=== PATIENT | male | born 1935 | race Caucasian/White ===

== ENCOUNTER 2020-07-28 16:58 | Emergency (ER) | payer MEDICARE, SELFPAY ==
--- NOTE | 2020-07-28 17:19 | PC.NURSE ---
Patient's family member states You seem busy today, we are going to go home and come back tomorrow morning. Patient walked out of ED without difficulty.
== END 2020-07-28 17:19 | disposition left against medical advice (07) ==
PROVIDERS: PCP Internal Medicine
DX: Z53.21 Procedure and treatment not carried out due to patient leaving prior to being seen by health care provider (principal)
CPT/HCPCS: 99199

== ENCOUNTER 2020-07-29 09:26 | Emergency (ER) | payer MEDICARE, SELFPAY ==
--- NOTE | ~2020-07-29 | US_ITS ---
EXAMINATION: US venous doppler LE RT DATE: 07/29/2020 11:08 INDICATION: Right lower limb swelling. TECHNIQUE: Grayscale ultrasound images without and with compression and Doppler ultrasound images of the right lower extremity veins were obtained. COMPARISON: None. FINDINGS: The visualized portions of right common femoral vein, profunda (deep) femoral vein, femoral vein, pop liteal vein, peroneal veins, posterior tibial veins, and greater saphenous vein outflow are patent. IMPRESSION: 1. No deep venous thrombosis. Reviewed, dictated and finalized at location A.
[2020-07-29 09:41] VITALS: BP 155/56; PULSE 91; RESP 17; TEMP 36.7; O2SAT 99
--- NOTE | 2020-07-29 10:42 | ED.EXTPRO ---
HPI - Extremity Problem General Chief complaint: Extremity Problem,Nontraumatic Stated complaint: poss DVT right leg Time Seen by Provider: 07/29/20 09:39 Source: patient, family and RN notes reviewed Limitations: no limitations History of Present Illness HPI Narrative: Patient is 85 years old white male referred to the emergency room by his family physician to rule out the possibility of ITP and deep vein thrombosis. Patient's home visiting nurse called the family physician telling him that patient right lower leg looks like having petechiae, patient is asymptomatic. 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 Patient denies any trauma, fever, chills, nausea, vomiting, shortness of breath, chest pain. Related Data Home Medications Medication Instructions Recorded Confirmed bimatoprost 0.01 % eye drops 1 drop EACH EYE DAILY 10/30/19 06/11/20 calcium carbonate 200 mg calcium 200 mg PO BID 10/30/19 06/11/20 (500 mg) chewable tablet famotidine 20 mg tablet 20 mg PO DAILY 10/30/19 06/11/20 omeprazole 20 mg capsule,delayed 20 mg PO DAILY 10/30/19 06/11/20 release vitamins A,C,O-wqmw-bfiiau 14,320 1 cap PO BID 10/30/19 06/11/20 unit-226 mg-200 unit capsule cholecalciferol (vitamin D3) 125 125 mcg PO DAILY 05/07/20 06/11/20 mcg (5,000 unit) capsule glucosamine 500 cap PO DAILY cap 06/11/20 06/11/20 ky-bgdandotc-tdmoxccd comp 400 mg-D3 667 unit-C-Mn cap lidocaine HCl 4 % topical cream 1 applic TOPICAL BID 06/11/20 06/11/20 magnesium 250 mg tablet 500 mg PO DAILY tablet 06/11/20 06/11/20 naproxen sodium 220 mg tablet 220 mg PO BID PRN 06/11/20 06/11/20 Allergies Allergy/AdvReac Type Severity Reaction Status Date / Time Sulfa (Sulfonamide Allergy Unknown rash Verified 07/29/20 09:47 Antibiotics) Review of Systems Review of Systems: Narrative: CONSTITUTIONAL: Denies fever, chills, or sweats. EYES: Denies visual changes, redness, or discharge. ENT: Denies rhinorrhea, congestion, sore throat, or otalgia. CARDIOVASCULAR: Denies chest pain, palpitations, or edema. RESPIRATORY: Denies cough or dyspnea. GASTROINTESTINAL: Denies abdominal pain, nausea, vomiting, or diarrhea. GENITOURINARY: Denies dysuria or hematuria. SKIN: Denies rash or itching. MUSCULOSKELETAL: Denies back pain, joint pain, or myalgia. NEUROLOGIC: Denies headache, numbness, or weakness. PSYCHIATRIC: Denies anxiety or depression. [facility] Family History Family History Mother Hypertension Cerebrovascular accident, Onset Age: 70 Family history of diabetes mellitus in first degree relative Father Patient's father is Social History Social History Smoking status: Never smoker Second hand tobacco smoke exposure: No Alcohol intake: never Substance use: never Gender identity (if verbalized by the patient): Male Exam Narrative: Exam Narrative: General appearance: Well-developed, well-nourished Skin: Normal color, left lower extremity showed brownish discoloration of the lower leg with scattered brownish spots varies between 2 mm to 5 mm. Right lower leg showed scattered petechiae, superficial ulceration up to 1 cm, no discharge, no tenderness, no warmth. Head: Normocephalic, nontraumatic Eyes: Clear conjunctiva ENT: Oropharynx normal, ears normal, nose normal Neck: Supple, nontender Chest and respiratory: Airway patent, no respiratory distress, no accessory muscle use Heart: Regular rate/rhythm Abdomen: Soft, nontender, no organomegaly, quiet bowel sounds Vascular: Normal peripheral pulses, normal capillary refill. Musculoskeletal: Normal range of motion, nontender back Neurologic: Alert and oriented ?3, PIZZAMAKER is normal as tested, no gross motor deficit
--- NOTE | 2020-07-29 10:54 | PC.NURSE ---
Pt to U/S via stretcher at this time.
[2020-07-29 11:00] LABS: Hematocrit 36.3 % (42.0-52.0); Hemoglobin 11.9 g/dL (14.0-18.0); Mean Corpuscular HGB Conc 32.8 g/dl (32-36); Mean Corpuscular Hemoglobin 28.6 pg (26-34); Mean Corpuscular Volume 87.3 fl (80-100); Mean Platelet Volume 10.8 fl (7.4-10.4); Platelet Count Result 110 k/mm3 (150-375); Red Blood Count 4.16 M/mm3 (4.6-6.20); Red Cell Distribution Width 14.6 % (11.5-14.5); White Blood Count 9.1 K/mm3 (4.5-10.0)
[2020-07-29 11:12] LABS: INR 1.1; Prothrombin Time 14.4 Seconds (11.1-14.7)
[2020-07-29 11:13] LABS: Alanine Aminotransferase 11 U/L (4-50); Albumin Level 4.1 g/dL (3.5-5.1); Alkaline Phosphatase 74 U/L (38-126); Anion Gap 6 mmol/L (8-16); Aspartate Amino Transferase 27 U/L (17-59); Bilirubin,Total 0.5 mg/dL (0.2-1.3); Blood Urea Nitrogen 27 mg/dL (9-20); Calcium 9.1 mg/dL (8.4-10.2); Carbon Dioxide 28 mmol/L (22-30); Chloride 104 mmol/L (98-107); Estimated CRCL calculation 34 ml/min; Estimated Glomerular Filt Rate 48; Glucose 106 mg/dL (75-110); Partial Thromboplastin Time 29.4 SECONDS (22.3-36.8); Potassium 5.4 mmol/L (3.4-5.0); Sodium 138 mmol/L (137-145)
[2020-07-29 11:41] VITALS: PULSE 66; RESP 17; O2SAT 99
[2020-07-29 12:08] VITALS: BP 146/65; PULSE 80; RESP 13; O2SAT 99
[2020-07-29 12:42] LABS: Lymphocytes Absolute Manual 0.36 K/mm3 (1.1-4.5); Neutrophils Percent Manual 96 % (46-73); Nucleated Red Blood Cells 1 %; Platelet Estimate Adequate (Adequate); Total Cells Counted 100
== END 2020-07-29 12:10 | disposition home or self-care (01) ==
PROVIDERS: Emergency Provider Emergency Medicine; PCP Internal Medicine
DX: I87.2 Venous insufficiency (chronic) (peripheral) (principal); D69.6 Thrombocytopenia, unspecified; E87.5 Hyperkalemia
CPT/HCPCS: 36415; 80053; 85025; 85610; 85730; 93971; 99284

== ENCOUNTER 2021-02-20 13:16 | Outpatient (NON) | payer MEDICARE, SELFPAY ==
[2021-02-20 14:18] LABS: Basophils Percent Auto 0.1 % (0.2-1.2); Eosinophils Absolute Auto 0.1 K/mm3 (0-0.3); Eosinophils Percent Auto 1.5 % (0-4.4); Hematocrit 34.9 % (42.0-52.0); Hemoglobin 11.2 g/dL (14.0-18.0); Immature Granulocyte Absolute 0.02 K/mm3 (0.00-0.031); Immature Granulocyte Percent A 0.3 % (0-0.5); Lymphocytes Absolute Auto 1.62 K/mm3 (0.9-3.2); Lymphocytes Percent Auto 21.4 % (18.3-44.2); Mean Corpuscular HGB Conc 32.1 g/dl (32-36); Mean Corpuscular Volume 90.4 fl (80-100); Mean Platelet Volume 11.3 fl (7.4-10.4); Monocytes Absolute Auto 0.6 K/mm3 (0.1-0.6); Monocytes Percent Auto 7.9 % (2.6-8.5); Neutrophils Absolute Auto 5.2 K/mm3 (1.3-6.7); Neutrophils Percent Auto 68.8 % (45.5-73.1); Platelet Count Result 118 k/mm3 (150-375); Red Blood Count 3.86 M/mm3 (4.6-6.20); Red Cell Distribution Width 14.6 % (11.5-14.5); White Blood Count 7.6 K/mm3 (4.5-10.0)
[2021-02-20 14:52] LABS: Alanine Aminotransferase 12 U/L (4-50); Albumin Level 3.9 g/dL (3.5-5.1); Alkaline Phosphatase 73 U/L (38-126); Anion Gap 1 mmol/L (8-16); Aspartate Amino Transferase 25 U/L (17-59); Bilirubin,Total 0.5 mg/dL (0.2-1.3); Blood Urea Nitrogen 19 mg/dL (9-20); Calcium 8.9 mg/dL (8.4-10.2); Carbon Dioxide 31 mmol/L (22-30); Chloride 103 mmol/L (98-107); Estimated Glomerular Filt Rate > 60; Glucose 93 mg/dL (65-110); Potassium 4.9 mmol/L (3.4-5.0); Sodium 135 mmol/L (137-145)
== END 2021-02-20 13:17 | disposition home or self-care (01) ==
PROVIDERS: PCP Internal Medicine; Visit Provider Internal Medicine
DX: D64.9 Anemia, unspecified (principal); E03.9 Hypothyroidism, unspecified; L03.115 Cellulitis of right lower limb; L97.911 Non-pressure chronic ulcer of unspecified part of right lower leg limited to breakdown of skin; I10 Essential (primary) hypertension
CPT/HCPCS: 80053; 85025; 87070; 87077; 87186; 87205

== ENCOUNTER 2021-04-16 12:42 | Outpatient (NON) | payer MEDICARE, SELFPAY | END 2021-04-16 12:43 | disposition home or self-care (01) | LOC: HOME HLTH 12:49 | PROVIDERS: PCP Internal Medicine; Visit Provider Internal Medicine | DX: L03.115 Cellulitis of right lower limb (principal); L97.911 Non-pressure chronic ulcer of unspecified part of right lower leg limited to breakdown of skin; D64.9 Anemia, unspecified; E03.9 Hypothyroidism, unspecified | CPT/HCPCS: 87070; 87077; 87186; 87205 ==

== ENCOUNTER 2021-05-26 01:44 | Inpatient (IN) | payer MEDICARE, SELFPAY ==
[2021-05-26] VITALS (37 sets, daily range): BP systolic 142–191; BP diastolic 59–82; PULSE 69–94; RESP 9–26; TEMP 36.2–36.6; O2SAT 96–100; BMI 27.1; BMI 10.0
--- NOTE | 2021-05-26 02:21 | ED.GENADULT ---
HPI - General Adult General Chief complaint: Weakness Stated complaint: BILATERAL LEGS CANT TIM Shaffer POSS Time Seen by Provider: 05/26/21 01:52 History of Present Illness HPI narrative: 86-year-old male presented emergency department for evaluation of generalized weakness. Patient states he does live at home alone. Patient states that his family members who usually take care of them are sick and have been staying away . Patient states this evening he went to try and use bathroom and felt his legs were too weak for him to move. Patient feels that this has been an issue that has been steadily worsening he does not feel this issue is new to [facility]. Patient stated himself that he feels he needs to go into the penitentiary, patient states it is time . Patient denies any chest pain or shortness of breath. Patient denies any nausea vomiting or diarrhea. Patient denies any focal numbness or weakness. Related Data Home Medications Medication Instructions Recorded Confirmed bimatoprost 0.01 % eye drops 1 drop EACH EYE DAILY 10/30/19 02/23/21 calcium carbonate 200 mg calcium 200 mg PO BID 10/30/19 02/23/21 (500 mg) chewable tablet vitamins A,C,X-xrhy-fkexuc 14,320 1 cap PO BID 10/30/19 02/23/21 unit-226 mg-200 unit capsule cholecalciferol (vitamin D3) 125 125 mcg PO DAILY 05/07/20 02/23/21 mcg (5,000 unit) capsule glucosamine 500 cap PO DAILY cap 06/11/20 02/23/21 tl-mzhltuyuf-mhdobrle comp 400 mg-D3 667 unit-C-Mn cap lidocaine HCl 4 % topical cream 1 applic TOPICAL BID 06/11/20 02/23/21 magnesium 250 mg tablet 500 mg PO DAILY tablet 06/11/20 02/23/21 naproxen sodium 220 mg tablet 220 mg PO BID PRN 06/11/20 02/23/21 ascorbic acid (vitamin C) 500 mg mg PO 02/23/21 02/23/21 capsule zinc acetate 25 mg (zinc) capsule 25 mg PO DAILY 02/23/21 02/23/21 Allergies Allergy/AdvReac Type Severity Reaction Status Date / Time Sulfa (Sulfonamide Allergy Unknown rash Verified 05/26/21 01:52 Antibiotics) Review of Systems Review of Systems: CONSTITUTIONAL: Reports increased generalized weakness, reports falls EYES: Denies visual changes, redness, or discharge. ENT: Denies rhinorrhea, congestion, sore throat, or otalgia. CARDIOVASCULAR: Denies chest pain, palpitations, or edema. RESPIRATORY: Denies cough or dyspnea. GASTROINTESTINAL: Denies abdominal pain, nausea, vomiting, or diarrhea. GENITOURINARY: Denies dysuria or hematuria. SKIN: Denies rash or itching. MUSCULOSKELETAL: Denies back pain, joint pain, or myalgia. NEUROLOGIC: Denies headache, numbness, or weakness. Does report generalized weakness but no focal weakness PMFSH Family History Family History Mother Hypertension Cerebrovascular accident, Onset Age: 70 Family history of diabetes mellitus in first degree relative Father Patient's father is Social History Social History Smoking status: Never smoker Second hand tobacco smoke exposure: No Alcohol intake: never Substance use: never Gender identity (if verbalized by the patient): Male Exam Narrative: APPEARANCE: Well appearing, no pain, no distress, well-nourished. HEAD: normocephalic, atraumatic. EYES: PERRLA/EOMI, conjunctivae clear. NOSE: Normal no drainage NECK: Supple. No adenopathy, no masses. RESPIRATORY: Airway patent, respirations nonlabored. Clear to auscultation bilaterally, no rales, rhonchi, wheezing. CARDIOVASCULAR: Regular rate and rhythm without murmurs rubs or gallops. ABDOMINAL: Soft, nontender, nondistended, normal bowel sounds MUSCULOSKELETAL: Moves all extremities. Strength/ROM intact, No edema, No calf tenderness. Some bruises to lower extremities NEURO: Alert. Cranial nerves II through XII intact. Good coordination SKIN: Warm, dry. Normal Color Course Course Emergency Course: Patient states he is requesting penitentiary
[2021-05-26 02:34] LABS: Basophils Percent Auto 0.1 % (0.2-1.2); Eosinophils Absolute Auto 0.2 K/mm3 (0-0.3); Eosinophils Percent Auto 2.1 % (0-4.4); Hematocrit 37.3 % (42.0-52.0); Hemoglobin 11.9 g/dL (14.0-18.0); Immature Granulocyte Absolute 0.01 K/mm3 (0.00-0.031); Immature Granulocyte Percent A 0.1 % (0-0.5); Lymphocytes Absolute Auto 1.97 K/mm3 (0.9-3.2); Lymphocytes Percent Auto 28.1 % (18.3-44.2); Mean Corpuscular HGB Conc 31.9 g/dl (32-36); Mean Corpuscular Hemoglobin 28.5 pg (26-34); Mean Corpuscular Volume 89.2 fl (80-100); Mean Platelet Volume 10.8 fl (7.4-10.4); Monocytes Absolute Auto 0.7 K/mm3 (0.1-0.6); Monocytes Percent Auto 10.5 % (2.6-8.5); Neutrophils Absolute Auto 4.1 K/mm3 (1.3-6.7); Neutrophils Percent Auto 59.1 % (45.5-73.1); Platelet Count Result 104 k/mm3 (150-375); Red Blood Count 4.18 M/mm3 (4.6-6.20); Red Cell Distribution Width 14.7 % (11.5-14.5)
[2021-05-26 02:54] LABS: Alanine Aminotransferase 15 U/L (4-50); Albumin Level 4.3 g/dL (3.5-5.1); Alkaline Phosphatase 84 U/L (38-126); Anion Gap 7 mmol/L (8-16); Aspartate Amino Transferase 28 U/L (17-59); Bilirubin,Total 0.6 mg/dL (0.2-1.3); Blood Urea Nitrogen 21 mg/dL (9-20); Calcium 9.4 mg/dL (8.4-10.2); Carbon Dioxide 26 mmol/L (22-30); Chloride 102 mmol/L (98-107); Estimated CRCL calculation 42 ml/min; Estimated Glomerular Filt Rate 57; Glucose 114 mg/dL (65-110); Potassium 4.3 mmol/L (3.4-5.0); Sodium 135 mmol/L (137-145)
[2021-05-26 03:25] LABS: SARS-CoV-2 RNA PCR Negative
--- NOTE | 2021-05-26 03:26 | ECG_ITS ---
Measurements Intervals [place] Rate: 85 P: 63 UT: 176 QRS: 0 QRSD: 92 T: 59 QT: 361 QTc: 429 Interpretive Statements SINUS RHYTHM ATRIAL PREMATURE COMPLEX CANNOT RULE OUT SEPTAL INFARCT, AGE INDETERMINATE BASELINE ARTIFACT- I, II, III, AVR, AVL, AVF, V1, V3-V5 ABNORMAL ECG Electronically Signed On 05-26-2021 6:12:16 FENCE MACHINE OPERATOR by Greg Mesa D.O.
[2021-05-26 04:15] LABS: Add Urine Microscopic? NO; Appearance Urine Clear (Clear); Bilirubin Urine Negative (Negative); Blood Urine Negative (Negative); Color Urine Colorless (Yellow); Glucose Urine UA Negative (Negative); Ketones Urine Negative (Negative); Leukocyte Esterase Ur Negative LEU/UL (Negative); Nitrate Urine Negative (Negative); Protein Urine Negative (Negative); RBC Urine 0-2 /hpf (0-2); Specific Grav Ur 1.005 (1.001-1.035); Urobilinogen Urine Negative mg/dL (<2.0); WBC Urine 0-3 /hpf
--- NOTE | 2021-05-26 07:02 | ADMGEN ---
This patient, Sebastián Andersen, was admitted to Medical Room 340-01. Patient/family oriented to hospital policies and general routines including ID bracelet, bed and alarms, visiting hours, pain management, procedures, bathroom and other care routines, personal items, smoking policy, room service/diet, and visiting hours. Information on how to activate the Rapid Response Team has been discussed. Patient/Family are encouraged to report perceived risks to care and to ask questions if they do not understand what they are told or what they should do.
[2021-05-26] MEDS: NAPROXEN SODIUM 220 MG TABLET PO (12:16)
[2021-05-26] MEDS: MENTHOL 10% / METHYL SALICYLATE 15% 57 GM TUBE 1 APPLIC TOPICAL (12:19)
--- NOTE | 2021-05-26 13:25 | PM.IMHP ---
H&P: HPI History of Present Illness Date/Time: 05/26/21 13:25 ED-HPI narrative: 86-year-old male presented emergency department for evaluation of generalized weakness. Patient states he does live at home alone. Patient states that his family members who usually take care of them are sick and have been staying away . Patient states this evening he went to try and use bathroom and felt his legs were too weak for him to move. Patient feels that this has been an issue that has been steadily worsening he does not feel this issue is new to tonight. Patient stated himself that he feels he needs to go into the intermediate, patient states it is time . today patient continued to express he is tired, unable to ambulate and needs assistance with his ADL and would like to be placed in intermediate, discussed with the patient will start the patient on physical therapy occupation therapy and evaluate the patient, patient may benefit going to a residential facility with gentle rehab before discharging home or intermediate. patient admitted observation status Chief Complaint: generalized weakness Review of Systems Review of Systems: All systems reviewed & are unremarkable except as noted in HPI and below PMFSH Family History Family History Mother Hypertension Cerebrovascular accident, Onset Age: 70 Family history of diabetes mellitus in first degree relative Father Patient's father is Social History Social History Smoking status: Former smoker Second hand tobacco smoke exposure: No Alcohol intake: never Substance use: never Substance use type: does not use Gender identity (if verbalized by the patient): Male Spiritual care concerns: No Meds Home Medications and Allergies Home Medications Medication Instructions Recorded Confirmed Type bimatoprost 0.01 % eye drops 1 drop EACH EYE DAILY 10/30/19 05/26/21 History calcium carbonate 200 mg calcium 200 mg PO BID PRN 10/30/19 05/26/21 History (500 mg) chewable tablet vitamins A,C,U-ckgt-uswyin 14,320 1 cap PO BID 10/30/19 05/26/21 History unit-226 mg-200 unit capsule vitamin B12 0.5 mg-folic acid 1 mg 1 tablet PO DAILY #30 tablet 11/19/19 05/26/21 Rx tablet cholecalciferol (vitamin D3) 125 125 mcg PO DAILY 05/07/20 05/26/21 History mcg (5,000 unit) capsule glucosamine 500 1 cap PO DAILY cap 06/11/20 05/26/21 History zt-isiwcnexj-dthalwgs comp 400 mg-D3 667 unit-C-Mn cap lidocaine HCl 4 % topical cream 1 applic TOPICAL BID PRN 06/11/20 05/26/21 History magnesium 250 mg tablet 500 mg PO DAILY tablet 06/11/20 05/26/21 History naproxen sodium 220 mg tablet 220 mg PO BID PRN 06/11/20 05/26/21 History triamcinolone acetonide 0.1 % 1 applic TOPICAL BID #80 g 08/08/20 05/26/21 Rx topical cream levothyroxine 137 mcg tablet 137 mcg PO DAILY #90 tablet 02/19/21 05/26/21 Rx ascorbic acid (vitamin C) 500 mg 500 mg PO DAILY 02/23/21 05/26/21 History capsule omeprazole 20 mg capsule,delayed 20 mg PO DAILY #90 cap 02/23/21 05/26/21 Rx release zinc acetate 25 mg (zinc) capsule 25 mg PO DAILY 02/23/21 05/26/21 History metoprolol tartrate 12.5 mg PO DAILY 05/26/21 05/26/21 History Allergies Allergy/AdvReac Type Severity Reaction Status Date / Time Sulfa (Sulfonamide Allergy Unknown rash Verified 05/26/21 07:32 Antibiotics) Vital Signs Vital Signs - 24 hr 05/26/21 01:43 05/26/21 01:48 05/26/21 01:49 Temperature 97.4 F L Pulse Rate 86 83 86 Respiratory Rate 17 16 18 Blood Pressure 181/81 H 191/67 H 181/81 H Pulse Oximetry 100 100 100 05/26/21 01:50 05/26/21 01:51 05/26/21 02:00 Temperature Pulse Rate 83 94 85 Respiratory Rate 17 16 Blood Pressure Pulse Oximetry 100 99 05/26/21 02:01 05/26/21 02:15 05/26/21 02:16 Temperature Pulse Rate 86 83 85 Respiratory Rate 12 16
--- NOTE | 2021-05-26 14:06 | PC.NURSE ---
On 05/26/21, the student, Ifrah Landrum, provided care and completed [facility] documentation on this patient. I have reviewed the student's documentation and agree with the findings.
[2021-05-26] MEDS: OPTI-GEN TAB 1 TABLET PO (16:49)
[2021-05-27] VITALS (7 sets, daily range): BP systolic 113–165; BP diastolic 58–85; PULSE 76–88; RESP 16–18; TEMP 36–37.1; O2SAT 97–99
[2021-05-27] MEDS: MENTHOL 10% / METHYL SALICYLATE 15% 57 GM TUBE 1 APPLIC TOPICAL (04:57)
[2021-05-27] MEDS: LEVOTHYROXINE SODIUM 25 MCG TABLET PO (05:44)
[2021-05-27] MEDS: LEVOTHYROXINE SODIUM 112 MCG TABLET PO (05:44)
[2021-05-27] MEDS: METOPROLOL TARTRATE 12.5 MG TABLET PO (08:02)
[2021-05-27] MEDS: PANTOPRAZOLE 40 MG TABLET PO (08:02)
[2021-05-27] MEDS: FOLIC ACID 1 MG TABLET PO (08:02)
[2021-05-27] MEDS: OPTI-GEN TAB 1 TABLET PO ×2 (08:03→17:30)
[2021-05-27] MEDS: CHOLECALCIFEROL 1,000 UNITS TABLET 5000 UNITS PO (08:03)
[2021-05-27] MEDS: LATANOPROST 0.005% OP SOLN 2.5 ML BTL 1 DROP EACH EYE (08:03)
[2021-05-27] MEDS: ASCORBIC ACID 500 MG TABLET PO (08:03)
[2021-05-27] MEDS: MAGNESIUM 27 MG TABLET (500 MG MAG GLUCONATE) PO (08:03)
[2021-05-27] MEDS: ZINC SULFATE 220 MG CAPSULE PO (08:03)
[2021-05-27] MEDS: CYANOCOBALAMIN 500 MCG TABLET PO (08:03)
[2021-05-27] MEDS: NAPROXEN SODIUM 220 MG TABLET PO ×2 (09:19→20:15)
--- NOTE | 2021-05-27 15:18 | PM.IMPN ---
Progress Note: A&P Assessment and Plan (1) Generalized weakness: Code(s): R53.1 - Weakness Status: Acute Assessment and Plan: ED-HPI narrative: 86-year-old male presented emergency department for evaluation of generalized weakness. Patient states he does live at home alone. Patient states that his family members who usually take care of them are sick and have been staying away . Patient states this evening he went to try and use bathroom and felt his legs were too weak for him to move. Patient feels that this has been an issue that has been steadily worsening he does not feel this issue is new to [facility]. Patient stated himself that he feels he needs to go into the halfway, patient states it is time . 05/26/2021 Interval history: patient continued to express he is tired, unable to ambulate and needs assistance with his ADL and would like to be placed in halfway, discussed with the patient will start the patient on physical therapy occupation therapy and evaluate the patient patient may benefit going to a group home facility with gentle rehab before discharging home or halfway, 05/27/2021 Interval history: today again patient stated he does not base today PT OT or go to rehab will like to be admitted to nursing, patient was seen by careers adviser, and patient decided to go under hospice care will continue to monitor and further recommendation to follow. (2) Chronic pain of both knees: Code(s): M25.561 - Pain in right knee; M25.562 - Pain in left knee; G89.29 - Other chronic pain Status: Acute Assessment and Plan: will have a PT OT evaluate the patient (3) Essential (primary) hypertension: Code(s): I10 - Essential (primary) hypertension Status: Acute Assessment and Plan: continue home regimen and monitor (4) Paroxysmal atrial fibrillation: Onset Date: 06/15/17 Code(s): I48.0 - Paroxysmal atrial fibrillation Status: Acute Assessment and Plan: rate is controlled with beta-torres, patient is not anticoagulated due to risk of fall and injury (5) Hypothyroid: Code(s): E03.9 - Hypothyroidism, unspecified Status: Acute Assessment and Plan: will continue home regimen and monitor Subjective Date/time seen: 05/27/21 15:18 ED-HPI narrative: 86-year-old male presented emergency department for evaluation of generalized weakness. Patient states he does live at home alone. Patient states that his family members who usually take care of them are sick and have been staying away . Patient states this evening he went to try and use bathroom and felt his legs were too weak for him to move. Patient feels that this has been an issue that has been steadily worsening he does not feel this issue is new to [facility]. Patient stated himself that he feels he needs to go into the halfway, patient states it is time . 05/26/2021 Interval history: patient continued to express he is tired, unable to ambulate and needs assistance with his ADL and would like to be placed in halfway, discussed with the patient will start the patient on physical therapy occupation therapy and evaluate the patient patient may benefit going to a group home facility with gentle rehab before discharging home or halfway, 05/27/2021 Interval history: today again patient stated he does not base today PT OT or go to rehab will like to be admitted to nursing, patient was seen by careers adviser, and patient decided to go under hospice care will continue to monitor and further recommendation to follow. Review of Systems Review of Systems: All systems reviewed & are unremarkable except as noted in HPI and below Exam Narrative: elderly frail Patient is comfortable, NAD HEENT: eyes are clear and none icteric LUNGS: normal respiratory effort ABD: nondistended Lower extremities: no edema SKIN: nonjaundiced Neuro: grossly intact. Objective
[2021-05-28] MEDS: LEVOTHYROXINE SODIUM 112 MCG TABLET PO (05:53)
[2021-05-28] MEDS: LEVOTHYROXINE SODIUM 25 MCG TABLET PO (05:53)
[2021-05-28 06:05] VITALS: BP 151/70; PULSE 81; RESP 16; TEMP 36.1; O2SAT 99
[2021-05-28] MEDS: NAPROXEN SODIUM 220 MG TABLET PO (08:07)
[2021-05-28] MEDS: MAGNESIUM 27 MG TABLET (500 MG MAG GLUCONATE) PO (08:07)
[2021-05-28] MEDS: ZINC SULFATE 220 MG CAPSULE PO (08:07)
[2021-05-28] MEDS: FOLIC ACID 1 MG TABLET PO (08:07)
[2021-05-28] MEDS: OPTI-GEN TAB 1 TABLET PO (08:08)
[2021-05-28] MEDS: PANTOPRAZOLE 40 MG TABLET PO (08:08)
[2021-05-28] MEDS: CYANOCOBALAMIN 500 MCG TABLET PO (08:08)
[2021-05-28] MEDS: ASCORBIC ACID 500 MG TABLET PO (08:09)
[2021-05-28] MEDS: LATANOPROST 0.005% OP SOLN 2.5 ML BTL 1 DROP EACH EYE (08:09)
[2021-05-28] MEDS: CHOLECALCIFEROL 1,000 UNITS TABLET 5000 UNITS PO (08:09)
[2021-05-28 08:10] VITALS: PULSE 81
[2021-05-28] MEDS: METOPROLOL TARTRATE 12.5 MG TABLET PO (08:10)
[2021-05-28] MEDS: MENTHOL 10% / METHYL SALICYLATE 15% 57 GM TUBE 1 APPLIC TOPICAL (08:11)
--- NOTE | 2021-05-28 11:46 | PM.DS ---
DS: Admitting Diagnosis Discharge Date 05/28/2021 Admitting Diagnosis Generalized weakness DS: Discharge Diagnosis Discharge Diagnosis (1) Generalized weakness: Code(s): R53.1 - Weakness Status: Acute Assessment and Plan: ED-HPI narrative: 86-year-old male presented emergency department for evaluation of generalized weakness. Patient states he does live at home alone. Patient states that his family members who usually take care of them are sick and have been staying away . Patient states this evening he went to try and use bathroom and felt his legs were too weak for him to move. Patient feels that this has been an issue that has been steadily worsening he does not feel this issue is new to [facility]. Patient stated himself that he feels he needs to go into the custodial, patient states it is time . 05/26/2021 Interval history: patient continued to express he is tired, unable to ambulate and needs assistance with his ADL and would like to be placed in custodial, discussed with the patient will start the patient on physical therapy occupation therapy and evaluate the patient patient may benefit going to a fpc facility with gentle rehab before discharging home or custodial, 05/27/2021 Interval history: today again patient stated he does not base today PT OT or go to rehab will like to be admitted to nursing, patient was seen by lawn care technician, and patient decided to go under hospice care will continue to monitor and further recommendation to follow. (2) Chronic pain of both knees: Code(s): M25.561 - Pain in right knee; M25.562 - Pain in left knee; G89.29 - Other chronic pain Status: Acute Assessment and Plan: will have a PT OT evaluate the patient (3) Essential (primary) hypertension: Code(s): I10 - Essential (primary) hypertension Status: Acute Assessment and Plan: continue home regimen and monitor (4) Paroxysmal atrial fibrillation: Onset Date: 06/15/17 Code(s): I48.0 - Paroxysmal atrial fibrillation Status: Acute Assessment and Plan: rate is controlled with beta-torres, patient is not anticoagulated due to risk of fall and injury (5) Hypothyroid: Code(s): E03.9 - Hypothyroidism, unspecified Status: Acute Assessment and Plan: will continue home regimen and monitor DS: Summary Hospital Course Reason for hospitalization: ED-HPI narrative: 86-year-old male presented emergency department for evaluation of generalized weakness. Patient states he does live at home alone. Patient states that his family members who usually take care of them are sick and have been staying away . Patient states this evening he went to try and use bathroom and felt his legs were too weak for him to move. Patient feels that this has been an issue that has been steadily worsening he does not feel this issue is new to tonight. Patient stated himself that he feels he needs to go into the custodial, patient states it is time . today patient continued to express he is tired, unable to ambulate and needs assistance with his ADL and would like to be placed in custodial, discussed with the patient will start the patient on physical therapy occupation therapy and evaluate the patient, patient may benefit going to a fpc facility with gentle rehab before discharging home or custodial. Hospital Course: ED-HPI narrative: 86-year-old male presented emergency department for evaluation of generalized weakness. Patient states he does live at home alone. Patient states that his family members who usually take care of them are sick and have been staying away . Patient states this evening he went to try and use bathroom and felt his legs were too weak for him to move. Patient feels that this has been an issue that has been steadily worsening he does not feel this issue is new to [facility]. Patient stated himself that he feels he
[2021-05-28 13:43] VITALS: BP 155/68; PULSE 85; RESP 18; TEMP 36.1; O2SAT 98
[2021-05-28 14:15] LABS: EDCOVIDSCREEN Negative (Negative)
[2021-05-28 14:28] VITALS: O2SAT 97
--- NOTE | 2021-05-28 15:15 | PC.NURSE ---
Addendum entered by Valentino Sherwood RN 05/28/21 17:28: 1730: Transportation arrived at this time. Addendum entered by Valentino Sherwood RN 05/28/21 17:05: 1536: [facility] was called at this time, stated will be able to pick patient up at 19:30. Trip number is [id number]: Called patient brother at this time, no answer. Message left and updated, about what time patient will arrive at [facility]. Original Note: 1515: Report given to Chica MAI, at [facility] at this time.
== END 2021-05-28 17:27 | disposition hospice, inpatient (51) | DRG 948 ==
LOC: ANHED 03:31 → ANH3MED 05:47
PROVIDERS: Admitting Provider Internal Medicine; Emergency Provider Emergency Medicine; PCP Internal Medicine; Visit Provider Family Medicine
DX: R53.1 Weakness (principal); Z20.822 Contact with and (suspected) exposure to COVID-19; Z87.891 Personal history of nicotine dependence; M25.561 Pain in right knee; I10 Essential (primary) hypertension; I48.0 Paroxysmal atrial fibrillation; E03.9 Hypothyroidism, unspecified; M25.562 Pain in left knee; G89.29 Other chronic pain; Z74.1 Need for assistance with personal care; Z79.899 Other long term (current) drug therapy
CPT/HCPCS: 36415; 80053; 81003; 83605; 85025; 87426; 93005; 97110; 97162; 97165; 97535; 99285; A9270; C9803; U0003; U0005

== ENCOUNTER 2022-01-19 20:59 | Inpatient (IN) | payer MEDICARE, SELFPAY ==
--- NOTE | ~2022-01-19 | US_ITS ---
US abdomen limited INDICATION: Abnormal liver function tests. PROCEDURE: Realtime right upper abdominal ultrasound. COMPARISON: No prior studies for comparison. FINDINGS: The pancreas is normal without focal mass or pancreatic ductal dilation. Liver echotexture is normal without focal mass or intrahepatic biliary dilatation. Liver is enlarged measuring 16.6 cm . There is normal directional flow in the portal vein. Gallbladder is surgically absent. Common bile duct measures 2 mm. IMPRESSION: 1: Hepatomegaly. 2: Status post cholecystectomy. Reviewed, dictated and finalized at location B.
--- NOTE | ~2022-01-19 | CT_ITS ---
EXAMINATION: CT abdomen pelvis w con DATE: 01/19/2022 22:18 INDICATION: Transaminitis, fever TECHNIQUE: Computed tomography (CT) of the abdomen and pelvis was performed with 100 mL Omnipaque-350 intravenous contrast. Automated exposure control and iterative reconstruction technique were employe d. The dose-length product was 464.61 mGy-cm. COMPARISON: None. FINDINGS: Mild motion artifact. Lower thorax: Senescent change and dependent atelectasis. Mild coronary artery calcification. Liver: Mild intrahepatic duct dilation. Granulomatous calcification. Biliary/Gallbladder: Gallbladder is absent. The common bile duct is dilated to 11 mm, without inflamm atory change. Pancreas: No mass or duct dilation. Spleen: Granulomatous calcification. Adrenals:No mass. Kidneys: Cortical atrophy. No suspicious mass. No hydronephrosis. No nephrolithiasis. GI tract: Antral gastric wall edema. No small or large bowel dilation. Appendix not visualized, likel y surgically absent Mesentery/Peritoneum: No ascites, mass, or free air. Retroperitoneum: No mass. Atherosclerotic abdominal aortic and/or arterial calcifications. Pelvis: Partial obscuration by metal artifact. Mild bladder wall thickening. Marked prostatomegaly. Soft Tissues: Bilateral hydroceles. Soft tissues and body wall otherwise unremarkable. Bones: No acute osseous finding. Severe left hip arthritis. Uncomplicated right hip arthroplasty. IMPRESSION: Intra and extrahepatic bile duct dilation, without inflammatory changes or obstructing stone or mass, commonly attributed to the postcholecystectomy state, noting that early cholangitis could appear sim ilar. Antral gastritis. Reviewed, dictated and finalized at location K. IMPRESSION: Intra and extrahepatic bile duct dilation, without inflammatory changes or obst ructing stone or mass, commonly attributed to the postcholecystectomy state, no ting that early cholangitis could appear similar. Antral gastritis.
--- NOTE | ~2022-01-19 | XR_ITS ---
XR abdomen obstructive series 01/22/2022 21:56 Indication: Abdomen surgery. Procedure: Supine and upright views of the abdomen Comparison: No prior studies for comparison. Findings: There is retrocardiac opacification of the left lower lung which may represent atelectasis or developing pneumonia. There is moderate gas throughout the small bowel and colon. Moderate distal colonic fecal loading. No definite obstruction. There are severe osteoarthritis of the left hip. Ther e is a right total hip arthroplasty. No free air. There are cholecystectomy clips. Impression: 1: Nonspecific bowel gas pattern without definite obstruction. 2: Severe osteoarthritis of the left hip. 3: Retrocardiac airspace disease may represent atelectasis or pneumonia. Reviewed, dictated and finalized at location A. Impression: 1: Nonspecific bowel gas pattern without definite obstruction. 2: Severe osteoarthritis of the left hip. 3: Retrocardiac airspace disease may represent atelectasis or pneumonia.
--- NOTE | ~2022-01-19 | XR_ITS ---
EXAMINATION: XR ERCP DATE: 01/22/2022 14:43 INDICATION: Abdominal pain. TECHNIQUE: 5 spot fluoroscopic images of the right upper quadrant were obtained during endoscopic ret rograde cholangiopancreatography (ERCP). Fluoroscopy exposure time was 70 seconds. COMPARISON: MRCP 01/20/2022 FINDINGS: The endoscope is in the second portion of the duodenum. There is contrast opacification of the common duct, which is enlarged. IMPRESSION: 1. Enlarged common duct. Please refer to the ERCP procedure note for additional details. Reviewed, dictated and finalized at location B.
--- NOTE | ~2022-01-19 | XR_ITS ---
EXAMINATION: XR chest 1V portable Exam Date/Time: 01/19/2022 21:12 CDT HISTORY: fever, nausea; former smoker Comparison: None available. RESULT: Lines, tubes, and devices: None. Lungs and pleura: 1.4 cm spiculated nodular density projecting over the mid/upper right lung. Senesc ent change. Lungs are otherwise clear. Cardiomediastinal silhouette: Stable. Other: No acute osseous or upper abdominal finding. IMPRESSION: No acute cardiopulmonary process. Possible 1.4 cm pulmonary nodule, recommend nonemergent outpatient CT of the chest for further evaluation. Reviewed, dictated and finalized at location K. IMPRESSION: No acute cardiopulmonary process. Possible 1.4 cm pulmonary nodule, recommend n onemergent outpatient CT of the chest for further evaluation.
--- NOTE | ~2022-01-19 | MR_ITS ---
EXAMINATION: MR MRCP wo/w con/w 3D wo ind DATE: 01/20/2022 17:06 INDICATION: Abnormal liver function tests. Dilated bile ducts. TECHNIQUE: Magnetic resonance imaging (MRI) of the abdomen was performed without and with 15 mL Multi Gareth intravenous contrast. Sequences included coronal T2-weighted FS FSE, coronal T2-weighted FSE, a xial T1-weighted LAVA, coronal FS FIESTA, axial dual-echo T1-weighted SPGR, coronal lava-FLEX, sagitt al T2-weighted FSE, axial T2-weighted FSE, and axial DWI. Thick-slab T2-weighted FSE images were obta ined for magnetic resonance cholangiopancreatography (MRCP). Maximum intensity projection 3-D reconst ructions of the volumetric data were created by the technologist. Postcontrast sequences included cor onal LAVA-flex and time course of axial T1-weighted LAVA. COMPARISON: Ultrasound 01/20/2022, CT abdomen and pelvis 01/19/2022 FINDINGS: ABDOMEN MRI: There are tiny pleural effusions. There is moderate intrahepatic biliary duct dilatation . The common duct measures 14 mm. The gallbladder is absent. The pancreas, spleen, and adrenal glands are normal. There is cortical thinning of the kidneys. There are no dilated loops of bowel. ABDOMEN MRCP: There are multiple stones in the common duct. IMPRESSION: 1. Choledocholithiasis with moderate intrahepatic and extrahepatic biliary duct dilatation. Reviewed, dictated and finalized at location A.
[2022-01-19 21:05] VITALS: BP 147/59; PULSE 97; RESP 19; TEMP 40.2; O2SAT 99
[2022-01-19 21:21] VITALS: BP 147/59; PULSE 94; RESP 20; O2SAT 98
[2022-01-19] MEDS: IBUPROFEN 400 MG TABLET 800 MG PO (21:40)
--- NOTE | 2022-01-19 21:42 | ED.GENADULT ---
HPI - General Adult General Chief complaint: Fever Stated complaint: N/V, FEVER, BODY ACHES Time Seen by Provider: 01/19/22 21:06 History of Present Illness HPI narrative: 86-year-old male presented the emergency department evaluation of fever and right upper quadrant abdominal pain. Patient states symptoms started a few days ago. Patient does report associated nausea. Patient has a prior history of [place] cystectomy. Related Data Home Medications Medication Instructions Recorded Confirmed bimatoprost 0.01 % eye drops 1 drop ophthalmic (eye) DAILY 10/30/19 01/20/22 (Lumigan) calcium carbonate 200 mg calcium 200 mg PO BID PRN Indigestion 10/30/19 01/20/22 (500 mg) chewable tablet (Tums) vitamins A,C,X-clbm-nvbjyb 14,320 1 cap PO BID 10/30/19 01/20/22 unit-226 mg-200 unit capsule (ICaps AREDS) cholecalciferol (vitamin D3) 125 125 mcg PO DAILY 05/07/20 01/20/22 mcg (5,000 unit) capsule glucosamine 500 1 cap PO DAILY 06/11/20 01/20/22 mi-fijbsfnms-lszdqrkz comp 400 mg-D3 667 unit-C-Mn cap lidocaine HCl 4 % topical cream 1 applic topical BID PRN Pain 06/11/20 01/20/22 (Aspercreme (lidocaine HCl)) magnesium 250 mg tablet 500 mg PO DAILY 06/11/20 01/20/22 naproxen sodium 220 mg tablet 220 mg PO BID PRN Pain 06/11/20 01/20/22 (Flanax (naproxen)) ascorbic acid (vitamin C) 500 mg 500 mg PO DAILY 02/23/21 01/20/22 capsule zinc acetate 25 mg (zinc) capsule 25 mg PO DAILY 02/23/21 01/20/22 (Wilzin) metoprolol tartrate 25 mg tablet 12.5 mg PO DAILY 05/26/21 01/20/22 Allergies Allergy/AdvReac Type Severity Reaction Status Date / Time Sulfa (Sulfonamide Allergy Unknown rash Verified 01/20/22 05:01 Antibiotics) Review of Systems Review of Systems: CONSTITUTIONAL: Fever generalized weakness EYES: Denies visual changes, redness, or discharge. ENT: Denies rhinorrhea, congestion, sore throat, or otalgia. CARDIOVASCULAR: Denies chest pain, palpitations, or edema. RESPIRATORY: Denies cough or dyspnea. GASTROINTESTINAL: Right upper quadrant abdominal pain. GENITOURINARY: Denies dysuria or hematuria. SKIN: Denies rash or itching. MUSCULOSKELETAL: Denies back pain, joint pain, or myalgia. NEUROLOGIC: Denies headache, numbness, or weakness. PSYCHIATRIC: Denies anxiety or depression. [facility] Family History Family History Mother Hypertension Cerebrovascular accident, Onset Age: 70 Family history of diabetes mellitus in first degree relative Father Patient's father is Social History Social History Smoking status: Former smoker Second hand tobacco smoke exposure: No Alcohol intake: never Substance use: never Substance use type: does not use Gender identity (if verbalized by the patient): Male Spiritual care concerns: No Exam Narrative: APPEARANCE: Well appearing, no pain, no distress, well-nourished. HEAD: normocephalic, atraumatic. EYES: PERRLA/EOMI, conjunctivae clear. NOSE: Normal no drainage EARS:TMS clear with good light reflex. THROAT: Pharynx clear, no exudate. NECK: Supple. No adenopathy, no masses. RESPIRATORY: Airway patent, respirations nonlabored. Clear to auscultation bilaterally, no rales, rhonchi, wheezing. CARDIOVASCULAR: Regular rate and rhythm without murmurs rubs or gallops. ABDOMINAL: Soft, right upper quadrant tenderness to palpation MUSCULOSKELETAL: Moves all extremities. Strength/ROM intact, No edema, No calf tenderness. NEURO: Alert. Cranial nerves II through XII intact. Grossly intact SKIN: Warm, dry. Normal Color Course Course Emergency Course: Patient lactic acid is 2.1. Patient had elevation of his transaminases. Patient was treated with a dose of Zosyn for concern for cholangitis. Case was discussed with the hospitalist and patient was accepted for admission. Vital Signs Vital signs: Vital Signs Temperature 104.4 F
[2022-01-19 21:43] LABS: Hematocrit 35.1 % (42.0-52.0); Hemoglobin 11.7 g/dL (14.0-18.0); Mean Corpuscular HGB Conc 33.3 g/dl (32-36); Mean Corpuscular Hemoglobin 30.5 pg (26-34); Mean Corpuscular Volume 91.6 fl (80-100); Platelet Count Result 77 k/mm3 (150-375); Red Blood Count 3.83 M/mm3 (4.6-6.20); Red Cell Distribution Width 14.5 % (11.5-14.5); White Blood Count 10.5 K/mm3 (4.5-10.0)
[2022-01-19 21:52] LABS: Lactic Acid Reflex 2.1 mmol/L (0.7-2.0)
[2022-01-19 21:53] LABS: Alanine Aminotransferase 376 U/L (6-50); Albumin Level 3.9 g/dL (3.5-5.1); Alkaline Phosphatase 133 U/L (38-126); Anion Gap 9 mmol/L (8-16); Aspartate Amino Transferase 503 U/L (17-59); Bilirubin,Total 0.6 mg/dL (0.2-1.3); Blood Urea Nitrogen 24 mg/dL (9-20); Calcium 8.5 mg/dL (8.4-10.2); Carbon Dioxide 26 mmol/L (22-30); Chloride 101 mmol/L (98-107); Estimated CRCL calculation 35 ml/min; Estimated Glomerular Filt Rate 52; Glucose 140 mg/dL (65-110); Potassium 4.3 mmol/L (3.4-5.0); Sodium 136 mmol/L (137-145)
[2022-01-19 22:10] LABS: Anisocytosis 1+ (NORMAL); Band Neutrophils Percent 10 % (0-6); Eosinophils Percent Manual 1 % (0-4); Lymphocytes Absolute Manual 0.42 K/mm3 (1.1-4.5); Microcytosis 1+ (NORMAL); Monocytes Percent Manual 1 % (3-9); Neutrophils Absolute Manual 9.87 K/mm3 (1.3-6.7); Neutrophils Percent Manual 84 % (46-73); Ovalocytes 1+ (NORMAL); Poikilocytosis 1+ (NORMAL); Spherocytes 1+ (NORMAL); Tear Drop Cells 1+ (NORMAL); Total Cells Counted 100
[2022-01-19 22:11] LABS: Atypical Lymphocytes Present; Hypersegmented Neutrophils Present; Schistocytes None Seen (NORMAL); Toxic Granulation Present (NORMAL)
[2022-01-19 22:16] LABS: Influenza A QL RT-PCR Negative (Negative); Influenza B QL RT-PCR Negative (Negative); SARS-CoV-2 RNA PCR Negative
[2022-01-19 22:21] VITALS: BP 130/52; PULSE 93; RESP 18; TEMP 39.3; O2SAT 97
[2022-01-19 22:22] VITALS: TEMP 39.3
[2022-01-19 22:23] VITALS: TEMP 39.3
--- NOTE | 2022-01-19 22:54 | PM.IMHP ---
H&P: HPI History of Present Illness Date/Time: 01/19/22 22:54 Chief Complaint: fever Narrative: This is an 86-year-old male he is a skilled nursing resident he was brought for evaluation to the emergency room by his brother after he had an episode of fever of 104? F, nausea, vomiting generalized weakness, patient had not been able to eat in the holding and was overall not feeling well for the last 2 days or so. Patient is unable to give much history however complains of diffuse abdominal pain, patient is alert be circumstantial overall cannot really give a good history. Most of the history has been obtained from brother who is in the emergency room at bedside according in to broader he used to live by himself in an apartment however patient became unable to take care of himself and moved to skilled nursing he has been there and relatively doing well. preliminary workup was significant for CMP with AST ALT alk phos 503/ 376/ 133 a lactic acid was 2.1 patient tested negative for influenza a and B and COVID-[address] of abdomen and pelvis was reported as: IMPRESSION: Intra and extrahepatic bile duct dilation, without inflammatory changes or obstructing stone or mass, commonly attributed to the postcholecystectomy state, noting that early cholangitis could appear similar. Antral gastritis. chest x-ray was reported as: IMPRESSION: No acute cardiopulmonary process. Possible 1.4 cm pulmonary nodule, recommend nonemergent outpatient CT of the chest for further evaluation. patient received a dose of Zosyn in the emergency room it being admitted for further evaluation management and treatment. Review of Systems Review of Systems: ROS unobtainable: Yes unobtainable due to mental status ( Dementia) [facility] Family History Family History Mother Hypertension Cerebrovascular accident, Onset Age: 70 Family history of diabetes mellitus in first degree relative Father Patient's father is Social History Social History Smoking status: Former smoker Second hand tobacco smoke exposure: No Alcohol intake: never Substance use: never Substance use type: does not use Gender identity (if verbalized by the patient): Male Spiritual care concerns: No Meds Home Medications and Allergies Home Medications Medication Instructions Recorded Confirmed Type bimatoprost 0.01 % eye drops 1 drop ophthalmic (eye) DAILY 10/30/19 05/26/21 History (Lumigan) calcium carbonate 200 mg calcium 200 mg PO BID PRN Indigestion 10/30/19 05/26/21 History (500 mg) chewable tablet (Tums) vitamins A,C,Q-zdgt-ulyepm 14,320 1 cap PO BID 10/30/19 05/26/21 History unit-226 mg-200 unit capsule (ICaps AREDS) vitamin B12 0.5 mg-folic acid 1 mg 1 tablet PO DAILY #30 tabs 11/19/19 05/26/21 Rx tablet cholecalciferol (vitamin D3) 125 125 mcg PO DAILY 05/07/20 05/26/21 History mcg (5,000 unit) capsule glucosamine 500 1 cap PO DAILY 06/11/20 05/26/21 History ke-ppfncncua-oonbjdbk comp 400 mg-D3 667 unit-C-Mn cap lidocaine HCl 4 % topical cream 1 applic topical BID PRN Pain 06/11/20 05/26/21 History (Aspercreme (lidocaine HCl)) magnesium 250 mg tablet 500 mg PO DAILY 06/11/20 05/26/21 History naproxen sodium 220 mg tablet 220 mg PO BID PRN Pain 06/11/20 05/26/21 History (Flanax (naproxen)) triamcinolone acetonide 0.1 % 1 applic topical BID #80 grams 08/08/20 05/26/21 Rx topical cream levothyroxine 137 mcg tablet 137 mcg PO DAILY #90 tabs 02/19/21 05/26/21 Rx ascorbic acid (vitamin C) 500 mg 500 mg PO DAILY 02/23/21 05/26/21 History capsule omeprazole 20 mg capsule,delayed 20 mg PO DAILY #90 caps 02/23/21 05/26/21 Rx release zinc acetate 25 mg (zinc) capsule 25 mg PO DAILY 02/23/21 05/26/21 History (Wilzin) metoprolol tartrate 25 mg tablet 12.5 mg PO DAILY 05/26/21 05/26/21 History A
[2022-01-19 23:52] LABS: Appearance Urine Clear (Clear); Bilirubin Urine Negative (Negative); Blood Urine Trace-intact (Negative); Color Urine Yellow (Yellow); Glucose Urine UA Negative (Negative); Ketones Urine Negative (Negative); Leukocyte Esterase Ur Negative LEU/UL (Negative); Nitrate Urine Negative (Negative); Protein Urine Trace mg/dL (Negative); Urobilinogen Urine 0.2 mg/dL (<2.0); pH Urine 6.5 (5.0-9.0)
[2022-01-19 23:56] LABS: Bacteria Urine Trace /hpf; Mucus Urine Rare /lpf; WBC Urine 0-3 /hpf
[2022-01-19 23:57] LABS: Add Urine Microscopic? YES
[2022-01-20 00:38] LABS: Reflex Lactic Acid Yes or No Add Lactic
[2022-01-20 00:56] VITALS: BP 103/41; PULSE 70; RESP 17; O2SAT 97
[2022-01-20 01:10] VITALS: BP 105/50; PULSE 71; RESP 18; TEMP 36.4; O2SAT 98
[2022-01-20 03:32] VITALS: BMI 25.5
[2022-01-20] MEDS: SODIUM CHLORIDE 0.9% IV 1,000 ML 125 ML IV CONT (04:55)
[2022-01-20] MEDS: AMPICILLIN SULB 3 GM/NS 100 ML 3 GM/100 ML VIAL IVPB ×4 (04:56→21:18)
[2022-01-20 06:00] VITALS: BP 115/49; PULSE 63; RESP 18; TEMP 36.3; O2SAT 100
[2022-01-20 06:04] LABS: Basophils Percent Auto 0.1 % (0.2-1.2); Eosinophils Percent Auto 0.3 % (0-4.4); Hematocrit 33.6 % (42.0-52.0); Hemoglobin 10.8 g/dL (14.0-18.0); Immature Granulocyte Absolute 0.02 K/mm3 (0.00-0.031); Immature Granulocyte Percent A 0.3 % (0-0.5); Immature Platelet Fraction Pct 5.5 % (0.9-11.2); Lymphocytes Absolute Auto 0.79 K/mm3 (0.9-3.2); Mean Corpuscular HGB Conc 32.1 g/dl (32-36); Mean Corpuscular Hemoglobin 30.3 pg (26-34); Mean Corpuscular Volume 94.4 fl (80-100); Mean Platelet Volume 11.6 fl (7.4-10.4); Monocytes Absolute Auto 0.4 K/mm3 (0.1-0.6); Monocytes Percent Auto 4.9 % (2.6-8.5); Neutrophils Absolute Auto 6.7 K/mm3 (1.3-6.7); Neutrophils Percent Auto 84.4 % (45.5-73.1); Platelet Count Result 67 k/mm3 (150-375); Red Blood Count 3.56 M/mm3 (4.6-6.20); Red Cell Distribution Width 14.6 % (11.5-14.5); White Blood Count 7.9 K/mm3 (4.5-10.0)
[2022-01-20 06:32] LABS: Alanine Aminotransferase 317 U/L (6-50); Albumin Level 3.3 g/dL (3.5-5.1); Alkaline Phosphatase 112 U/L (38-126); Anion Gap 6 mmol/L (8-16); Aspartate Amino Transferase 322 U/L (17-59); Bilirubin,Total 1.1 mg/dL (0.2-1.3); Blood Urea Nitrogen 25 mg/dL (9-20); Calcium 8.1 mg/dL (8.4-10.2); Carbon Dioxide 27 mmol/L (22-30); Chloride 101 mmol/L (98-107); Estimated CRCL calculation 31 ml/min; Estimated Glomerular Filt Rate 44; Glucose 105 mg/dL (65-110); Potassium 4.1 mmol/L (3.4-5.0); Sodium 134 mmol/L (137-145)
[2022-01-20 07:37] LABS: Hepatitis B Surface Antigen Negative (Negative)
[2022-01-20 07:43] LABS: HAV RESULT Negative (Negative); Hepatitis B Core IgM Result Negative (Negative)
[2022-01-20 07:54] LABS: Hepatitis C Virus Antibody Negative (Negative)
--- NOTE | 2022-01-20 11:31 | PM.IMPN ---
Progress Note: A&P Assessment and Plan (1) Abdominal pain: Code(s): R10.9 - Unspecified abdominal pain Status: Acute Assessment and Plan: RUQ pain with assocaited fever, nausea, vomting. elevated transaminases, normal bilirubin and ALP. CT abdomen pelvis with intra and extrahepatic bile duct dilatation without inflammatory change or obstructing stone or mass. LFT improving. Right upper quadrant ultrasound with hepatomegaly with normal size CBD GI consulted awaiting the recommendation Will get MRCP to further evaluate elevated liver enzymes and biliary dilatation noted in CT scan. He is hesitant on doing any kind of procedure at this time. (2) Fever: Code(s): R50.9 - Fever, unspecified Status: Acute Assessment and Plan: blood cultures in progress received Zosyn in the emergency room Started on Unasyn supportive care patient with some findings on CT of abdomen and pelvis abnormal liver enzymes continue to monitor Negative for COVID and flu (3) Acute cholangitis: Code(s): K83.09 - Other cholangitis Status: Acute Assessment and Plan: receive Zosyn in the emergency room On Unasyn supportive care LFTs improving (4) Generalized weakness: Code(s): R53.1 - Weakness Status: Acute Assessment and Plan: likely secondary to acute illness patient uses a walker supportive care PT OT when clinically able (5) Paroxysmal atrial fibrillation: Onset Date: 06/15/17 Code(s): I48.0 - Paroxysmal atrial fibrillation Status: Acute Assessment and Plan: rate controlled (6) Abnormal LFTs: Code(s): R79.89 - Other specified abnormal findings of blood chemistry Status: Acute Assessment and Plan: Elevated liver enzyme on admission Continue to improved today Hepatitis panel negative Right upper quadrant ultrasound with hepatomegaly Plan CKD stage 3: Continue to monitor Mild hyponatremia Lactic acidosis 2.1 on admission improved with hydration Microscopic hematuria Subjective Date/time seen: 01/20/22 11:31 Interval history: HPI: ?This is an 86-year-old male he is a care home resident he was brought for evaluation to the emergency room by his brother after he had an episode of fever of 104? F, nausea, vomiting generalized weakness, patient had not been able to eat in the holding and was overall not feeling well for the last 2 days or so.? Patient is unable to give much history however complains of diffuse abdominal pain, patient is alert be circumstantial overall cannot really give a good history.? Most of the history has been obtained from brother who is in the emergency room at bedside according in to broader he used to live by himself in an apartment however patient became unable to take care of himself and moved to care home he has been there? and relatively doing well. preliminary workup was significant for CMP with AST ALT alk phos 503/ 376/ 133? a lactic acid was 2.1? patient tested negative for influenza a and B and COVID-[address] of abdomen and pelvis was reported as: IMPRESSION: Intra and extrahepatic bile duct dilation, without inflammatory changes or obstructing stone or mass, commonly attributed to the postcholecystectomy state, noting that early cholangitis could appear similar. Antral gastritis. ?chest x-ray was reported as: IMPRESSION: No acute cardiopulmonary process. Possible 1.4 cm pulmonary nodule, recommend nonemergent outpatient CT of the chest for further evaluation. ?patient received a dose of Zosyn in the emergency room it being admitted for further evaluation management and treatment. 01/20/2022: feeling a bit better today. more coherent. brother at bedside, discused findings with him. gi consultation pending. Review of Systems Review of Systems: All systems reviewed & are unremarkable except as noted in HPI and below Exam Narrative: GENERAL: The patient is well develop
[2022-01-20 12:02] LABS: Lipase 82 U/L (23-300)
--- NOTE | 2022-01-20 13:35 | WPDGICN ---
Assessment and Plan Assessment and plan (1) Abnormal LFTs: Code(s): R79.89 - Other specified abnormal findings of blood chemistry Status: Acute Assessment and Plan: Elevated serum transaminases noted on presenting lab work. This is suggestive of underlying hepatitis. Viral hepatitis serologies obtained were initially negative. Perhaps elevated LFTs may be related fever and infection. Cholangitis is been suggested but cannot be confirmed at this time. Agree with broad-spectrum antibiotics and following LFTs. MRCP would be preferable if it can be performed however with his previous right hip surgery I am uncertain if this can be accomplished. Because of his elderly state I would not pursue ERCP at this time. Continue to monitor transaminases conservatively. (2) Abdominal pain: Code(s): R10.9 - Unspecified abdominal pain Status: Acute Assessment and Plan: Abdominal pain described on admission is not present today. Etiology remains unclear. Perhaps related to hepatitis. (3) Fever: Code(s): R50.9 - Fever, unspecified Status: Acute Assessment and Plan: Fever suspicious for infectious process perhaps related to hepatitis at this point. Will continue to monitor LFTs. Complete course of antibiotics suggested. Clinically patient is improving will advance diet. GI Consult Note Consult date/time: 01/20/22 13:35 Reason for consult: elevated LFTs. HPI: Sebastián Andersen is a 86 year old male Pt in usual state of health till several days ago when he developed a fever. Patient present emergency room was found to have elevated serum transaminases. Patient has a history of cholecystectomy many years ago. He has a history of a right hip replacement. Many years ago. Patient denies any specific abdominal pain however he did have diffuse abdominal discomfort at the time of presentation. After admission the hospital started on broad-spectrum antibiotics and he feels much improved today. Patient denies any jaundice. His abdominal pain has resolved. He has no known exposure to hepatitis. No recent blood transfusions no recent travel. Review of Systems Review of Systems: Review of systems noncontributory. [facility] Family History Family History Mother Hypertension Cerebrovascular accident, Onset Age: 70 Family history of diabetes mellitus in first degree relative Father Patient's father is Social History Social History Smoking status: Former smoker Second hand tobacco smoke exposure: No Alcohol intake: never Substance use: never Substance use type: does not use Gender identity (if verbalized by the patient): Male Spiritual care concerns: No Meds Home Medications and Allergies Home Medications Medication Instructions Recorded Confirmed Type bimatoprost 0.01 % eye drops 1 drop ophthalmic (eye) DAILY 10/30/19 01/20/22 History (Lumigan) calcium carbonate 200 mg calcium 200 mg PO BID PRN Indigestion 10/30/19 01/20/22 History (500 mg) chewable tablet (Tums) vitamins A,C,J-nkfj-tmpvoq 14,320 1 cap PO BID 10/30/19 01/20/22 History unit-226 mg-200 unit capsule (ICaps AREDS) vitamin B12 0.5 mg-folic acid 1 mg 1 tablet PO DAILY #30 tabs 11/19/19 01/20/22 Rx tablet cholecalciferol (vitamin D3) 125 125 mcg PO DAILY 05/07/20 01/20/22 History mcg (5,000 unit) capsule glucosamine 500 1 cap PO DAILY 06/11/20 01/20/22 History el-wilcgspki-vpsubqmg comp 400 mg-D3 667 unit-C-Mn cap lidocaine HCl 4 % topical cream 1 applic topical BID PRN Pain 06/11/20 01/20/22 History (Aspercreme (lidocaine HCl)) magnesium 250 mg tablet 500 mg PO DAILY 06/11/20 01/20/22 History naproxen sodium 220 mg tablet 220 mg PO BID PRN Pain 06/11/20 01/20/22 History (Flanax (naproxen)) triamcinolone acetonide 0.1 % 1 appl
[2022-01-20 14:00] VITALS: BP 135/61; PULSE 68; RESP 16; TEMP 37.2; O2SAT 99
--- NOTE | 2022-01-20 14:10 | PCPTNOTE ---
Attempted to see patient, but nursing putting in an IV line. Will check on later.
[2022-01-20] MEDS: OPTI-GEN TAB 1 TABLET PO (17:17)
[2022-01-20 19:50] VITALS: PULSE 76; RESP 12; O2SAT 98
[2022-01-20] MEDS: SODIUM CHLORIDE 0.9% IV 1,000 ML 75 ML IV CONT (21:14)
[2022-01-20] MEDS: TRIAMCINOLONE ACET 0.1% CREAM 15 GM TUBE 1 APPLIC TOPICAL (21:16)
[2022-01-20] MEDS: LATANOPROST 0.005% OP SOLN 2.5 ML BTL 1 DROP EACH EYE (21:16)
[2022-01-20 21:34] VITALS: BP 135/54; PULSE 76; RESP 12; TEMP 37.2; O2SAT 98
[2022-01-20] MEDS: NAPROXEN SODIUM 220 MG TABLET PO (23:58)
[2022-01-21] MEDS: AMPICILLIN SULB 3 GM/NS 100 ML 3 GM/100 ML VIAL IVPB ×4 (03:58→21:37)
[2022-01-21 05:56] LABS: Eosinophils Absolute Auto 0.1 K/mm3 (0-0.3); Eosinophils Percent Auto 1.9 % (0-4.4); Hematocrit 32.6 % (42.0-52.0); Hemoglobin 10.6 g/dL (14.0-18.0); Immature Granulocyte Absolute 0.01 K/mm3 (0.00-0.031); Immature Granulocyte Percent A 0.2 % (0-0.5); Immature Platelet Fraction Pct 5.4 % (0.9-11.2); Lymphocytes Absolute Auto 0.78 K/mm3 (0.9-3.2); Lymphocytes Percent Auto 18.3 % (18.3-44.2); Mean Corpuscular HGB Conc 32.5 g/dl (32-36); Mean Corpuscular Hemoglobin 29.9 pg (26-34); Mean Corpuscular Volume 91.8 fl (80-100); Mean Platelet Volume 11.2 fl (7.4-10.4); Monocytes Absolute Auto 0.4 K/mm3 (0.1-0.6); Monocytes Percent Auto 9.2 % (2.6-8.5); Neutrophils Percent Auto 70.4 % (45.5-73.1); Platelet Count Result 54 k/mm3 (150-375); Red Blood Count 3.55 M/mm3 (4.6-6.20); Red Cell Distribution Width 14.6 % (11.5-14.5); White Blood Count 4.3 K/mm3 (4.5-10.0)
[2022-01-21 06:00] VITALS: BP 146/55; PULSE 66; RESP 16; TEMP 36.5; O2SAT 98
[2022-01-21] MEDS: LEVOTHYROXINE SODIUM 112 MCG, LEVOTHYROXINE SODIUM 25 MCG 137 MCG PO (06:23)
[2022-01-21 06:24] LABS: Alanine Aminotransferase 214 U/L (6-50); Albumin Level 3.2 g/dL (3.5-5.1); Alkaline Phosphatase 102 U/L (38-126); Anion Gap 8 mmol/L (8-16); Aspartate Amino Transferase 143 U/L (17-59); Bilirubin,Total 0.7 mg/dL (0.2-1.3); Blood Urea Nitrogen 15 mg/dL (9-20); Carbon Dioxide 23 mmol/L (22-30); Chloride 102 mmol/L (98-107); Estimated CRCL calculation 38 ml/min; Estimated Glomerular Filt Rate 57; Glucose 91 mg/dL (65-110); Potassium 4.1 mmol/L (3.4-5.0); Sodium 133 mmol/L (137-145)
[2022-01-21] MEDS: NAPROXEN SODIUM 220 MG TABLET PO ×2 (06:27→18:00)
--- NOTE | 2022-01-21 07:35 | WPDGIPROGNO ---
Progress Note: A&P Assessment and Plan (1) Choledocholithiasis: Code(s): K80.50 - Calculus of bile duct without cholangitis or cholecystitis without obstruction Status: Acute Assessment and Plan: MRCP suggests common bile duct gallstone despite previous cholecystectomy. Likely this is etiology for elevated LFTs, fever and pain. Cholangitis is suspected. Now improving with broad-spectrum antibiotics. Plan for ERCP and attempt to clear the common bile duct. Hopefully this can be arranged today. (2) Abnormal LFTs: Code(s): R79.89 - Other specified abnormal findings of blood chemistry Status: Acute Assessment and Plan: Elevated LFTs. Likely related to cholangitis and common bile duct gallstone. Plan for ERCP today. Continue to monitor LFTs to resolution. (3) Acute cholangitis: Code(s): K83.09 - Other cholangitis Status: Acute Assessment and Plan: Continue broad-spectrum antibiotic coverage. For complete course. Subjective Date/time seen: 01/21/22 07:35 Patient remains comfortable today. Denies significant abdominal pain at present. Fever has resolved. MRCP suggests common bile duct gallstone. Review of Systems Review of Systems: Review of systems noncontributory. Exam Narrative: Physical exam reveals patient be alert. Comfortable at rest. Vital signs stable. HEENT exam reveals no icterus. Lungs are clear. Heart without murmur. Abdomen bowel sounds present soft nontender with no organomegaly. Objective Data Vital Signs Vital Signs: Vital Signs - 24 hr 01/20/22 08:20 01/20/22 14:00 01/20/22 21:34 Temperature 98.9 F 99 F Pulse Rate 68 76 Respiratory Rate 16 12 Blood Pressure 135/61 135/54 L Pulse Oximetry 99 98 Oxygen Delivery Room Air 01/20/22 19:50 01/21/22 06:00 Temperature 97.7 F Pulse Rate 76 66 Respiratory Rate 12 16 Blood Pressure 146/55 H Pulse Oximetry 98 98 Oxygen Delivery Room Air Intake/Output Intake/Output: Intake & Output 01/18/22 01/19/22 01/20/22 01/21/22 23:59 23:59 23:59 23:59 Intake Total 100 1830 0 Balance 100 1830 0 Meds/Results Medications: Active Medications Generic Name Dose Route Start Last Admin Trade Name Freq PRN Reason Stop Dose Admin Ascorbic Acid 500 mg 01/21/22 09:00 Ascorbic Acid 500 Mg Tablet PO DAILY [facility] Calcium Carbonate 200 mg 01/20/22 11:39 Calcium Carbonate (Tums) 500 Mg (200 Mg Elemental) PO BID PRN Indigestion Cyanocobalamin 500 mcg 01/21/22 09:00 Cyanocobalamin 500 Mcg Tablet PO QAM [facility] Folic Acid 1 mg 01/21/22 09:00 Folic Acid 1 Mg Tablet PO QAM [facility] Sodium Chloride 1,000 mls @ 75 mls/hr 01/19/22 23:15 01/20/22 21:14 Normal Saline Iv IV CONT 75 mls/hr .[id number] [place] Administration Ampicillin Sodium/Sulbactam Sodium 3 gm in 100 mls @ 200 mls/hr 01/20/22 04:00 01/21/22 03:58 Unasyn 3 Gm/Ns 100 Ml IVPB 200 mls/hr Q6H [place] Administration Latanoprost 1 drop 01/20/22 21:00 01/20/22 21:16 Latanoprost 0.005% Op Soln 2.5 Ml Btl EACH EYE 1 drop HS [facility] Administration Levothyroxine Sodium 112 mcg/ 137 mcg 01/21/22 06:30 01/21/22 06:23 Levothyroxine Sodium 25 mcg PO 137 mcg DAILY@0630 [facility] Administration Magnesium Oxide 400 mg 01/21/22 09:00 Magnesium Oxide 400 Mg Tablet PO 02/20/22 08:59 DAILY [facility] Metoprolol Tartrate 12.5 mg 01/21/22 09:00 Metoprolol Tartrate 12.5 Mg Tablet PO DAILY [facility] Miconazole Nitrate 1 applic 01/20/22 10:00 01/20/22 21:17 Miconazole 2% Antifungal Ointment 56 Gm TOPICAL 1 applic Q12HR [facility] Administration Multivitamins/Minerals 1 tablet 01/20/22 17:00 01/20/22 17:17 Opti-Gen Tab PO 1 tablet BID [facility] Administration Naproxen 220 mg 01/20/22 11:39 01/21/22 06:27 Naproxen Sodium 220 Mg Tablet PO 220 mg BID PRN Administration Pain Ondansetron HCl 4 mg 01/19/22 23:15 Ondansetron Inj 4
[2022-01-21] MEDS: TRIAMCINOLONE ACET 0.1% CREAM 15 GM TUBE 1 APPLIC TOPICAL ×2 (08:44→17:49)
--- NOTE | 2022-01-21 10:55 | PC.NURSE ---
To GI LAB via [facility].
[2022-01-21 11:12] VITALS: BP 172/58; PULSE 65; RESP 20; TEMP 36.5; O2SAT 100
[2022-01-21] MEDS: LACTATED RINGERS 1,000 ML 150 ML IV CONT (11:15)
--- NOTE | 2022-01-21 11:54 | PM.IMPN ---
Progress Note: A&P Assessment and Plan (1) Abdominal pain: Code(s): R10.9 - Unspecified abdominal pain Status: Acute Assessment and Plan: RUQ pain with assocaited fever, nausea, vomting. elevated transaminases, normal bilirubin and ALP. CT abdomen pelvis with intra and extrahepatic bile duct dilatation without inflammatory change or obstructing stone or mass. LFT improving. Right upper quadrant ultrasound with hepatomegaly with normal size CBD GI consulted MRCP done does reveal choledocholithiasis. Consented for ERCP at this time (2) Fever: Code(s): R50.9 - Fever, unspecified Status: Acute Assessment and Plan: blood cultures in progress received Zosyn in the emergency room Started on Unasyn supportive care patient with some findings on CT of abdomen and pelvis abnormal liver enzymes continue to monitor Negative for COVID and flu (3) Acute cholangitis: Code(s): K83.09 - Other cholangitis Status: Acute Assessment and Plan: receive Zosyn in the emergency room On Unasyn supportive care LFTs improving (4) Generalized weakness: Code(s): R53.1 - Weakness Status: Acute Assessment and Plan: likely secondary to acute illness patient uses a walker supportive care PT OT when clinically able (5) Paroxysmal atrial fibrillation: Onset Date: 06/15/17 Code(s): I48.0 - Paroxysmal atrial fibrillation Status: Acute Assessment and Plan: rate controlled (6) Abnormal LFTs: Code(s): R79.89 - Other specified abnormal findings of blood chemistry Status: Acute Assessment and Plan: Elevated liver enzyme on admission Continue to improved today Hepatitis panel negative Right upper quadrant ultrasound with hepatomegaly (7) Bacteremia: Code(s): R78.81 - Bacteremia Status: Acute Assessment and Plan: on unasyn, GNB in 2/2 Plan CKD stage 3: Continue to monitor Mild hyponatremia Lactic acidosis 2.1 on admission improved with hydration Microscopic hematuria Subjective Date/time seen: 01/21/22 11:54 Interval history: HPI: ?This is an 86-year-old male he is a [facility] resident he was brought for evaluation to the emergency room by his brother after he had an episode of fever of 104? F, nausea, vomiting generalized weakness, patient had not been able to eat in the holding and was overall not feeling well for the last 2 days or so.? Patient is unable to give much history however complains of diffuse abdominal pain, patient is alert be circumstantial overall cannot really give a good history.? Most of the history has been obtained from brother who is in the emergency room at bedside according in to broader he used to live by himself in an apartment however patient became unable to take care of himself and moved to [facility] he has been there? and relatively doing well. preliminary workup was significant for CMP with AST ALT alk phos 503/ 376/ 133? a lactic acid was 2.1? patient tested negative for influenza a and B and COVID-[address] of abdomen and pelvis was reported as: IMPRESSION: Intra and extrahepatic bile duct dilation, without inflammatory changes or obstructing stone or mass, commonly attributed to the postcholecystectomy state, noting that early cholangitis could appear similar. Antral gastritis. ?chest x-ray was reported as: IMPRESSION: No acute cardiopulmonary process. Possible 1.4 cm pulmonary nodule, recommend nonemergent outpatient CT of the chest for further evaluation. ?patient received a dose of Zosyn in the emergency room it being admitted for further evaluation management and treatment. 01/20/2022: feeling a bit better today. more coherent. brother at bedside, discused findings with him. gi consultation pending. 01/21/2022 feels well no overnight events remains afebrile. Going for ERCP this afternoon. Review of Systems Review of Systems: All systems review
--- NOTE | 2022-01-21 11:56 | WPDANESEPPF ---
Anes - Initial Pre Proc Eval Procedure: Operation Date: 01/21/22 13:30 Proposed Procedures p Endoscopic Retro Cholangiopancreatogram - Jakob Giles MD Date/Time: 01/21/22 11:56 Surgeon: Jose Guerra MD Pre Op Diagnosis: Abdominal Pain,Fever,Cholangitis Patient Data Age: 86 Gender: M Height: 1.73 m Weight: 76.3 kg Last Vital Signs Temp 97.7 F 01/21/22 11:12 Pulse 65 01/21/22 11:12 Resp 20 01/21/22 11:12 BP 172/58 H 01/21/22 11:12 Pulse Ox 100 01/21/22 11:12 O2 Del Method Room Air 01/21/22 11:12 Allergies Allergy/AdvReac Type Severity Reaction Status Date / Time Sulfa (Sulfonamide Allergy Unknown rash Verified 01/20/22 05:01 Antibiotics) Home Medications Medication Instructions Recorded Confirmed Type bimatoprost 0.01 % eye drops 1 drop ophthalmic (eye) DAILY 10/30/19 01/20/22 History (Lumigan) calcium carbonate 200 mg calcium 200 mg PO BID PRN Indigestion 10/30/19 01/20/22 History (500 mg) chewable tablet (Tums) vitamins A,C,X-nvns-vsqtjw 14,320 1 cap PO BID 10/30/19 01/20/22 History unit-226 mg-200 unit capsule (ICaps AREDS) vitamin B12 0.5 mg-folic acid 1 mg 1 tablet PO DAILY #30 tabs 11/19/19 01/20/22 Rx tablet cholecalciferol (vitamin D3) 125 125 mcg PO DAILY 05/07/20 01/20/22 History mcg (5,000 unit) capsule glucosamine 500 1 cap PO DAILY 06/11/20 01/20/22 History ln-htwzycyqr-vxjwopth comp 400 mg-D3 667 unit-C-Mn cap lidocaine HCl 4 % topical cream 1 applic topical BID PRN Pain 06/11/20 01/20/22 History (Aspercreme (lidocaine HCl)) magnesium 250 mg tablet 500 mg PO DAILY 06/11/20 01/20/22 History naproxen sodium 220 mg tablet 220 mg PO BID PRN Pain 06/11/20 01/20/22 History (Flanax (naproxen)) triamcinolone acetonide 0.1 % 1 applic topical BID #80 grams 08/08/20 01/20/22 Rx topical cream levothyroxine 137 mcg tablet 137 mcg PO DAILY #90 tabs 02/19/21 01/20/22 Rx ascorbic acid (vitamin C) 500 mg 500 mg PO DAILY 02/23/21 01/20/22 History capsule omeprazole 20 mg capsule,delayed 20 mg PO DAILY #90 caps 02/23/21 01/20/22 Rx release zinc acetate 25 mg (zinc) capsule 25 mg PO DAILY 02/23/21 01/20/22 History (Wilzin) metoprolol tartrate 25 mg tablet 12.5 mg PO DAILY 05/26/21 01/20/22 History Laboratory Tests 01/20/22 01/21/22 01/21/22 05:25 05:17 05:17 WBC 4.3 K/mm3 L K/mm3 (4.5-10.0) RBC 3.55 M/mm3 L M/mm3 (4.6-6.20) Hgb 10.6 g/dL L g/dL (14.0-18.0) Hct 32.6 % L % (42.0-52.0) MCV 91.8 fl fl (80-100) MCH 29.9 pg pg (26-34) MCHC 32.5 g/dl g/dl (32-36) RDW 14.6 % H % (11.5-14.5) Plt Count 54 k/mm3 L k/mm3 (150-375) MPV 11.2 fl H fl (7.4-10.4) Immature Gran % (Auto) 0.2 % % (0-0.5) Neut % (Auto) 70.4 % % (45.5-73.1) Lymph % (Auto) 18.3 % % (18.3-44.2) [place] % (Auto) 9.2 % H % (2.6-8.5) Eos % (Auto) 1.9 % % (0-4.4) Baso % (Auto) 0.0 % L % (0.2-1.2) Lymph # (Auto) 0.78 K/mm3 L K/mm3 (0.9-3.2) [place] # (Auto) 0.4 K/mm3 K/mm3 (0.1-0.6) Eos # (Auto) 0.1 K/mm3 K/mm3 (0-0.3) Baso # (Auto) 0.0 K/mm3 K/mm3 (0.0-0.1) Abs Immat Gran (auto) 0.01 K/mm3 K/mm3 (0.00-0.031) Absolute Neuts (auto) 3.0 K/mm3 K/mm3 (1.3-6.7) Absolute Nucleated RBC 0.0 K/mm3 K/mm3 (0.0-0.012) Nucleated RBC % 0.0 % % (0.0-0.2) % Immature Plt Fraction 5.4 % % (0.9-11.2) Sodium 133 mmol/L L mmol/L (137-145) Potassium 4.1 mmol/L mmol/L (3.4-5.0) Chloride 102 mmol/L mmol/L (98-107) Carbon Dioxide 23 mmol/L mmol/L (22-30) Anion Gap 8 mmol/L mmol/L (8-16) BUN 15 mg/dL D mg/dL (9-20) Creatinine 1.20 mg/dL mg/dL (0.7-1.3) Estim Creat Clear Calc 38 ml/min ml/min Estimat
--- NOTE | 2022-01-21 13:25 | SUR.PREOP ---
Dr Villanueva, Dr Giles and Dr Ly spoke and decided to postpone the ERCP because of the patients platelet levels.
[2022-01-21 13:26] VITALS: BP 168/61; PULSE 69; RESP 20; TEMP 36.4; O2SAT 99
[2022-01-21] MEDS: SODIUM CHLORIDE 0.9% IV 1,000 ML 75 ML IV CONT (15:00)
[2022-01-21] MEDS: CYANOCOBALAMIN 500 MCG TABLET PO (15:10)
[2022-01-21] MEDS: FOLIC ACID 1 MG TABLET PO (15:10)
[2022-01-21] MEDS: ASCORBIC ACID 500 MG TABLET PO (15:10)
[2022-01-21] MEDS: CHOLECALCIFEROL 1,000 UNITS TABLET 5000 UNITS PO (15:10)
[2022-01-21 15:11] VITALS: PULSE 72
[2022-01-21] MEDS: ZINC SULFATE 220 MG CAPSULE PO (15:11)
[2022-01-21] MEDS: METOPROLOL TARTRATE 12.5 MG TABLET PO (15:11)
[2022-01-21] MEDS: MAGNESIUM OXIDE 400 MG TABLET PO (15:11)
[2022-01-21] MEDS: PANTOPRAZOLE 40 MG TABLET PO (15:12)
[2022-01-21] MEDS: OPTI-GEN TAB 1 TABLET PO (15:12)
[2022-01-21] MEDS: LATANOPROST 0.005% OP SOLN 2.5 ML BTL 1 DROP EACH EYE (20:26)
[2022-01-21 22:46] VITALS: BP 150/65; PULSE 65; RESP 20; TEMP 36.4; O2SAT 98
[2022-01-22] VITALS (16 sets, daily range): BP systolic 118–185; BP diastolic 49–67; PULSE 55–86; RESP 18–20; TEMP 36–39.5; O2SAT 93–100
[2022-01-22] MEDS: SODIUM CHLORIDE 0.9% IV 1,000 ML 75 ML IV CONT ×2 (04:52→16:54)
[2022-01-22] MEDS: AMPICILLIN SULB 3 GM/NS 100 ML 3 GM/100 ML VIAL IVPB ×4 (04:53→23:04)
[2022-01-22 06:07] LABS: Eosinophils Absolute Auto 0.1 K/mm3 (0-0.3); Eosinophils Percent Auto 2.5 % (0-4.4); Hematocrit 33.5 % (42.0-52.0); Hemoglobin 10.8 g/dL (14.0-18.0); Immature Granulocyte Absolute 0.01 K/mm3 (0.00-0.031); Immature Granulocyte Percent A 0.3 % (0-0.5); Immature Platelet Fraction Pct 5.2 % (0.9-11.2); Lymphocytes Absolute Auto 0.52 K/mm3 (0.9-3.2); Lymphocytes Percent Auto 16.3 % (18.3-44.2); Mean Corpuscular HGB Conc 32.2 g/dl (32-36); Mean Corpuscular Hemoglobin 30.3 pg (26-34); Mean Corpuscular Volume 93.8 fl (80-100); Mean Platelet Volume 11.7 fl (7.4-10.4); Monocytes Absolute Auto 0.4 K/mm3 (0.1-0.6); Monocytes Percent Auto 12.2 % (2.6-8.5); Neutrophils Absolute Auto 2.2 K/mm3 (1.3-6.7); Neutrophils Percent Auto 68.7 % (45.5-73.1); Platelet Count Result 61 k/mm3 (150-375); Red Blood Count 3.57 M/mm3 (4.6-6.20); Red Cell Distribution Width 14.4 % (11.5-14.5); White Blood Count 3.2 K/mm3 (4.5-10.0)
[2022-01-22 06:21] LABS: Alanine Aminotransferase 145 U/L (6-50); Albumin Level 3.2 g/dL (3.5-5.1); Alkaline Phosphatase 95 U/L (38-126); Anion Gap 10 mmol/L (8-16); Aspartate Amino Transferase 70 U/L (17-59); Bilirubin,Total 0.5 mg/dL (0.2-1.3); Blood Urea Nitrogen 13 mg/dL (9-20); Calcium 8.3 mg/dL (8.4-10.2); Carbon Dioxide 26 mmol/L (22-30); Chloride 103 mmol/L (98-107); Estimated CRCL calculation 38 ml/min; Estimated Glomerular Filt Rate 57; Glucose 91 mg/dL (65-110); Magnesium 1.9 mg/dL (1.6-2.3); Potassium 4.1 mmol/L (3.4-5.0); Sodium 139 mmol/L (137-145)
[2022-01-22] MEDS: METOPROLOL TARTRATE 12.5 MG TABLET PO (09:07)
[2022-01-22] MEDS: CHOLECALCIFEROL 1,000 UNITS TABLET 5000 UNITS PO (09:07)
[2022-01-22] MEDS: FOLIC ACID 1 MG TABLET PO (09:09)
[2022-01-22] MEDS: OPTI-GEN TAB 1 TABLET PO ×2 (09:09→17:26)
[2022-01-22] MEDS: ZINC SULFATE 220 MG CAPSULE PO (09:09)
[2022-01-22] MEDS: ASCORBIC ACID 500 MG TABLET PO (09:09)
[2022-01-22] MEDS: PANTOPRAZOLE 40 MG TABLET PO (09:09)
[2022-01-22] MEDS: CYANOCOBALAMIN 500 MCG TABLET PO (09:09)
[2022-01-22] MEDS: TRIAMCINOLONE ACET 0.1% CREAM 15 GM TUBE 1 APPLIC TOPICAL ×2 (09:10→17:26)
[2022-01-22] MEDS: MAGNESIUM OXIDE 400 MG TABLET PO (09:10)
[2022-01-22] MEDS: TUBING, BLOOD PLUM PUMP TUBING 1 EACH XX (11:30)
--- NOTE | 2022-01-22 11:42 | PM.IMPN ---
Progress Note: A&P Assessment and Plan (1) Abdominal pain: Code(s): R10.9 - Unspecified abdominal pain Status: Acute Assessment and Plan: RUQ pain with assocaited fever, nausea, vomting. elevated transaminases, normal bilirubin and ALP. CT abdomen pelvis with intra and extrahepatic bile duct dilatation without inflammatory change or obstructing stone or mass. LFT improving. Right upper quadrant ultrasound with hepatomegaly with normal size CBD GI consulted MRCP done does reveal choledocholithiasis. Consented for ERCP at this time ERCP post platelet transfusion today planned (2) Fever: Code(s): R50.9 - Fever, unspecified Status: Acute Assessment and Plan: blood cultures in progress received Zosyn in the emergency room Started on Unasyn supportive care patient with some findings on CT of abdomen and pelvis abnormal liver enzymes continue to monitor Negative for COVID and flu (3) Acute cholangitis: Code(s): K83.09 - Other cholangitis Status: Acute Assessment and Plan: receive Zosyn in the emergency room On Unasyn supportive care LFTs improving (4) Generalized weakness: Code(s): R53.1 - Weakness Status: Acute Assessment and Plan: likely secondary to acute illness patient uses a walker supportive care PT OT when clinically able (5) Paroxysmal atrial fibrillation: Onset Date: 06/15/17 Code(s): I48.0 - Paroxysmal atrial fibrillation Status: Acute Assessment and Plan: rate controlled (6) Abnormal LFTs: Code(s): R79.89 - Other specified abnormal findings of blood chemistry Status: Acute Assessment and Plan: Elevated liver enzyme on admission Continue to improved today Hepatitis panel negative Right upper quadrant ultrasound with hepatomegaly (7) Bacteremia: Code(s): R78.81 - Bacteremia Status: Acute Assessment and Plan: on unasyn, GNB in 2/2 came back as E coli. Change Unasyn to ceftriaxone ampicillin is intermediate Resistant to Levaquin and will need to plan ceftriaxone IV at discharge Plan CKD stage 3: Continue to monitor Mild hyponatremia Lactic acidosis 2.1 on admission improved with hydration Microscopic hematuria thrombocytopenia: Acute on chronic likely related to sepsis. Stable. Platelet transfusion prior to planned ERCP Subjective Date/time seen: 01/22/22 11:42 Interval history: HPI: ?This is an 86-year-old male he is a [facility] resident he was brought for evaluation to the emergency room by his brother after he had an episode of fever of 104? F, nausea, vomiting generalized weakness, patient had not been able to eat in the holding and was overall not feeling well for the last 2 days or so.? Patient is unable to give much history however complains of diffuse abdominal pain, patient is alert be circumstantial overall cannot really give a good history.? Most of the history has been obtained from brother who is in the emergency room at bedside according in to broader he used to live by himself in an apartment however patient became unable to take care of himself and moved to [facility] he has been there? and relatively doing well. preliminary workup was significant for CMP with AST ALT alk phos 503/ 376/ 133? a lactic acid was 2.1? patient tested negative for influenza a and B and COVID-[address] of abdomen and pelvis was reported as: IMPRESSION: Intra and extrahepatic bile duct dilation, without inflammatory changes or obstructing stone or mass, commonly attributed to the postcholecystectomy state, noting that early cholangitis could appear similar. Antral gastritis. ?chest x-ray was reported as: IMPRESSION: No acute cardiopulmonary process. Possible 1.4 cm pulmonary nodule, recommend nonemergent outpatient CT of the chest for further evaluation. ?patient received a dose of Zosyn in the emergency room it being admitted for further evaluatio
--- NOTE | 2022-01-22 13:00 | PC.NURSE ---
pt transferred to GI lab with second unit of platelets running. GI nurse agreed to complete platelets/TAR in the GI lab.
[2022-01-22] MEDS: LACTATED RINGERS 1,000 ML 150 ML IV CONT (13:05)
--- NOTE | 2022-01-22 13:05 | WPDANESEPPF ---
Anes - Initial Pre Proc Eval Procedure: Operation Date: 01/21/22 13:30 Proposed Procedures p Endoscopic Retro Cholangiopancreatogram - Jakob Giles MD Operation Date: 01/22/22 13:30 Proposed Procedures p Endoscopic Retro Cholangiopancreatogram - Jakob Giles MD Date/Time: 01/22/22 13:05 Surgeon: Jose Guerra MD Pre Op Diagnosis: Abdominal Pain,Fever,Cholangitis Patient Data Age: 86 Gender: M Height: 1.73 m Weight: 76.3 kg Last Vital Signs Temp 98.0 F 01/22/22 13:03 Pulse 71 01/22/22 13:03 Resp 20 01/22/22 13:03 BP 173/67 H 01/22/22 13:03 Pulse Ox 100 01/22/22 13:03 O2 Del Method Room Air 01/22/22 13:03 Allergies Allergy/AdvReac Type Severity Reaction Status Date / Time Sulfa (Sulfonamide Allergy Unknown rash Verified 01/22/22 13:00 Antibiotics) Home Medications Medication Instructions Recorded Confirmed Type bimatoprost 0.01 % eye drops 1 drop ophthalmic (eye) DAILY 10/30/19 01/20/22 History (Lumigan) calcium carbonate 200 mg calcium 200 mg PO BID PRN Indigestion 10/30/19 01/20/22 History (500 mg) chewable tablet (Tums) vitamins A,C,O-hfma-qqcdkz 14,320 1 cap PO BID 10/30/19 01/20/22 History unit-226 mg-200 unit capsule (ICaps AREDS) vitamin B12 0.5 mg-folic acid 1 mg 1 tablet PO DAILY #30 tabs 11/19/19 01/20/22 Rx tablet cholecalciferol (vitamin D3) 125 125 mcg PO DAILY 05/07/20 01/20/22 History mcg (5,000 unit) capsule glucosamine 500 1 cap PO DAILY 06/11/20 01/20/22 History yx-nmpbvlvpb-yikdggma comp 400 mg-D3 667 unit-C-Mn cap lidocaine HCl 4 % topical cream 1 applic topical BID PRN Pain 06/11/20 01/20/22 History (Aspercreme (lidocaine HCl)) magnesium 250 mg tablet 500 mg PO DAILY 06/11/20 01/20/22 History naproxen sodium 220 mg tablet 220 mg PO BID PRN Pain 06/11/20 01/20/22 History (Flanax (naproxen)) triamcinolone acetonide 0.1 % 1 applic topical BID #80 grams 08/08/20 01/20/22 Rx topical cream levothyroxine 137 mcg tablet 137 mcg PO DAILY #90 tabs 02/19/21 01/20/22 Rx ascorbic acid (vitamin C) 500 mg 500 mg PO DAILY 02/23/21 01/20/22 History capsule omeprazole 20 mg capsule,delayed 20 mg PO DAILY #90 caps 02/23/21 01/20/22 Rx release zinc acetate 25 mg (zinc) capsule 25 mg PO DAILY 02/23/21 01/20/22 History (Wilzin) metoprolol tartrate 25 mg tablet 12.5 mg PO DAILY 05/26/21 01/20/22 History Laboratory Tests 01/22/22 01/22/22 01/22/22 05:42 05:42 09:43 WBC 3.2 K/mm3 L K/mm3 (4.5-10.0) RBC 3.57 M/mm3 L M/mm3 (4.6-6.20) Hgb 10.8 g/dL L g/dL (14.0-18.0) Hct 33.5 % L % (42.0-52.0) MCV 93.8 fl fl (80-100) MCH 30.3 pg pg (26-34) MCHC 32.2 g/dl g/dl (32-36) RDW 14.4 % % (11.5-14.5) Plt Count 61 k/mm3 L k/mm3 (150-375) MPV 11.7 fl H fl (7.4-10.4) Immature Gran % (Auto) 0.3 % % (0-0.5) Neut % (Auto) 68.7 % % (45.5-73.1) Lymph % (Auto) 16.3 % L % (18.3-44.2) [place] % (Auto) 12.2 % H % (2.6-8.5) Eos % (Auto) 2.5 % % (0-4.4) Baso % (Auto) 0.0 % L % (0.2-1.2) Lymph # (Auto) 0.52 K/mm3 L K/mm3 (0.9-3.2) [place] # (Auto) 0.4 K/mm3 K/mm3 (0.1-0.6) Eos # (Auto) 0.1 K/mm3 K/mm3 (0-0.3) Baso # (Auto) 0.0 K/mm3 K/mm3 (0.0-0.1) Abs Immat Gran (auto) 0.01 K/mm3 K/mm3 (0.00-0.031) Absolute Neuts (auto) 2.2 K/mm3 K/mm3 (1.3-6.7) Absolute Nucleated RBC 0.0 K/mm3 K/mm3 (0.0-0.012) Nucleated RBC % 0.0 % % (0.0-0.2) % Immature Plt Fraction 5.2 % % (0.9-11.2) Sodium 139 mmol/L mmol/L (137-145) Potassium 4.1 mmol/L mmol/L (3.4-5.0) Chloride 103 mmol/L mmol/L (98-107) Carbon Dioxide 26 mmol/L mmol/L (22-30) Anion Gap 10 mmol/L mmol/L (8-16) BUN 13 mg/dL mg/dL (9-2
[2022-01-22 16:54] LABS: Hematocrit 32.9 % (42.0-52.0); Hemoglobin 10.8 g/dL (14.0-18.0); Mean Corpuscular HGB Conc 32.8 g/dl (32-36); Mean Corpuscular Hemoglobin 30.1 pg (26-34); Mean Corpuscular Volume 91.6 fl (80-100); Mean Platelet Volume 9.2 fl (7.4-10.4); Platelet Count Result 99 k/mm3 (150-375); Red Blood Count 3.59 M/mm3 (4.6-6.20); Red Cell Distribution Width 14.2 % (11.5-14.5); White Blood Count 5.3 K/mm3 (4.5-10.0)
[2022-01-22 17:06] LABS: INR 1.2; Partial Thromboplastin Time 31.5 SECONDS (22.3-36.8); Prothrombin Time 14.4 Seconds (11.1-14.7)
[2022-01-22] MEDS: CALCIUM CARBONATE (TUMS) 500 MG (200 MG ELEMENTAL) PO (18:01)
[2022-01-22] MEDS: NAPROXEN SODIUM 220 MG TABLET PO (20:45)
[2022-01-22] MEDS: LATANOPROST 0.005% OP SOLN 2.5 ML BTL 1 DROP EACH EYE (23:10)
[2022-01-23] VITALS: TEMP 37.7
[2022-01-23 02:24] VITALS: TEMP 37.3
[2022-01-23] MEDS: AMPICILLIN SULB 3 GM/NS 100 ML 3 GM/100 ML VIAL IVPB (05:22)
[2022-01-23] MEDS: LEVOTHYROXINE SODIUM 112 MCG, LEVOTHYROXINE SODIUM 25 MCG 137 MCG PO (05:25)
[2022-01-23 06:00] VITALS: BP 123/46; PULSE 54; RESP 20; TEMP 36.9; O2SAT 99
[2022-01-23 06:12] LABS: Basophils Percent Auto 0.1 % (0.2-1.2); Eosinophils Percent Auto 0.1 % (0-4.4); Hematocrit 31.8 % (42.0-52.0); Hemoglobin 10.3 g/dL (14.0-18.0); Immature Granulocyte Absolute 0.04 K/mm3 (0.00-0.031); Immature Granulocyte Percent A 0.5 % (0-0.5); Immature Platelet Fraction Pct 4.4 % (0.9-11.2); Lymphocytes Absolute Auto 0.74 K/mm3 (0.9-3.2); Lymphocytes Percent Auto 9.1 % (18.3-44.2); Mean Corpuscular HGB Conc 32.4 g/dl (32-36); Mean Corpuscular Hemoglobin 30.2 pg (26-34); Mean Corpuscular Volume 93.3 fl (80-100); Mean Platelet Volume 10.7 fl (7.4-10.4); Monocytes Absolute Auto 0.6 K/mm3 (0.1-0.6); Monocytes Percent Auto 7.2 % (2.6-8.5); Neutrophils Absolute Auto 6.8 K/mm3 (1.3-6.7); Platelet Count Result 89 k/mm3 (150-375); Red Blood Count 3.41 M/mm3 (4.6-6.20); Red Cell Distribution Width 14.4 % (11.5-14.5); White Blood Count 8.2 K/mm3 (4.5-10.0)
[2022-01-23 06:28] LABS: Alanine Aminotransferase 204 U/L (6-50); Albumin Level 3.2 g/dL (3.5-5.1); Alkaline Phosphatase 294 U/L (38-126); Anion Gap 10 mmol/L (8-16); Aspartate Amino Transferase 210 U/L (17-59); Bilirubin Direct 0.4 mg/dL (0-0.3); Bilirubin,Total 2.3 mg/dL (0.2-1.3); Blood Urea Nitrogen 16 mg/dL (9-20); Calcium 8.2 mg/dL (8.4-10.2); Carbon Dioxide 25 mmol/L (22-30); Chloride 102 mmol/L (98-107); Estimated CRCL calculation 29 ml/min; Estimated Glomerular Filt Rate 41; Glucose 99 mg/dL (65-110); Magnesium 1.8 mg/dL (1.6-2.3); Potassium 4.5 mmol/L (3.4-5.0); Sodium 137 mmol/L (137-145)
[2022-01-23] MEDS: SODIUM CHLORIDE 0.9% IV 1,000 ML 75 ML IV CONT ×2 (07:34→23:01)
[2022-01-23] MEDS: NAPROXEN SODIUM 220 MG TABLET PO ×2 (07:35→21:55)
--- NOTE | 2022-01-23 09:21 | WPDGIPROGNO ---
Progress Note: A&P Assessment and Plan (1) Choledocholithiasis: Code(s): K80.50 - Calculus of bile duct without cholangitis or cholecystitis without obstruction Status: Acute Assessment and Plan: Common bile duct stone identified at ERCP. Removed after sphincterotomy and balloon common duct clearance. Last evening had fever and abdominal discomfort suggesting he may have passed additional stone or sludge. LFTs mildly elevated this morning perhaps related to procedure. Plan to follow LFTs daily till resolved. Limit patient to a liquid diet today. Continue to monitor closely. (2) Fever: Code(s): R50.9 - Fever, unspecified Status: Acute Assessment and Plan: Fever recurred last evening after ERCP procedure. Perhaps related to inflammation from procedure. Will continue monitor closely. Complete course of antibiotics. (3) Abnormal LFTs: Code(s): R79.89 - Other specified abnormal findings of blood chemistry Status: Acute Assessment and Plan: LFTs elevated after removal of common bile duct gallstones. Continue to monitor LFTs over the next day or 2. Subjective Date/time seen: 01/23/22 09:21 patient alert comfortable this morning. Had temperature spike to 103 last evening along with vague abdominal discomfort. Feels much improved this morning. Temperature has normalized. Denies abdominal pain at present. Tolerating liquid diet. Review of Systems Review of Systems: Review of systems noncontributory. Exam Narrative: Physical exam reveals patient be alert comfortable at rest he is anicteric. HEENT exam unremarkable. Lungs are clear. Heart without murmur. Abdomen bowel sounds present soft nontender with no hepatosplenomegaly. Objective Data Vital Signs Vital Signs: Vital Signs - 24 hr 01/22/22 11:30 01/22/22 11:52 01/22/22 12:29 Temperature 98.4 F 97.5 F L 98.4 F Pulse Rate 58 L 61 55 L Respiratory Rate 18 18 18 Blood Pressure 155/65 H 179/64 H 178/61 H Pulse Oximetry 97 97 98 Oxygen Delivery Oxygen Flow Rate 01/22/22 13:03 01/22/22 12:31 01/22/22 14:04 Temperature 98.0 F 98.0 F 97.6 F Pulse Rate 71 71 60 Respiratory Rate 20 20 20 Blood Pressure 173/67 H 173/67 H 148/64 H Pulse Oximetry 100 100 100 Oxygen Delivery Room Air Simple Face Mask Oxygen Flow Rate 10 10/07/22 14:14 01/22/22 14:24 01/22/22 14:33 Temperature Pulse Rate 60 58 L 59 L Respiratory Rate 20 20 20 Blood Pressure 163/59 H 165/67 H 159/56 H Pulse Oximetry 100 100 100 Oxygen Delivery Simple Face Mask Simple Face Mask Simple Face Mask Oxygen Flow Rate 8 6 4 01/22/22 14:41 01/22/22 14:50 01/22/22 21:09 Temperature 103.1 F H Pulse Rate 65 70 86 Respiratory Rate 20 20 20 Blood Pressure 159/62 H 162/54 H 118/49 L Pulse Oximetry 100 100 93 Oxygen Delivery Simple Face Mask Room Air Oxygen Flow Rate 2 01/22/22 20:35 01/22/22 21:30 01/23/22 00:00 Temperature 102.1 F H 100 F H Pulse Rate 86 Respiratory Rate 20 Blood Pressure Pulse Oximetry 93 Oxygen Delivery Room Air Oxygen Flow Rate 01/23/22 02:24 01/23/22 06:00 Temperature 99.2 F 98.5 F Pulse Rate 54 L Respiratory Rate 20 Blood Pressure 123/46 L Pulse Oximetry 99 Oxygen Delivery Oxygen Flow Rate Intake/Output Intake/Output: Intake & Output 01/20/22 01/21/22 01/22/22 01/23/22 23:59 23:59 23:59 23:59 Intake Total 1830 1600 4223 2100 Balance 1830 1600 4223 2100 Meds/Results Medications: Active Medications Generic Name Dose Route Start Last Admin Trade Name Freq PRN Reason Stop Dose Admin Ascorbic Acid 500 mg 01/21/22 09:00 01/22/22 09:09 Ascorbic Acid 500 Mg Tablet PO 500 mg DAILY [place] Administration Calcium Carbonate 200 mg 01/20/22 11:39 01/22/22 18:01 Calcium Carbonate (Tums) 500 Mg (200 Mg Elemental) PO 200 mg BID PRN Administration Indigestion Cyanocobalamin 500 mcg 01/21/22 09:00 01/22/22 09:09 Cya
[2022-01-23] MEDS: CYANOCOBALAMIN 500 MCG TABLET PO (10:13)
[2022-01-23] MEDS: CHOLECALCIFEROL 1,000 UNITS TABLET 5000 UNITS PO (10:13)
[2022-01-23] MEDS: FOLIC ACID 1 MG TABLET PO (10:15)
[2022-01-23] MEDS: MAGNESIUM OXIDE 400 MG TABLET PO (10:15)
[2022-01-23] MEDS: OPTI-GEN TAB 1 TABLET PO ×2 (10:15→17:04)
[2022-01-23] MEDS: ZINC SULFATE 220 MG CAPSULE PO (10:15)
[2022-01-23] MEDS: TRIAMCINOLONE ACET 0.1% CREAM 15 GM TUBE 1 APPLIC TOPICAL ×2 (10:15→17:05)
[2022-01-23] MEDS: PANTOPRAZOLE 40 MG TABLET PO (10:15)
[2022-01-23] MEDS: ASCORBIC ACID 500 MG TABLET PO (10:15)
--- NOTE | 2022-01-23 10:44 | PC.NURSE ---
I received a message to contact pt's brother, Richy, who was requesting an update on pt. I attempted to call pt's brother at 10:44 but received a generic voicemail.
--- NOTE | 2022-01-23 11:52 | WPDANESPN ---
Anes - Prog Note Post-Op Date/Time: 01/23/22 11:35 Cardiovascular status: normal Respiratory status: normal Airway patency: baseline Mental status: baseline Post-Op hydration status: normal Vital Signs: Last Vital Signs Temp 98.5 F 01/23/22 06:00 Pulse 54 L 01/23/22 06:00 Resp 20 01/23/22 06:00 BP 123/46 L 01/23/22 06:00 Pulse Ox 99 01/23/22 06:00 O2 Del Method Room Air 01/23/22 08:00 O2 Flow Rate 2 01/22/22 14:41 Pain Score (VAS): 0 I/O: Intake & Output 01/22/22 01/23/22 01/23/22 23:59 07:59 15:59 Intake Total 1560 2100 240 Balance 1560 2100 240 Laboratory Tests 01/23/22 05:38 01/23/22 05:38 01/22/22 01/22/22 01/22/22 09:43 16:49 16:49 WBC 5.3 RBC 3.59 L Hgb 10.8 L Hct 32.9 L MCV 91.6 MCH 30.1 MCHC 32.8 RDW 14.2 Plt Count 99 L D MPV 9.2 Immature Gran % (Auto) Neut % (Auto) Lymph % (Auto) Gaines % (Auto) Eos % (Auto) Baso % (Auto) Lymph # (Auto) Gaines # (Auto) Eos # (Auto) Baso # (Auto) Abs Immat Gran (auto) Absolute Neuts (auto) Absolute Nucleated RBC Nucleated RBC % % Immature Plt Fraction PT 14.4 INR 1.2 APTT 31.5 Sodium Potassium Chloride Carbon Dioxide Anion Gap BUN Creatinine Estim Creat Clear Calc Estimated GFR Glucose Calcium Magnesium Total Bilirubin Direct Bilirubin AST ALT Alkaline Phosphatase Total Protein Albumin Blood Type A Positive 01/23/22 01/23/22 05:38 05:38 WBC 8.2 RBC 3.41 L Hgb 10.3 L Hct 31.8 L MCV 93.3 MCH 30.2 MCHC 32.4 RDW 14.4 Plt Count 89 L MPV 10.7 H Immature Gran % (Auto) 0.5 Neut % (Auto) 83.0 H Lymph % (Auto) 9.1 L Gaines % (Auto) 7.2 Eos % (Auto) 0.1 Baso % (Auto) 0.1 L Lymph # (Auto) 0.74 L Gaines # (Auto) 0.6 Eos # (Auto) 0.0 Baso # (Auto) 0.0 Abs Immat Gran (auto) 0.04 H Absolute Neuts (auto) 6.8 H Absolute Nucleated RBC 0.0 Nucleated RBC % 0.0 % Immature Plt Fraction 4.4 PT INR APTT Sodium 137 Potassium 4.5 Chloride 102 Carbon Dioxide 25 Anion Gap 10 BUN 16 Creatinine 1.60 H Estim Creat Clear Calc 29 Estimated GFR 41 L Glucose 99 Calcium 8.2 L Magnesium 1.8 Total Bilirubin 2.3 H Direct Bilirubin 0.4 H AST 210 H ALT 204 H Alkaline Phosphatase 294 H Total Protein 6.0 L Albumin 3.2 L Blood Type Microbiology 01/19/22 22:36 Blood Blood Culture - Final Escherichia Coli Post-procedural complaints: none Patient Feedback: Patient satisfied with anesthetic care.
[2022-01-23] MEDS: cefTRIAXone 2 GM in SODIUM CHLORIDE 0.9% IV 100 ML IVPB (12:10)
[2022-01-23 14:00] VITALS: BP 100/42; PULSE 60; RESP 16; TEMP 36.2; O2SAT 98
--- NOTE | 2022-01-23 15:30 | PM.IMPN ---
Progress Note: A&P Assessment and Plan (1) Abdominal pain: Code(s): R10.9 - Unspecified abdominal pain Status: Acute Assessment and Plan: RUQ pain with assocaited fever, nausea, vomting. elevated transaminases, normal bilirubin and ALP. CT abdomen pelvis with intra and extrahepatic bile duct dilatation without inflammatory change or obstructing stone or mass. LFT improving. Right upper quadrant ultrasound with hepatomegaly with normal size CBD GI consulted MRCP done does reveal choledocholithiasis. Consented for ERCP at this time Status post ERCP 01/22/2022 with removal of multiple small CBD stones and sludge Post ERCP; had spike of fever and abdominal pain LFTs are more elevated more likely related to ERCP will continue to trend LFTs. (2) Fever: Code(s): R50.9 - Fever, unspecified Status: Acute Assessment and Plan: blood cultures in progress received Zosyn in the emergency room Started on Unasyn supportive care patient with some findings on CT of abdomen and pelvis abnormal liver enzymes continue to monitor Negative for COVID and flu Fever spike again 01/22/2022 blood culture has been repeated You will need IV antibiotics at discharge follow repeat culture if negative will do 2 weeks of ceftriaxone 2 g IV every day (3) Acute cholangitis: Code(s): K83.09 - Other cholangitis Status: Acute Assessment and Plan: receive Zosyn in the emergency room On Unasyn supportive care LFTs improving (4) Generalized weakness: Code(s): R53.1 - Weakness Status: Acute Assessment and Plan: likely secondary to acute illness patient uses a walker supportive care PT OT when clinically able (5) Paroxysmal atrial fibrillation: Onset Date: 06/15/17 Code(s): I48.0 - Paroxysmal atrial fibrillation Status: Acute Assessment and Plan: rate controlled (6) Abnormal LFTs: Code(s): R79.89 - Other specified abnormal findings of blood chemistry Status: Acute Assessment and Plan: Elevated liver enzyme on admission Continue to improved today Hepatitis panel negative Right upper quadrant ultrasound with hepatomegaly (7) Bacteremia: Code(s): R78.81 - Bacteremia Status: Acute Assessment and Plan: on unasyn, GNB in 2/2 came back as E coli. Change Unasyn to ceftriaxone ampicillin is intermediate Resistant to Levaquin and will plan ceftriaxone IV at discharge Plan CKD stage 3: Continue to monitor Mild hyponatremia Lactic acidosis 2.1 on admission improved with hydration Microscopic hematuria thrombocytopenia: Acute on chronic likely related to sepsis. Stable. Platelet transfusion prior to planned ERCP Subjective Date/time seen: 01/23/22 15:30 Interval history: HPI: ?This is an 86-year-old male he is a residential resident he was brought for evaluation to the emergency room by his brother after he had an episode of fever of 104? F, nausea, vomiting generalized weakness, patient had not been able to eat in the holding and was overall not feeling well for the last 2 days or so.? Patient is unable to give much history however complains of diffuse abdominal pain, patient is alert be circumstantial overall cannot really give a good history.? Most of the history has been obtained from brother who is in the emergency room at bedside according in to broader he used to live by himself in an apartment however patient became unable to take care of himself and moved to residential he has been there? and relatively doing well. preliminary workup was significant for CMP with AST ALT alk phos 503/ 376/ 133? a lactic acid was 2.1? patient tested negative for influenza a and B and COVID-[address] of abdomen and pelvis was reported as: IMPRESSION: Intra and extrahepatic bile duct dilation, without inflammatory changes or obstructing stone or mass, commonly attributed to the postcholecystectomy state, noting bert
[2022-01-23] MEDS: LATANOPROST 0.005% OP SOLN 2.5 ML BTL 1 DROP EACH EYE (20:03)
[2022-01-23 22:00] VITALS: BP 132/58; PULSE 60; RESP 18; TEMP 36.2; O2SAT 98
[2022-01-24 06:00] VITALS: BP 122/80; PULSE 68; RESP 18; TEMP 35.9; O2SAT 99
[2022-01-24] MEDS: LEVOTHYROXINE SODIUM 112 MCG, LEVOTHYROXINE SODIUM 25 MCG 137 MCG PO (06:48)
[2022-01-24 07:33] LABS: Hematocrit 31.6 % (42.0-52.0); Hemoglobin 10.4 g/dL (14.0-18.0); Immature Platelet Fraction Pct 5.6 % (0.9-11.2); Mean Corpuscular HGB Conc 32.9 g/dl (32-36); Mean Corpuscular Hemoglobin 30.5 pg (26-34); Mean Corpuscular Volume 92.7 fl (80-100); Mean Platelet Volume 11.2 fl (7.4-10.4); Platelet Count Result 94 k/mm3 (150-375); Red Blood Count 3.41 M/mm3 (4.6-6.20); Red Cell Distribution Width 14.8 % (11.5-14.5); White Blood Count 5.9 K/mm3 (4.5-10.0)
[2022-01-24 07:48] LABS: Alanine Aminotransferase 153 U/L (6-50); Albumin Level 3.1 g/dL (3.5-5.1); Alkaline Phosphatase 234 U/L (38-126); Anion Gap 11 mmol/L (8-16); Aspartate Amino Transferase 115 U/L (17-59); Bilirubin Direct 0.7 mg/dL (0-0.3); Bilirubin,Total 2.7 mg/dL (0.2-1.3); Blood Urea Nitrogen 16 mg/dL (9-20); Calcium 8.1 mg/dL (8.4-10.2); Carbon Dioxide 25 mmol/L (22-30); Chloride 104 mmol/L (98-107); Estimated CRCL calculation 29 ml/min; Estimated Glomerular Filt Rate 41; Glucose 104 mg/dL (65-110); Magnesium 2.1 mg/dL (1.6-2.3); Potassium 3.9 mmol/L (3.4-5.0); Sodium 140 mmol/L (137-145)
[2022-01-24] MEDS: CHOLECALCIFEROL 1,000 UNITS TABLET 5000 UNITS PO (08:20)
[2022-01-24 08:21] VITALS: PULSE 69
[2022-01-24] MEDS: ASCORBIC ACID 500 MG TABLET PO (08:21)
[2022-01-24] MEDS: FOLIC ACID 1 MG TABLET PO (08:21)
[2022-01-24] MEDS: ZINC SULFATE 220 MG CAPSULE PO (08:21)
[2022-01-24] MEDS: METOPROLOL TARTRATE 12.5 MG TABLET PO (08:21)
[2022-01-24] MEDS: OPTI-GEN TAB 1 TABLET PO ×2 (08:22→17:13)
[2022-01-24] MEDS: PANTOPRAZOLE 40 MG TABLET PO (08:22)
[2022-01-24] MEDS: MAGNESIUM OXIDE 400 MG TABLET PO (08:22)
[2022-01-24 08:23] LABS: Band Neutrophils Percent 12 % (0-6); Eosinophils Absolute Manual 0.05 K/mm3 (0.02-0.5); Eosinophils Percent Manual 1 % (0-4); Lymphocytes Absolute Manual 0.35 K/mm3 (1.1-4.5); Monocytes Absolute Manual 0.17 K/mm3 (0.1-0.90); Monocytes Percent Manual 3 % (3-9); Neutrophils Absolute Manual 5.31 K/mm3 (1.3-6.7); Neutrophils Percent Manual 78 % (46-73); Total Cells Counted 100
[2022-01-24] MEDS: TRIAMCINOLONE ACET 0.1% CREAM 15 GM TUBE 1 APPLIC TOPICAL ×2 (08:23→17:13)
[2022-01-24] MEDS: CYANOCOBALAMIN 500 MCG TABLET PO (08:23)
[2022-01-24 08:24] LABS: Acanthocytes 1+ (NORMAL); Platelet Estimate Decreased (Adequate); Schistocytes None Seen (NORMAL); Toxic Granulation Present (NORMAL)
--- NOTE | 2022-01-24 10:26 | WPDGIPROGNO ---
Progress Note: A&P Assessment and Plan (1) Choledocholithiasis: Code(s): K80.50 - Calculus of bile duct without cholangitis or cholecystitis without obstruction Status: Acute Assessment and Plan: Common bile duct gallstones identified. Now removed after ERCP and sphincterotomy. Patient had brief fever postprocedure that is now resolved. LFTs have begun to improve. Plan to advance to a low-fat diet. Continue antibiotics for 10 day course. He may need oral antibiotics for several days after discharge. Continue to follow LFTs after discharge until these are resolved. Agree with increasing diet and activity at this point. (2) Acute cholangitis: Code(s): K83.09 - Other cholangitis Status: Acute Assessment and Plan: Patient admitted with cholangitis fever abdominal pain elevated LFTs. This appears to have been from common bile duct gallstones now removed after ERCP. Plan to continue antibiotics for complete course follow LFTs to resolution. Patient does complain of some constipation and laxatives will be resumed at this point. (3) Abnormal LFTs: Code(s): R79.89 - Other specified abnormal findings of blood chemistry Status: Acute Assessment and Plan: LFTs likely from cholangitis and recent common duct stone. Now beginning to improve. Should be followed to resolution. Subjective Date/time seen: 01/24/22 10:26 Patient alert comfortable this morning. Able to ambulate in the halls intermittently. States he has had no bowel movement for 4-5 days. Tolerating diet without difficulty present. No recent fever. Denies jaundice. No blood in stools. Review of Systems Review of Systems: Review of systems noncontributory. Exam Narrative: Physical exam reveals patient be alert. Vital signs stable. HEENT exam is unremarkable he remains anicteric. Lungs are clear. Heart without murmur. Abdomen bowel sounds present soft nontender with no organomegaly. Objective Data Vital Signs Vital Signs: Vital Signs - 24 hr 01/23/22 14:00 01/23/22 20:20 01/23/22 22:00 Temperature 97.1 F L 97.2 F L Pulse Rate 60 60 Respiratory Rate 16 18 Blood Pressure 100/42 L 132/58 L Pulse Oximetry 98 98 Oxygen Delivery Room Air 01/24/22 06:00 01/24/22 08:21 01/24/22 08:00 Temperature 96.6 F L Pulse Rate 68 69 Respiratory Rate 18 Blood Pressure 122/80 Pulse Oximetry 99 Oxygen Delivery Room Air Intake/Output Intake/Output: Intake & Output 01/21/22 01/22/22 01/23/22 01/24/22 23:59 23:59 23:59 23:59 Intake Total 1600 4223 4590 440 Balance 1600 4223 4590 440 Meds/Results Medications: Active Medications Generic Name Dose Route Start Last Admin Trade Name Ronq PRN Reason Stop Dose Admin Ascorbic Acid 500 mg 01/21/22 09:00 01/24/22 08:21 Ascorbic Acid 500 Mg Tablet PO 500 mg DAILY [place] Administration Calcium Carbonate 200 mg 01/20/22 11:39 01/22/22 18:01 Calcium Carbonate (Tums) 500 Mg (200 Mg Elemental) PO 200 mg BID PRN Administration Indigestion Cyanocobalamin 500 mcg 01/21/22 09:00 01/24/22 08:23 Cyanocobalamin 500 Mcg Tablet PO 500 mcg QAM [place] Administration Folic Acid 1 mg 01/21/22 09:00 01/24/22 08:21 Folic Acid 1 Mg Tablet PO 1 mg QAM [place] Administration Sodium Chloride 1,000 mls @ 75 mls/hr 01/19/22 23:15 01/23/22 23:01 Normal Saline Iv IV CONT 75 mls/hr .[id number] [place] Administration Ceftriaxone Sodium 2 gm/ 100 mls @ 200 mls/hr 01/22/22 12:00 01/23/22 13:10 Sodium Chloride IVPB Infused NOON [place] Infusion Latanoprost 1 drop 01/20/22 21:00 01/23/22 20:03 Latanoprost 0.005% Op Soln 2.5 Ml Btl EACH EYE 1 drop HS [place] Administration Levothyroxine Sodium 112 mcg/ 137 mcg 01/21/22 06:30 01/24/22 06:48 Levothyroxine Sodium 25 mcg PO 137 mcg DAILY@0630 [place] Administration Magnesium Oxide 400 mg 01/21/22 09:00 01/24/22 08:22 Magnesium Oxide 400
[2022-01-24] MEDS: SODIUM CHLORIDE 0.9% IV 1,000 ML 75 ML IV CONT (11:36)
[2022-01-24] MEDS: cefTRIAXone 2 GM in SODIUM CHLORIDE 0.9% IV 100 ML IVPB (11:36)
[2022-01-24] MEDS: polyethylene glycoL 3350 17 GM POWD.PACK PO (11:36)
--- NOTE | 2022-01-24 12:19 | PM.IMPN ---
Progress Note: A&P Assessment and Plan (1) Abdominal pain: Code(s): R10.9 - Unspecified abdominal pain Status: Acute Assessment and Plan: RUQ pain with assocaited fever, nausea, vomting. elevated transaminases, normal bilirubin and ALP. CT abdomen pelvis with intra and extrahepatic bile duct dilatation without inflammatory change or obstructing stone or mass. LFT improving. Right upper quadrant ultrasound with hepatomegaly with normal size CBD GI consulted MRCP done does reveal choledocholithiasis. Consented for ERCP at this time Status post ERCP 01/22/2022 with removal of multiple small CBD stones and sludge Post ERCP; had spike of fever and abdominal pain LFTs are more elevated more likely related to ERCP will continue to trend LFTs. Which continues to improve Will stop IV fluid today (2) Fever: Code(s): R50.9 - Fever, unspecified Status: Acute Assessment and Plan: blood cultures in progress received Zosyn in the emergency room Started on Unasyn supportive care patient with some findings on CT of abdomen and pelvis abnormal liver enzymes continue to monitor Negative for COVID and flu Fever spike again 01/22/2022 blood culture has been repeated You will need IV antibiotics at discharge follow repeat culture if negative will do 2 weeks of ceftriaxone 2 g IV every day (3) Acute cholangitis: Code(s): K83.09 - Other cholangitis Status: Acute Assessment and Plan: receive Zosyn in the emergency room On Unasyn supportive care LFTs improving (4) Generalized weakness: Code(s): R53.1 - Weakness Status: Acute Assessment and Plan: likely secondary to acute illness patient uses a walker supportive care PT OT when clinically able (5) Paroxysmal atrial fibrillation: Onset Date: 06/15/17 Code(s): I48.0 - Paroxysmal atrial fibrillation Status: Acute Assessment and Plan: rate controlled (6) Abnormal LFTs: Code(s): R79.89 - Other specified abnormal findings of blood chemistry Status: Acute Assessment and Plan: Elevated liver enzyme on admission Continue to improved today Hepatitis panel negative Right upper quadrant ultrasound with hepatomegaly (7) Bacteremia: Code(s): R78.81 - Bacteremia Status: Acute Assessment and Plan: on unasyn, GNB in 2/2 came back as E coli. Change Unasyn to ceftriaxone ampicillin is intermediate Resistant to Levaquin and will plan ceftriaxone IV at discharge Plan CKD stage 3: Continue to monitor Mild hyponatremia Lactic acidosis 2.1 on admission improved with hydration Microscopic hematuria thrombocytopenia: Acute on chronic likely related to sepsis. Stable. Platelet transfusion prior to planned ERCP Subjective Date/time seen: 01/24/22 12:19 Interval history: HPI: ?This is an 86-year-old male he is a [facility] resident he was brought for evaluation to the emergency room by his brother after he had an episode of fever of 104? F, nausea, vomiting generalized weakness, patient had not been able to eat in the holding and was overall not feeling well for the last 2 days or so.? Patient is unable to give much history however complains of diffuse abdominal pain, patient is alert be circumstantial overall cannot really give a good history.? Most of the history has been obtained from brother who is in the emergency room at bedside according in to broader he used to live by himself in an apartment however patient became unable to take care of himself and moved to [facility] he has been there? and relatively doing well. preliminary workup was significant for CMP with AST ALT alk phos 503/ 376/ 133? a lactic acid was 2.1? patient tested negative for influenza a and B and COVID-[address] of abdomen and pelvis was reported as: IMPRESSION: Intra and extrahepatic bile duct dilation, without inflammatory changes or obstructing stone or mass, commonly a
[2022-01-24 14:00] VITALS: BP 140/64; PULSE 72; RESP 16; TEMP 36.3; O2SAT 100
[2022-01-24 20:00] VITALS: PULSE 59; RESP 18; O2SAT 97
[2022-01-24] MEDS: LATANOPROST 0.005% OP SOLN 2.5 ML BTL 1 DROP EACH EYE (20:49)
[2022-01-24 21:37] VITALS: BP 119/55; PULSE 59; RESP 18; TEMP 37.3; O2SAT 97
[2022-01-25 05:24] VITALS: BP 161/65; PULSE 62; RESP 17; TEMP 37; O2SAT 97
[2022-01-25] MEDS: LEVOTHYROXINE SODIUM 112 MCG, LEVOTHYROXINE SODIUM 25 MCG 137 MCG PO (05:51)
[2022-01-25 06:15] LABS: Hematocrit 30.2 % (42.0-52.0); Hemoglobin 9.8 g/dL (14.0-18.0); Immature Platelet Fraction Pct 5.6 % (0.9-11.2); Mean Corpuscular HGB Conc 32.5 g/dl (32-36); Mean Corpuscular Hemoglobin 30.2 pg (26-34); Mean Corpuscular Volume 93.2 fl (80-100); Mean Platelet Volume 11.1 fl (7.4-10.4); Platelet Count Result 96 k/mm3 (150-375); Red Blood Count 3.24 M/mm3 (4.6-6.20); Red Cell Distribution Width 14.7 % (11.5-14.5); White Blood Count 4.8 K/mm3 (4.5-10.0)
[2022-01-25 06:26] LABS: Alanine Aminotransferase 162 U/L (6-50); Albumin Level 3.1 g/dL (3.5-5.1); Alkaline Phosphatase 232 U/L (38-126); Anion Gap 8 mmol/L (8-16); Aspartate Amino Transferase 142 U/L (17-59); Bilirubin,Total 2.4 mg/dL (0.2-1.3); Blood Urea Nitrogen 14 mg/dL (9-20); Carbon Dioxide 24 mmol/L (22-30); Chloride 106 mmol/L (98-107); Estimated CRCL calculation 33 ml/min; Estimated Glomerular Filt Rate 48; Glucose 104 mg/dL (65-110); Potassium 3.9 mmol/L (3.4-5.0); Sodium 138 mmol/L (137-145)
[2022-01-25 07:40] LABS: Band Neutrophils Percent 2 % (0-6); Lymphocytes Absolute Manual 0.86 K/mm3 (1.1-4.5); Monocytes Absolute Manual 0.28 K/mm3 (0.1-0.90); Monocytes Percent Manual 6 % (3-9); Neutrophils Absolute Manual 3.64 K/mm3 (1.3-6.7); Neutrophils Percent Manual 74 % (46-73); Total Cells Counted 100
[2022-01-25 07:42] LABS: Burr Cells 2+ (NORMAL); Schistocytes None Seen (NORMAL)
--- NOTE | 2022-01-25 08:32 | WPDGIPROGNO ---
Progress Note: A&P Assessment and Plan (1) Choledocholithiasis: Code(s): K80.50 - Calculus of bile duct without cholangitis or cholecystitis without obstruction Status: Acute Assessment and Plan: Patient is status post ERCP with common bile duct stone removal on Tuesday. Doing well. Brief abdominal pain shortly after procedure. LFTs still slightly elevated. Primarily indirect bilirubin in modest transaminase elevation. Plan to advance to low-fat diet. Okay for discharge. Follow up LFTs weekly after discharge. If LFTs remained elevated, then follow-up in the GI office in 1 month. (2) Abnormal LFTs: Code(s): R79.89 - Other specified abnormal findings of blood chemistry Status: Acute Assessment and Plan: Elevated LFTs felt to be secondary to resolving cholangitis. Patient did have common bile duct gallstones. Distant history of cholecystectomy. Plan to monitor LFTs weekly after discharge. Complete 10 day course of antibiotics encouraged. Subjective Date/time seen: 01/25/22 08:32 Patient alert comfortable this morning. Denies abdominal pain. Tolerating diet without difficulty. Bowel habits have returned to normal. Review of Systems Review of Systems: Review of systems noncontributory. Exam Narrative: Physical exam reveals patient to be alert. Vital signs stable. HEENT exam is unremarkable. Patient anicteric. Lungs are clear to auscultation and percussion. Heart is without murmur. Abdomen bowel sounds present soft nontender with no organomegaly. Objective Data Vital Signs Vital Signs: Vital Signs - 24 hr 01/24/22 14:00 01/24/22 21:37 01/24/22 20:00 Temperature 97.4 F L 99.1 F Pulse Rate 72 59 L 59 L Respiratory Rate 16 18 18 Blood Pressure 140/64 119/55 L Pulse Oximetry 100 97 97 Oxygen Delivery Room Air 01/25/22 05:24 Temperature 98.6 F Pulse Rate 62 Respiratory Rate 17 Blood Pressure 161/65 H Pulse Oximetry 97 Oxygen Delivery Intake/Output Intake/Output: Intake & Output 01/22/22 01/23/22 01/24/22 01/25/22 23:59 23:59 23:59 23:59 Intake Total 4220 4409 2971 Balance 4225 0525 2977 Meds/Results Medications: Active Medications Generic Name Dose Route Start Last Admin Trade Name Freq PRN Reason Stop Dose Admin Ascorbic Acid 500 mg 01/21/22 09:00 01/24/22 08:21 Ascorbic Acid 500 Mg Tablet PO 500 mg DAILY [place] Administration Calcium Carbonate 200 mg 01/20/22 11:39 01/22/22 18:01 Calcium Carbonate (Tums) 500 Mg (200 Mg Elemental) PO 200 mg BID PRN Administration Indigestion Cyanocobalamin 500 mcg 01/21/22 09:00 01/24/22 08:23 Cyanocobalamin 500 Mcg Tablet PO 500 mcg QAM [place] Administration Folic Acid 1 mg 01/21/22 09:00 01/24/22 08:21 Folic Acid 1 Mg Tablet PO 1 mg QAM [place] Administration Ceftriaxone Sodium 2 gm/ 100 mls @ 200 mls/hr 01/22/22 12:00 01/24/22 12:40 Sodium Chloride IVPB Infused NOON [facility] Infusion Latanoprost 1 drop 01/20/22 21:00 01/24/22 20:49 Latanoprost 0.005% Op Soln 2.5 Ml Btl EACH EYE 1 drop HS [facility] Administration Levothyroxine Sodium 112 mcg/ 137 mcg 01/21/22 06:30 01/25/22 05:51 Levothyroxine Sodium 25 mcg PO 137 mcg DAILY@0630 [place] Administration Magnesium Oxide 400 mg 01/21/22 09:00 01/24/22 08:22 Magnesium Oxide 400 Mg Tablet PO 02/20/22 08:59 400 mg DAILY [place] Administration Metoprolol Tartrate 12.5 mg 01/21/22 09:00 01/24/22 08:21 Metoprolol Tartrate 12.5 Mg Tablet PO 12.5 mg DAILY [place] Administration Miconazole Nitrate 1 applic 01/20/22 10:00 01/24/22 20:51 Miconazole 2% Antifungal Ointment 56 Gm TOPICAL 1 applic Q12HR [place] Administration Multivitamins/Minerals 1 tablet 01/20/22 17:00 01/24/22 17:13 Opti-Gen Tab PO 1 tablet BID [place] Administration Naproxen 220 mg 01/20/22 11:39 01/23/22 21:55 Naproxen Sodium 220 Mg Tablet PO 220 mg BID PRN Administration Pain
[2022-01-25] MEDS: CHOLECALCIFEROL 1,000 UNITS TABLET 5000 UNITS PO (08:59)
[2022-01-25 09:00] VITALS: PULSE 62
[2022-01-25] MEDS: OPTI-GEN TAB 1 TABLET PO ×2 (09:00→16:56)
[2022-01-25] MEDS: METOPROLOL TARTRATE 12.5 MG TABLET PO (09:00)
[2022-01-25] MEDS: PANTOPRAZOLE 40 MG TABLET PO (09:00)
[2022-01-25] MEDS: ASCORBIC ACID 500 MG TABLET PO (09:00)
[2022-01-25] MEDS: CYANOCOBALAMIN 500 MCG TABLET PO (09:00)
[2022-01-25] MEDS: ZINC SULFATE 220 MG CAPSULE PO (09:01)
[2022-01-25] MEDS: polyethylene glycoL 3350 17 GM POWD.PACK PO (09:01)
[2022-01-25] MEDS: TRIAMCINOLONE ACET 0.1% CREAM 15 GM TUBE 1 APPLIC TOPICAL ×2 (09:01→16:56)
[2022-01-25] MEDS: FOLIC ACID 1 MG TABLET PO (09:01)
[2022-01-25] MEDS: TROLAMINE SALICYLATE 10% (*BKC) 113 GM CREAM 1 APPLIC TOPICAL (09:01)
[2022-01-25] MEDS: MAGNESIUM OXIDE 400 MG TABLET PO (09:04)
[2022-01-25] MEDS: cefTRIAXone 2 GM in SODIUM CHLORIDE 0.9% IV 100 ML IVPB (12:23)
[2022-01-25 14:00] VITALS: BP 123/62; PULSE 55; RESP 16; TEMP 36.7; O2SAT 97
--- NOTE | 2022-01-25 16:34 | PM.IMPN ---
Progress Note: A&P Assessment and Plan (1) Abdominal pain: Code(s): R10.9 - Unspecified abdominal pain Status: Acute Assessment and Plan: RUQ pain with assocaited fever, nausea, vomting. elevated transaminases, normal bilirubin and ALP. CT abdomen pelvis with intra and extrahepatic bile duct dilatation without inflammatory change or obstructing stone or mass. LFT improving. Right upper quadrant ultrasound with hepatomegaly with normal size CBD GI consulted MRCP done does reveal choledocholithiasis. Consented for ERCP at this time Status post ERCP 01/22/2022 with removal of multiple small CBD stones and sludge Post ERCP; had spike of fever and abdominal pain LFTs are more elevated more likely related to ERCP will continue to trend LFTs. Which continues to improve IV fluid not stop (2) Fever: Code(s): R50.9 - Fever, unspecified Status: Acute Assessment and Plan: blood cultures in progress received Zosyn in the emergency room Started on Unasyn supportive care patient with some findings on CT of abdomen and pelvis abnormal liver enzymes continue to monitor Negative for COVID and flu Fever spike again 01/22/2022 blood culture has been repeated he will need IV antibiotics at discharge follow repeat culture if negative will do 2 weeks of ceftriaxone 2 g IV every day 7 more days at discharge PICC line order discussed with care coordination (3) Acute cholangitis: Code(s): K83.09 - Other cholangitis Status: Acute Assessment and Plan: receive Zosyn in the emergency room On Unasyn supportive care LFTs improving (4) Generalized weakness: Code(s): R53.1 - Weakness Status: Acute Assessment and Plan: likely secondary to acute illness patient uses a walker supportive care PT OT when clinically able (5) Paroxysmal atrial fibrillation: Onset Date: 06/15/17 Code(s): I48.0 - Paroxysmal atrial fibrillation Status: Acute Assessment and Plan: rate controlled (6) Abnormal LFTs: Code(s): R79.89 - Other specified abnormal findings of blood chemistry Status: Acute Assessment and Plan: Elevated liver enzyme on admission Continue to improved today Hepatitis panel negative Right upper quadrant ultrasound with hepatomegaly (7) Bacteremia: Code(s): R78.81 - Bacteremia Status: Acute Assessment and Plan: on unasyn, GNB in 2/2 came back as E coli. Change Unasyn to ceftriaxone ampicillin is intermediate Resistant to Levaquin and will plan ceftriaxone IV at discharge Plan CKD stage 3: Continue to monitor Mild hyponatremia Lactic acidosis 2.1 on admission improved with hydration Microscopic hematuria thrombocytopenia: Acute on chronic likely related to sepsis. Stable. Platelet transfusion prior to planned ERCP Subjective Date/time seen: 01/25/22 16:34 Interval history: HPI: ?This is an 86-year-old male he is a custodial resident he was brought for evaluation to the emergency room by his brother after he had an episode of fever of 104? F, nausea, vomiting generalized weakness, patient had not been able to eat in the holding and was overall not feeling well for the last 2 days or so.? Patient is unable to give much history however complains of diffuse abdominal pain, patient is alert be circumstantial overall cannot really give a good history.? Most of the history has been obtained from brother who is in the emergency room at bedside according in to broader he used to live by himself in an apartment however patient became unable to take care of himself and moved to custodial he has been there? and relatively doing well. preliminary workup was significant for CMP with AST ALT alk phos 503/ 376/ 133? a lactic acid was 2.1? patient tested negative for influenza a and B and COVID-[address] of abdomen and pelvis was reported as: IMPRESSION: Intra and extrahepatic bile duct dilation, w
[2022-01-25] MEDS: LATANOPROST 0.005% OP SOLN 2.5 ML BTL 1 DROP EACH EYE (20:29)
[2022-01-25 22:00] VITALS: BP 157/64; PULSE 63; RESP 16; TEMP 37; O2SAT 97
[2022-01-26] MEDS: LEVOTHYROXINE SODIUM 112 MCG, LEVOTHYROXINE SODIUM 25 MCG 137 MCG PO (05:38)
[2022-01-26 06:00] VITALS: BP 188/69; PULSE 63; RESP 14; TEMP 36.6; O2SAT 96
[2022-01-26 06:21] VITALS: BP 168/78
[2022-01-26 06:37] LABS: Eosinophils Absolute Auto 0.2 K/mm3 (0-0.3); Eosinophils Percent Auto 3.6 % (0-4.4); Hematocrit 31.5 % (42.0-52.0); Hemoglobin 10.4 g/dL (14.0-18.0); Immature Granulocyte Absolute 0.02 K/mm3 (0.00-0.031); Immature Granulocyte Percent A 0.4 % (0-0.5); Lymphocytes Absolute Auto 1.45 K/mm3 (0.9-3.2); Lymphocytes Percent Auto 31.1 % (18.3-44.2); Mean Corpuscular Hemoglobin 30.4 pg (26-34); Mean Corpuscular Volume 92.1 fl (80-100); Mean Platelet Volume 11.8 fl (7.4-10.4); Monocytes Absolute Auto 0.3 K/mm3 (0.1-0.6); Monocytes Percent Auto 7.3 % (2.6-8.5); Neutrophils Absolute Auto 2.7 K/mm3 (1.3-6.7); Neutrophils Percent Auto 57.6 % (45.5-73.1); Platelet Count Result 112 k/mm3 (150-375); Red Blood Count 3.42 M/mm3 (4.6-6.20); Red Cell Distribution Width 14.9 % (11.5-14.5); White Blood Count 4.7 K/mm3 (4.5-10.0)
[2022-01-26 06:53] LABS: Alanine Aminotransferase 189 U/L (6-50); Albumin Level 3.4 g/dL (3.5-5.1); Alkaline Phosphatase 280 U/L (38-126); Anion Gap 8 mmol/L (8-16); Aspartate Amino Transferase 164 U/L (17-59); Bilirubin,Total 1.4 mg/dL (0.2-1.3); Blood Urea Nitrogen 11 mg/dL (9-20); Calcium 8.5 mg/dL (8.4-10.2); Carbon Dioxide 25 mmol/L (22-30); Chloride 105 mmol/L (98-107); Estimated CRCL calculation 38 ml/min; Estimated Glomerular Filt Rate 57; Glucose 97 mg/dL (65-110); Potassium 3.8 mmol/L (3.4-5.0); Sodium 138 mmol/L (137-145)
[2022-01-26] MEDS: LIDOCAINE HCL 1% LOCAL INJ 2 ML AMPUL 5 ML INFILTRATE (07:00)
[2022-01-26 07:44] VITALS: O2SAT 94
[2022-01-26] MEDS: CHOLECALCIFEROL 1,000 UNITS TABLET 5000 UNITS PO (08:30)
[2022-01-26] MEDS: FOLIC ACID 1 MG TABLET PO (08:30)
[2022-01-26] MEDS: PANTOPRAZOLE 40 MG TABLET PO (08:31)
[2022-01-26] MEDS: MAGNESIUM OXIDE 400 MG TABLET PO (08:31)
[2022-01-26] MEDS: ASCORBIC ACID 500 MG TABLET PO (08:31)
[2022-01-26] MEDS: CYANOCOBALAMIN 500 MCG TABLET PO (08:31)
[2022-01-26] MEDS: OPTI-GEN TAB 1 TABLET PO ×2 (08:31→17:00)
[2022-01-26 08:32] VITALS: PULSE 80
[2022-01-26] MEDS: METOPROLOL TARTRATE 12.5 MG TABLET PO (08:32)
[2022-01-26] MEDS: TRIAMCINOLONE ACET 0.1% CREAM 15 GM TUBE 1 APPLIC TOPICAL ×2 (08:32→16:59)
[2022-01-26] MEDS: ZINC SULFATE 220 MG CAPSULE PO (08:36)
[2022-01-26] MEDS: CALCIUM CARBONATE (TUMS) 500 MG (200 MG ELEMENTAL) PO (11:19)
[2022-01-26] MEDS: cefTRIAXone 2 GM in SODIUM CHLORIDE 0.9% IV 100 ML 200 ML IVPB (12:03)
--- NOTE | 2022-01-26 12:44 | PM.DS ---
DS: Admitting Diagnosis Discharge Date 01/26/2022 Admitting Diagnosis abdominal pain DS: Discharge Diagnosis Discharge Diagnosis (1) Abdominal pain: Code(s): R10.9 - Unspecified abdominal pain Status: Acute (2) Fever: Code(s): R50.9 - Fever, unspecified Status: Acute (3) Acute cholangitis: Code(s): K83.09 - Other cholangitis Status: Acute (4) Generalized weakness: Code(s): R53.1 - Weakness Status: Acute (5) Paroxysmal atrial fibrillation: Onset Date: 06/15/17 Code(s): I48.0 - Paroxysmal atrial fibrillation Status: Acute (6) Abnormal LFTs: Code(s): R79.89 - Other specified abnormal findings of blood chemistry Status: Acute (7) Bacteremia: Code(s): R78.81 - Bacteremia Status: Acute DS: Summary Hospital Course Hospital Course: # abdominal pain: RUQ pain with assocaited fever, nausea, vomting. elevated transaminases, normal bilirubin and ALP. All symptoms suggestive of cholangitis CT abdomen pelvis with intra and extrahepatic bile duct dilatation without inflammatory change or obstructing stone or mass.? LFT continues to improve.? Right upper quadrant ultrasound with hepatomegaly with normal size CBD GI consulted MRCP done Revealed choledocholithiasis. he Consented for ERCP at this time Status post ERCP 01/22/2022 with removal of multiple small CBD stones and sludge Post ERCP; he? had a spike of fever and abdominal pain LFTs are more elevated more likely related to ERCP which was monitored during the hospital stay and it started to trend down with no further spike a fever. he was started on Unasyn. Blood culture was positive for Gram-negative bacilli which turned out to be E coli. It was intermediate to Unasyn resistant to levofloxacin and hence antibiotic was switched to ceftriaxone 2 g daily. He will need 10 days total course for his underlying bacteremia. PICC line was placed once repeat blood cultures was negative and is planned to be discharged on ceftriaxone 2 g IV daily for 7 more days. This was arranged with the help of care coordination. Routine PICC care and remove PICC after IV antibiotics are completed # acute cholangitis: See above # generalized weakness: ?likely secondary to acute illness ?patient uses a walker ?supportive care ?PT OT when clinically able # Paroxysmal atrial fibrillation: ?rate controlled # abnormal LFTs: Elevated liver enzyme on admission Hepatitis panel negative Right upper quadrant ultrasound with hepatomegaly # E coli bacteremia: See above # CKD stage 3: Continue to monitor #Mild hyponatremia #Lactic acidosis 2.1 on admission improved with hydration #Microscopic hematuria ? #thrombocytopenia:? Acute on chronic likely related to sepsis.? Stable.? Platelet transfusion prior to planned ERCP. This probably related to sepsis but also has chronic thrombocytopenia at baseline. Platelet count remained stable throughout the hospital stay Time Spent with Patient Time attestation: Total time spent providing and/or coordinating discharge services:45 minutes Exam Narrative: GENERAL: The patient is well developed, not in acute distress HEENT: Nonicteric sclerae, PERRLA, EOMI. Oropharynx clear. Moist mucous membranes. Conjunctivae appear well perfused. CHEST: Chest wall is nontender. HEART: Regular rate and rhythm without murmur, rubs, or gallops LUNGS: Clear to auscultation bilaterally. no respiratory distress ABDOMEN: Soft, positive bowel sounds, non-tender, no organomegaly. SKIN: No rash, no excessive bruising, petechiae, or purpura. NEUROLOGIC: Cranial nerves II-XII intact, alert and oriented x 3, no gross motor deficits EXTREMITIES: no edema, cyanosis or clubbing DS: Data Data Completed and Pending Labs on day of discharge: Labs from last 24 hours 01/26/22 01/26/22 05:44 05:44 WBC 4.7 RBC 3.42 L Hgb 10.4 L Hct 31.5 L MCV 92.1 MCH 30.4 MCHC
--- NOTE | 2022-01-26 13:22 | WPDGIPROGNO ---
Progress Note: A&P Assessment and Plan (1) Choledocholithiasis: Code(s): K80.50 - Calculus of bile duct without cholangitis or cholecystitis without obstruction Status: Acute Assessment and Plan: Patient status post ERCP and removal of common bile duct gallstone. Admitted the hospital with cholangitis. Clinically cholangitis improved no longer septic. Recommend complete course of antibiotics. 10-14 days. Continue to monitor liver function tests still resolution. Currently on low-fat diet. Disposition home per primary service. (2) Abnormal LFTs: Code(s): R79.89 - Other specified abnormal findings of blood chemistry Status: Acute Assessment and Plan: LFTs remain somewhat elevated. They have diminish some since ERCP. Plan to continue to monitor until they resolve. Perhaps LFTs weekly until resolution. (Should LFTs worsen then follow-up MRCP may be indicated.) Subjective Date/time seen: 01/26/22 13:22 Patient alert comfortable this morning. Denies abdominal pain. Tolerating diet. No bleeding reported. Review of Systems Review of Systems: Review of systems noncontributory. Exam Narrative: Physical exam reveals patient to be alert comfortable at rest. Vital signs stable. HEENT exam reveals no icterus. Lungs are clear. Heart without murmur. Abdomen bowel sounds present soft nontender. No organomegaly. Objective Data Vital Signs Vital Signs: Vital Signs - 24 hr 01/25/22 14:00 01/25/22 22:00 01/25/22 20:29 Temperature 98.1 F 98.6 F Pulse Rate 55 L 63 Respiratory Rate 16 16 Blood Pressure 123/62 157/64 H Pulse Oximetry 97 97 Oxygen Delivery Room Air 01/26/22 06:00 01/26/22 06:21 01/26/22 07:44 Temperature 97.9 F Pulse Rate 63 Respiratory Rate 14 Blood Pressure 188/69 H 168/78 H Pulse Oximetry 96 94 Oxygen Delivery Room Air 01/26/22 08:32 01/26/22 08:30 Temperature Pulse Rate 80 Respiratory Rate Blood Pressure Pulse Oximetry Oxygen Delivery Room Air Intake/Output Intake/Output: Intake & Output 01/23/22 01/24/22 01/25/22 01/26/22 23:59 23:59 23:59 23:59 Intake Total 4590 2970 700 1200 Output Total 4 Balance 4590 2970 696 1200 Meds/Results Medications: Active Medications Generic Name Dose Route Start Last Admin Trade Name Robin PRN Reason Stop Dose Admin Ascorbic Acid 500 mg 01/21/22 09:00 01/26/22 08:31 Ascorbic Acid 500 Mg Tablet PO 500 mg DAILY [place]ORENCE Administration Calcium Carbonate 200 mg 01/20/22 11:39 01/26/22 11:19 Calcium Carbonate (Tums) 500 Mg (200 Mg Elemental) PO 200 mg BID PRN Administration Indigestion Cyanocobalamin 500 mcg 01/21/22 09:00 01/26/22 08:31 Cyanocobalamin 500 Mcg Tablet PO 500 mcg QAM [place] Administration Folic Acid 1 mg 01/21/22 09:00 01/26/22 08:30 Folic Acid 1 Mg Tablet PO 1 mg QAM [place] Administration Ceftriaxone Sodium 2 gm/ 100 mls @ 200 mls/hr 01/22/22 12:00 01/26/22 12:03 Sodium Chloride IVPB 200 mls/hr NOON [place] Administration Latanoprost 1 drop 01/20/22 21:00 01/25/22 20:29 Latanoprost 0.005% Op Soln 2.5 Ml Btl EACH EYE 1 drop HS [place]ENCE Administration Levothyroxine Sodium 112 mcg/ 137 mcg 01/21/22 06:30 01/26/22 05:38 Levothyroxine Sodium 25 mcg PO 137 mcg DAILY@0630 [place] Administration Magnesium Oxide 400 mg 01/21/22 09:00 01/26/22 08:31 Magnesium Oxide 400 Mg Tablet PO 02/20/22 08:59 400 mg DAILY [place] Administration Metoprolol Tartrate 12.5 mg 01/21/22 09:00 01/26/22 08:32 Metoprolol Tartrate 12.5 Mg Tablet PO 12.5 mg DAILY [place] Administration Miconazole Nitrate 1 applic 01/20/22 10:00 01/26/22 08:33 Miconazole 2% Antifungal Ointment 56 Gm TOPICAL 1 applic Q12HR [place] Administration Multivitamins/Minerals 1 tablet 01/20/22 17:00 01/26/22 08:31 Opti-Gen Tab PO 1 tablet BID [place]ENCE Administration Naproxen 220 mg 01/20/22 11:39 01/23/22 21:55
[2022-01-26 14:00] VITALS: BP 129/56; PULSE 93; RESP 14; TEMP 36.6; O2SAT 98
[2022-01-26] MEDS: SALINE LOCK FLUSH 10 ML IV PUSH (15:00)
[2022-01-26 16:01] LABS: EDCOVIDSCREEN Negative (Negative)
== END 2022-01-26 18:30 | DRG 445 ==
LOC: ANHED 23:15 → ANH3MEDSUR 01-20 00:05
PROVIDERS: Internal Medicine Gastroenterology; Admitting Provider Internal Medicine; Emergency Provider Emergency Medicine; PCP Family Medicine; Visit Provider Internal Medicine
PROC: (CPT 43260; principal; 2022-01-21 13:30)
PROC: 0FC98ZZ Extirpation of Matter from Common Bile Duct, Via Natural or Artificial Opening Endoscopic (ICD-10-PCS; CPT 43260; principal; 2022-01-22 13:30)
DX: K80.32 Calculus of bile duct with acute cholangitis without obstruction (principal); E87.1 Hypo-osmolality and hyponatremia; R78.81 Bacteremia; E87.20 Acidosis, unspecified; B96.20 Unspecified Escherichia coli [E. coli] as the cause of diseases classified elsewhere; Z20.822 Contact with and (suspected) exposure to COVID-19; I48.0 Paroxysmal atrial fibrillation; N18.30 Chronic kidney disease, stage 3 unspecified; D69.59 Other secondary thrombocytopenia; R31.29 Other microscopic hematuria; Z96.641 Presence of right artificial hip joint; Z87.891 Personal history of nicotine dependence
CPT/HCPCS: 36415; 36430; 36569; 71045; 74019; 74177; 74183; 74329; 76376; 76705; 80053; 80074; 81001; 82248; 83605; 83690; 83735; 85025; 85027; 85055; 85610; 85730; 86900; 86901; 87040; 87077; 87186; 87426; 87502; 96365; 96367; 97110; 97116; 97161; 97165; 97530; 97535; 99211; 99285; A9270; A9577; C1751; C9803; G0378; G0463; J0131; J0295; J0330; J0696; J2405; J2543; J2704; J7030; J7120; P9034; Q9967; U0003; U0005

== ENCOUNTER 2025-03-01 01:29 | Inpatient (IN) | payer MEDICARE, MEDICAID, SELFPAY ==
--- OUTSIDE RECORDS SUMMARY | 2010-02-12 08:00 | XMS_ITS | Continuity of Care Document ---
Author Organization [facility] Address [address] [place] [address] Phone Care Team Providers Care Quality Head Name Role Phone Rach Stanley Unavailable Unavailable Procedures Procedure Date Office/outpatient Visit, Est Optic Nerve Head Eval IPO Reduced 15% Visual Field Examination-Professional Jenni -2009 Visual Field Examination(s) Office/outpatient Visit, Est Optic Nerve Head Eval IPO Reduced 15% Office/outpatient Visit, Est Optic Nerve Head Eval No Script Visual Field Examination-Professional Jenni Office/outpatient Visit, Est Optic Nerve Head Eval IPO Reduced 15% Script Printed/Phoned Pt Requ Or Pharm N ot Availab Eye Exam Established Pt Optic Nerve Head Eval IPO Reduced 15% No Script Fundus Photography W/ Report Visual Field Examination(s) Office Consultation E Prescribing Corneal Pachymetry Advance Directives Directive Yes / No Effective Date File Name No Information Encounters Encounter Description Practice Location Reason(s) For Visit Diagnoses Date Provider Providers Copied on Encounter Office/outpat ient Visit, [facility], [address], [place], [place], [id number], [place] tel:[phone] [facility] No Information 8-201 0 Stanley Rach. [address] [facility] [address], [place], [place], [facility], [place]. tel:[phone] [facility], [address], [place], [place], [id number], [place] [phone] [place] [address] No Information 0 Krishnasamy Gianni. [address] [facility] [address], [place], [place], [facility], [place]. tel:[phone] Referring Provider: Gianni Street, [address] [place] [address] [address], [place], [place], [facility]. tel:[phone] [facility], [address], [place], [place], [id number], [place] tel:[phone] [facility] No Information 0 Krishnasamy Gianni. [facility] [address], [place], [facility], [place]. tel:[phone] Referring Provider: Gianni Street, [address] [place], [place] [address]ate [address], [place], [facility]. tel:[phone] Office/outpat ient Visit, [facility], [address] [place] [address] [address], [place], [place], [id number], [place] tel:[phone] [facility] No Information 0 Krishnasamy Gianni. [address] [place], [place] [address]ate [address], [place], [facility], [place]. tel:[phone] Office/outpat ient Visit, [facility], [address] [place] [address] [address], [place], [place], [id number], [place] [phone] [facility] No Information 4-200 9 Krishnasamy Gianni. [address] [place], [place] [address]ate [facility] [address], [place], [address], [place]. tel:[phone] [facility], [address], [place], [place], [id number], [place] tel:[phone] [place] [address] No Information Johny-3 0-200 9 Krishnasamy Gianni. [address] [facility] [address], [place], [facility], [place]. tel:[phone] Referring Provider: Gianni Street, [address] [place], [place] [address]ate [facility] [address], [place], [facility]. tel:[phone] Office/outpat ient Visit, [facility], [address], [place], [place], [id number], [place] tel:[phone] [place] [address] No Information Johny-1 0-200 9 Krishnasamy Gianni. [address] [place] [address], [facility], [place]. tel:[phone] [facility], [address], [place], [place], [id number], [place] tel:[phone] [facility] No Information August-2 7-200 9 Krishnasamy Gianni. [address] [place] [address], [facility], [place]. tel:[phone] Referring Provider: Maria D Myers, [facility]0 [facility] , [place], [address]. tel:[phone] [facility], [address], [place], [place], [id number], [place] tel:[phone] [facility] No Information August-2 2-200 9 Krishnasamy Gianni. [address] [place] [address], [place], [facility], [place]. tel:[phone] Referring Provider: Gianni Street, [address] [facility] 102, [place], [address]. tel:[phone] Office Consultation [facility], [address], [place], [place], [id number], [place] tel:[phone] [facility] No Information 2-200 9 Jad Archer. [address] [facility] [address], [place], [address], [place]. tel:[phone] Referring Provider: Maria D Myers, [address] [facility] , [place], [address]. tel:[phone] Family History Family Member Type Diagnosis Age At Onset No Information Payers Payer name Insurance type Covered constitution party ID Authoriza ticandelaria(s) Medicare [facility] [id number] [facility] [employer] [id number] Social History Type Description Quantity Date Captured Comments Sex Male Smoking Status No Information Chief Complaint And Reason For Visit No Information Reason For Referral Reason For Referral No Information History Of Present Illness Encounter Date Complaint History Of Prese nt Illness No Information Functional Status Date Functional Assessmen t No Information Instructions Date Instruction Additional Infor mation No Information Assessments Type Assessment Date No Information Patient Care Teams Name Effective Dates (start - stop) Status Members No Information
[2025-03-01] VITALS (42 sets, daily range): BP systolic 99–165; BP diastolic 47–87; PULSE 71–162; RESP 13–25; TEMP 37.1–38.9; O2SAT 93–98; BMI 23.8; BMI 24.0
--- NOTE | 2025-03-01 | ECHO_ITS ---
Patient Info Name: Sebastián Andersen Age: 89 years : 1935 Gender: Male Ht: 69 in Wt: 164 lbs BSA: 1.91 m2 HR: 75 bpm BP: 99 / 64 mmHg Technical Quality: Good Exam Date: 03/01/2025 11:23 AM Patient Status: I Admit Date: 03/01/2025 Exam Type: CA echo doppler color flow Complete two-dimensional, color flow and Doppler transthoracic echocardiogram is performed. Staff Referring Physician: Becca Pyle Fiberglass Fabricator: Ana Rosa Kapoor Attending Provider: Becca Pyle Summary 1. Complete two-dimensional, color flow and Doppler transthoracic echocardiogram is performed. 2. Left ventricular chamber dimension is normal. 3. Left ventricular systolic function is normal, estimated at 60-65. 4. The left ventricular diastolic function is grade I diastolic dysfunction. 5. E/e' 12 is mildly elevated. 6. Left atrial chamber dimension is mildly enlarged. 7. There is mild aortic valve sclerosis. 8. There is mild to moderate aortic valve regurgitation. 9. There is mild tricuspid valve regurgitation. 10. No pulmonary hypertension, estimated pulmonary arterial systolic pressure is 32 mmHg. Left Ventricle E/e' 12 is mildly elevated. Left ventricular chamber dimension is normal. Left ventricular systolic function is normal, estimated at 60-65. The left ventricular diastolic function is grade I diastolic dysfunction. Right Ventricle Right ventricular chamber dimension is normal. Right ventricular systolic function is normal and with normal TAPSE 2.2 cm. Left Atria Left atrial chamber dimension is mildly enlarged. Right Atria Right atrial chamber dimension is normal. Aortic Valve The aortic valve is trileaflet. There is mild aortic valve sclerosis. There is no aortic valve stenosis. There is mild to moderate aortic valve regurgitation. Pulmonic Valve There is no pulmonic regurgitation. Mitral Valve There is no mitral valve stenosis. There is no mitral valve regurgitation. Tricuspid Valve There is mild tricuspid valve regurgitation. No pulmonary hypertension, estimated pulmonary arterial systolic pressure is 32 mmHg. Pericardium/Pleural There is no pericardial effusion. Inferior Vena Cava Normal inferior vena cava with >50% collapse upon inspiration consistent with normal right atrial pressure, 5 mmHg. Aorta The aortic root size at the sinus of Valsalva is normal. Left Ventricular Outflow Tract Name Value Normal LVOT 2D LVOT Diameter 2.0 cm LVOT Doppler LVOT Peak Velocity 116 cm/s LVOT Peak Gradient 5 mmHg LVOT Mean Gradient 3 mmHg LVOT VTI 26 cm LVOT Stroke Volume 82 ml LVOT CO 6.2 l/min LVOT CI 3.2 l/min/m2 Pulmonic Valve Name Value Normal RVOT Doppler RVOT Peak Velocity 94 cm/s RVOT Peak Gradient 4 mmHg PV Doppler PV Peak Velocity 115 cm/s PV Peak Gradient 5 mmHg Mitral Valve Name Value Normal MV Diastolic Function MV E Peak Velocity 100 cm/s MV A Peak Velocity 105 cm/s MV E/A 0.9 MV Decel Time (PW) 243 ms MV Annular TDI MV E/e' (Septal) 14.9 MV E/e' (Lateral) 10.5 MV E/e' (Average) 12.7 Tricuspid Valve Name Value Normal TV Regurgitation Doppler TR Peak Velocity 259 cm/s TR Peak Gradient 27 mmHg Estimated PAP/RSVP RA Pressure 5 mmHg <=5 PA Systolic Pressure 32 mmHg <36 RV Systolic Pressure 32 mmHg <36 Aortic Valve Name Value Normal AV Doppler AV Peak Velocity 157 cm/s AV Peak Gradient 10 mmHg AV Area (Cont Eq Rickie) 2.3 cm2 AV DI (Rickie) 0.74 AV Regurgitation 2D LVOT Area 3.2 cm2 Ventricles Name Value Normal LV Dimensions 2D/MM IVS Diastolic Thickness (2D) 0.9 cm 0.6-1.0 LVID Diastole (2D) 3.9 cm 4.2-5.8 LVIW Diastolic Thickness (2D) 1.0 cm 0.6-1.0 LVID Systole (2D) 2.9 cm 2.5-4.0 LVOT Diameter 2.0 cm LV Mass (2D Cubed) 116.73 g 88.00-224.00 LV Mass Index (2D Cubed) 61 g/m2 49-115 Relative Wall Thickness (2D) 0.51 <=0.42 LV Fractional Shortening/Ejection Fraction 2D/MM LV Fractional Shortening (2D) 26 % 25-43 LV EF (2D Teichholz) 52 % LV Diastolic Volume (4C MOD) 87 ml LV EF (4C MOD) 57 % LV Diastolic Volume (2C MOD) 121 ml LV EF (2C MOD) 66 % LV Diastolic Volume (BP MOD) 103 ml 62-150 LV Diastolic Volume Index (BP MOD) 54 ml/m2 34-74 LV Systolic Volume (BP MOD) 41 ml 21-61 LV Systolic Volume Index (BP MOD) 21 ml/m2 11-31 LV EF (BP MOD) 60 % 52-72 LV Diastolic Length (4C) 7.7 cm LV Systolic Length (4C) 6.3 cm LV Stroke Volume (4C MOD) 49 ml Atria Name Value Normal LA Dimensions LA Volume (4C A-L) 49 ml LA Volume (BP A-L) 55 ml RA Dimensions RA Systolic Major [place] Length (4C) 5.3 cm 2.1-2.7 RA Area (4C) 16.8 cm2 <=18.0 Report Signatures
--- NOTE | ~2025-03-01 | US_ITS ---
BILATERAL LOWER EXTREMITY VENOUS DUPLEX Clinical History: acute PE . Comparison: Right leg venous duplex 07/29/2020. Technique: Grayscale, color, duplex/spectral Doppler sonography bilateral lower extremities. Findings: Bilateral common femoral, femoral, popliteal, and calf veins compressible and color Doppler patent. Normal augmentation with distal compression. No internal echoes. IMPRESSION: 1. No DVT either leg. Reviewed, dictated and finalized at location R. GER FILE IMPRESSION: 1. No DVT either leg.
--- NOTE | ~2025-03-01 | CT_ITS ---
EXAMINATION: CTA chest PE abdomen pel DATE: 03/01/2025 04:58 INDICATION: Chest pain. Right flank pain. TECHNIQUE: Computed tomography angiography (CTA) of the chest was performed with 100 mL Omnipaque-350 intravenous contrast timed to evaluate the pulmonary arteries. Coronal maximum intensity projection 3D-reconstructions were created by the technologist. Computed tomography (CT) of the abdomen and pelvis was performed with intravenous contrast. Automated exposure control and iterative reconstruction technique were employed. The dose-length product was 767.61 mGy-cm. COMPARISON: CT abdomen and pelvis 01/19/2022, MRCP 01/20/2022 FINDINGS: CTA chest: The lungs demonstrate mild atelectasis. There are dependent airspace and groundglass opacities in right lower lobe, consistent with infarct. There is a small right pleural effusion. There is a trace left pleural effusion. The heart size is normal. There are coronary artery calcifications. No pericardial effusion. There is a pulmonary embolus in basilar right lower lobe. There is severe cervical spondylosis and moderate thoracic spondylosis. There are bridging endplate osteophytes at multiple levels in the spine, consistent with diffuse idiopathic skeletal hyperostosis (DISH). There is mild chronic anterior wedging of multiple vertebral bodies. CT abdomen and pelvis: Calcifications in the liver and spleen are consistent with old granulomatous disease. There were changes of cholecystectomy. The common duct is dilated to 16 mm, stable from 01/19/2022. The pancreas and adrenal glands are normal. There is cortical thinning of the kidneys. There are no dilated loops of bowel. The appendix is not visualized. There are no pathologically enlarged lymph nodes. There is no free intraperitoneal fluid. There is a total right hip arthroplasty. There is severe left hip osteoarthritis. There is moderate lumbar spondylosis. There is mild chronic anterior wedging of L1 and L2 vertebral bodies. IMPRESSION: 1. Acute pulmonary embolus in right lower lobe. Infarct in right lower lobe. 2. Small right pleural effusion. 3. Dilated common duct, stable from 01/19/2022. Reviewed, dictated and finalized at location E. GLE PACKER
--- NOTE | ~2025-03-01 | XR_ITS ---
EXAMINATION: XR chest 1V portable COMPARISON: No comparisons available. HISTORY: afib rvr FINDINGS: The lungs are clear, no effusion. No pneumothorax. Heart is normal size. Mediastinal and hilar contours are within normal limits. Bony thorax no acute abnormality. Miscellaneous: None Impression: No acute cardiopulmonary abnormality. Reviewed, dictated and finalized at location P. NG MACHINE TENDER Impression: No acute cardiopulmonary abnormality.
--- NOTE | 2025-03-01 01:38 | ECG_ITS ---
Test Date: 2025-03-01 01:41:15 Measurements Intervals [place] Rate: 150 P: 0 NH: 0 QRS: -14 QRSD: 94 T: 64 QT: 259 QTc: 410 Interpretive Statements ATRIAL FLUTTER/TACHYCARDIA WITH RAPID VENTRICULAR RESPONSE MODERATE ST DEPRESSION [0.05+ mV ST DEPRESSION] ABNORMAL ECG CRITICAL TEST RESULT No previous ECG available for comparison Electronically Signed On 03-01-2025 13:14:12 [employer] by Gokul Petty M.D.
[2025-03-01] MEDS: METOPROLOL TARTRATE INJ 5 MG/5 ML VIAL IV PUSH ×2 (01:56→03:10)
--- NOTE | 2025-03-01 02:20 | ED.BACK ---
HPI - Back Pain/Injury General Chief Complaint: Back Pain/Injury Stated Complaint: R flank pain/GB issues Time Seen by Provider: 03/01/25 02:03 Source: patient Mode of arrival: EMS Limitations: no limitations History of Present Illness HPI Narrative: Patient presents with report of right flank pain, chronic/going on for >1 month. He reports that one one point he fell and hit his bilateral kidneys. Resides at [facility]. Also concerned for gallbladder issues. Reports Dr Giles founds stones in his duct and he had cholangitis but this wasn't recent. Heart rate noted to be 110s-130s for EMS. History of Afib/flutter ; patient is on metoprolol. Patient thinks he has a history of heart failure. He is not on anticoagulation, doesn't know why. He at first reports decreased urinary frequency but then clarifies that the frequency is increased but the output has been less. Sees cardiology here.denies dysuria or hematuria. Had not been febrile but reports subjective fever now; no chills. Denies dyspnea on exertion, palpitations. Having chest pain. Related Data Home Medications ?Medication ?Instructions ?Recorded ?Confirmed ?Last Taken ?Type bimatoprost 0.01 % eye drops 1 drop ophthalmic (eye) DAILY 10/30/19 03/01/25 02/28/25 20:00 History (Kadie) 1 drp calcium carbonate (Tums) 200 mg PO BID PRN Indigestion 10/30/19 03/01/25 01/23/25 16:30 History 200 mg vitamins A,C,W-ukow-hukbke 4,296 1 cap PO BID 10/30/19 03/01/25 02/28/25 09:00 History mcg-226 mg-90 mg capsule (ICaps 1 cap AREDS) cholecalciferol (vitamin D3) 125 125 mcg PO DAILY 05/07/20 03/01/25 02/28/25 09:00 History mcg (5,000 unit) capsule 125 mcg glucosamine 500 1 cap PO DAILY 06/11/20 03/01/25 02/28/25 09:00 History bd-mgfjngxqs-mwxborti comp 400 1 cap mg-D3 667 unit-C-Mn cap ascorbic acid (vitamin C) 500 mg 500 mg PO DAILY 02/23/21 03/01/25 02/28/25 09:00 History capsule 500 mg metoprolol tartrate 25 mg tablet 12.5 mg PO DAILY 05/26/21 03/01/25 02/28/25 09:00 History 25 mg fluticasone propionate 50 1 spray intranasal .Q6hr 03/01/25 03/01/25 02/28/25 09:00 History mcg/actuation nasal 50 mcg spray,suspension loperamide 2 mg capsule 2 mg PO QID PRN loose stool 03/01/25 03/01/25 01/09/25 11:08 History 2 mg pantoprazole 40 mg tablet,delayed 40 mg PO DAILY 03/01/25 03/01/25 02/28/25 09:12 History release 40 mg Allergies Allergy/AdvReac Type Severity Reaction Status Date / Time Sulfa (Sulfonamide Allergy Unknown rash Verified 03/01/25 10:19 Antibiotics) [facility] Past Medical History Medical History (Updated 03/02/25 @ 12:04 by YUDI Platt) Paroxysmal atrial fibrillation (06/15/17) Do not resuscitate Chronic kidney disease, stage 3 unspecified Polyneuropathy, unspecified Other chronic pain Family History Family History Mother Hypertension Cerebrovascular accident, Onset Age: 70 Family history of diabetes mellitus in first degree relative Father Patient's father is Social History Social History (Updated 03/01/25 @ 02:42 by Cinthya Dasilva MD) Social History: Code Status: Do Not Resuscitate (indicated in facility documentation as well as listed as ICD 10 code/problem list in H in facility documentation) Smoking status: Never smoker Second hand tobacco smoke exposure: No Alcohol intake: never Substance use: never Substance use type: does not use Lack of Transportation: No Lack of Food: Never True Current Housing: I Have Housing Concerned About Future Housing: No Difficulty Paying Gas/Electric Bills: No Difficulty Paying for Meds: No Currently Unemployed: No Education: High School Diploma/GED Difficulty w/ Childcare or Family Care: No Living arrangements: assisted living Additional living arrangements comments: [facility] Gender identity (if verbalized by the patient): Male Spiritual care concerns: No Exam Narrative: GENERAL: Well-appearing, well-nourished, and in no acute distress. HEAD: Normocephalic, atraumatic. EYES: Non injected, non icteric ENT: Nares clear, no rhinorrhea or epistaxis. Gross auditory acuity intact. NECK: Supple. No meningismus. CHEST: Speaking in full sentences. No respiratory distress. HEART: Regular rate and rhythm. . ABDOMEN: Soft, nondistended. No rigidity or guarding. Not peritoneal EXTREMITIES: Normal range of motion. No lower extremity edema. SKIN: Warm, dry, no rash. NEURO: No focal deficits. Alert and oriented. Answering questions. Following commands. Normal speech without aphasia or dysarthria. PSYCH: Normal mood and affect. Course Vital Signs Vital signs: Vital Signs Temperature 98.7 F 03/01/25 01:29 Pulse Rate 152 H 03/01/25 01:29 Respiratory Rate 17 03/01/25 01:29 Blood Pressure 134/87 03/01/25 01:29 Pulse Oximetry 97 03/01/25 01:29 Temperature 100.6 F H 03/03/25 04:00 Pulse Rate 69 03/03/25 04:00 Respiratory Rate 17 03/03/25 04:00 Blood Pressure 160/58 H 03/03/25 04:00 Pulse Oximetry 93 03/03/25 04:00 Oxygen Delivery Room Air 03/03/25 04:00 MDM - Back Pain/Injury MDM Narrative Medical decision making narrative: Patient presents with right flank pain, he reports chronic because it has been going on for >1 month. In the emergency department he is afebrile with vital signs notable for an elevated rate 152. Atrial fibrillation with rapid ventricular response (AFib with RVR). He does report having chest pain. Patient hemodynamically stable thus early priority in management was to slow the ventricular rate. Medication list from the facility is reviewed and shows patient is on metoprolol tartrate 25 mg daily with last dose administered 02/28/2025 at 9:17 a.m.. Patient is not on anticoagulation. Used metoprolol given this is a medication he is already on. IVP 5mg over 2 minutes initially ordered. No change. Did change bedside EKG mm/s to confirm atrial rhythm. Suspect afib/flutter with a 2:1 conduction given 150bpm steady. Additional 5mg dose given. No change. Patient's creatinine seems to ranged from 1.1 - 1.6. He has CKD stage 3 per review of chart. Will use diltiazem 0.25mg/kg = 18mg. With this his rate went to the 70s-80s but then 100s, occasionally 110s. BNP mildly elevated. No prior for comparison. He reports a history of heart failure but not on PMH problem list. Elevated troponin. NO prior for comparison. 3 hour ordered and aspirin given for NSTEMI. Microscopic hematuria. Goes into RVR again, 22mg diltiazem given; becomes rate controlled and sustained with this. Normocytic anemia stable from previous. 3 hr troponin higher. 6 hour ordered. Patient reassessed. States his flank pain is gone and chest pain too. Discussed his findings and need for admission. Verifies understanding. Patient discussed with on-call hospitalist Dr Pyle. Will be IMU for the NSTEMI. He will place order/consult cardiology. Will put on heparin for now. Suspects anticoagulation had been deferred previously due to thrombocytopenia. He will consult heme/onc as well. == Critical Care: Patient at risk of decompensation with 1 or more organ systems. Patient required frequent monitoring, reassessment, and intervention. Time spent includes discussion with patient, review of documentation, review of labs/work up/EKG, etc. and documenting. Time excludes separately billable procedures. Differential Diagnosis Differential diagnosis: Likely lumbar radiculopathy, strain of lumbar region, renal colic, pyelonephritis, thoracic back pain and other Lab Data 03/02/25 03:12 03/02/25 03:12 Labs: Lab Results 03/01/25 03/01/25 03/01/25 Range/Units 01:52 03:09 05:27 WBC 9.7 (4.5-10.0) K/mm3 RBC 3.80 L (4.6-6.20) M/mm3 Hgb 11.7 L (14.0-18.0) g/dL Hct 36.1 L (42.0-52.0) % MCV 95.0 (80-100) fl MCH 30.8 (26-34) pg MCHC 32.4 (32-36) g/dl RDW 14.5 (11.5-14.5) % Plt Count 89 L (150-375) k/mm3 MPV 11.4 H (7.4-10.4) fl Immature Gran % (Auto) 0.4 (0-0.5) % Neut % (Auto) 76.9 H (45.5-73.1) % Lymph % (Auto) 13.2 L (18.3-44.2) % [place] % (Auto) 9.4 H (2.6-8.5) % Eos % (Auto) 0.0 (0-4.4) % Baso % (Auto) 0.1 L (0.2-1.2) % Lymph # (Auto) 1.29 (0.9-3.2) K/mm3 [place] # (Auto) 0.9 H (0.1-0.6) K/mm3 Eos # (Auto) 0.0 (0-0.3) K/mm3 Baso # (Auto) 0.0 (0.0-0.1) K/mm3 Abs Immat Gran (auto) 0.04 H (0.00-0.031) K/mm3 Absolute Neuts (auto) 7.5 H (1.3-6.7) K/mm3 Absolute Nucleated RBC 0.000 (0.0-0.012) K/mm3 Nucleated RBC % 0.0 (0.0-0.2) % % Immature Plt Fraction 3.6 (0.9-11.2) % PT 14.8 H (11.1-14.7) Seconds INR 1.2 APTT 37.7 H (22.3-36.8) Seconds D-Dimer 2.52 H (<0.48) ug/mL Sodium 133 L (137-145) mmol/L Potassium 4.3 (3.4-5.0) mmol/L Chloride 100 (98-107) mmol/L Carbon Dioxide 25 (22-30) mmol/L Anion Gap 8 (4-12) mmol/L BUN 21 H D (9-20) mg/dL Creatinine 1.36 H (0.7-1.3) mg/dL Estim Creat Clear Calc 33 ml/min Estimated GFR 49 L (59 - ) Glucose 120 H (65-110) mg/dL Calcium 9.0 (8.4-10.2) mg/dL Magnesium (1.6-2.3) mg/dL Total Bilirubin 1.0 (0.2-1.3) mg/dL AST 22 (17-59) U/L ALT 13 (6-50) U/L Alkaline Phosphatase 72 (38-126) U/L Troponin I 0.286 H* 0.402 H* D (0.000-0.034) ng/mL NT-Pro-B Natriuret Pep 2410 H (19.9-100) pg/mL Total Protein 7.5 (6.3-8.2) g/dL Albumin 4.0 (3.5-5.1) g/dL Lipase 80 (23-300) U/L Vitamin B12 (239-931) pg/mL Folate (2.76->20) ng/mL Procalcitonin ng/mL TSH (Reflex) (0.465-4.68) uIU/mL Urine Color Yellow (Yellow) Urine Appearance Clear (Clear) Urine pH 6.5 (5.0-9.0) Ur Specific [place] 1.016 (1.001-1.035) Urine Protein 1+ H (Negative) mg/dL Urine Glucose (UA) Negative (Negative) mg/dL Urine Ketones Negative (Negative) mg/dL Ur Blood (Man) Trace (Negative) Urine Nitrate Negative (Negative) Urine Bilirubin Negative (Negative) Urine Urobilinogen 0.2 (<2.0) mg/dL Leukocyte Esterase Rfl Negative (Negative) [place]/UL Urine RBC 6-10 H (0-2) /hpf Urine WBC 0-5 (0-3) /hpf Ur Squamous Epith Cells None seen (Few) /hpf Urine Bacteria None seen /hpf Urine Casts 0-2 Copper ug/dl Influenza A (RT-PCR) (Negative) Influenza B (RT-PCR) (Negative) RSV (RT-PCR) (Negative) SARS-CoV-2 RNA (RT-PCR) (Negative) 03/01/25 03/01/25 03/01/25 Range/Units 07:44 08:27 08:29 WBC 10.3 H (4.5-10.0) K/mm3 RBC 3.39 L (4.6-6.20) M/mm3 Hgb 10.5 L (14.0-18.0) g/dL Hct 32.6 L (42.0-52.0) % MCV 96.2 (80-100) fl MCH 31.0 (26-34) pg MCHC 32.2 (32-36) g/dl RDW 14.6 H (11.5-14.5) % Plt Count 89 L (150-375) k/mm3 MPV 10.5 H (7.4-10.4) fl Immature Gran % (Auto) 0.5 (0-0.5) % Neut % (Auto) 78.7 H (45.5-73.1) % Lymph % (Auto) 11.4 L (18.3-44.2) % [place] % (Auto) 9.2 H (2.6-8.5) % Eos % (Auto) 0.1 (0-4.4) % Baso % (Auto) 0.1 L (0.2-1.2) % Lymph # (Auto) 1.17 (0.9-3.2) K/mm3 [place] # (Auto) 1.0 H (0.1-0.6) K/mm3 Eos # (Auto) 0.0 (0-0.3) K/mm3 Baso # (Auto) 0.0 (0.0-0.1) K/mm3 Abs Immat Gran (auto) 0.05 H (0.00-0.031) K/mm3 Absolute Neuts (auto) 8.1 H (1.3-6.7) K/mm3 Absolute Nucleated RBC 0.000 (0.0-0.012) K/mm3 Nucleated RBC % 0.0 (0.0-0.2) % % Immature Plt Fraction 3.5 (0.9-11.2) % PT (11.1-14.7) Seconds INR APTT (22.3-36.8) Seconds D-Dimer (<0.48) ug/mL Sodium (137-145) mmol/L Potassium (3.4-5.0) mmol/L Chloride (98-107) mmol/L Carbon Dioxide (22-30) mmol/L Anion Gap (4-12) mmol/L BUN (9-20) mg/dL Creatinine (0.7-1.3) mg/dL Estim Creat Clear Calc ml/min Estimated GFR (59 - ) Glucose (65-110) mg/dL Calcium (8.4-10.2) mg/dL Magnesium 2.1 (1.6-2.3) mg/dL Total Bilirubin (0.2-1.3) mg/dL AST (17-59) U/L ALT (6-50) U/L Alkaline Phosphatase (38-126) U/L Troponin I 0.465 H* (0.000-0.034) ng/mL NT-Pro-B Natriuret Pep (19.9-100) pg/mL Total Protein (6.3-8.2) g/dL Albumin (3.5-5.1) g/dL Lipase (23-300) U/L Vitamin B12 969.0 H (239-931) pg/mL Folate > 20.0 H (2.76->20) ng/mL Procalcitonin ng/mL TSH (Reflex) 1.060 (0.465-4.68) uIU/mL Urine Color (Yellow) Urine Appearance (Clear) Urine pH (5.0-9.0) Ur Specific [place] (1.001-1.035) Urine Protein (Negative) mg/dL Urine Glucose (UA) (Negative) mg/dL Urine Ketones (Negative) mg/dL Ur Blood (Man) (Negative) Urine Nitrate (Negative) Urine Bilirubin (Negative) Urine Urobilinogen (<2.0) mg/dL Leukocyte Esterase Rfl (Negative) [place]/UL Urine RBC (0-2) /hpf Urine WBC (0-3) /hpf Ur Squamous Epith Cells (Few) /hpf Urine Bacteria /hpf Urine Casts [place] ug/dl Influenza A (RT-PCR) (Negative) Influenza B (RT-PCR) (Negative) RSV (RT-PCR) (Negative) SARS-CoV-2 RNA (RT-PCR) (Negative) 03/01/25 03/01/25 03/01/25 Range/Units 12:23 14:29 20:36 WBC (4.5-10.0) K/mm3 RBC (4.6-6.20) M/mm3 Hgb (14.0-18.0) g/dL Hct (42.0-52.0) % MCV (80-100) fl MCH (26-34) pg MCHC (32-36) g/dl RDW (11.5-14.5) % Plt Count (150-375) k/mm3 MPV (7.4-10.4) fl Immature Gran % (Auto) (0-0.5) % Neut % (Auto) (45.5-73.1) % Lymph % (Auto) (18.3-44.2) % [place] % (Auto) (2.6-8.5) % Eos % (Auto) (0-4.4) % Baso % (Auto) (0.2-1.2) % Lymph # (Auto) (0.9-3.2) K/mm3 [place] # (Auto) (0.1-0.6) K/mm3 Eos # (Auto) (0-0.3) K/mm3 Baso # (Auto) (0.0-0.1) K/mm3 Abs Immat Gran (auto) (0.00-0.031) K/mm3 Absolute Neuts (auto) (1.3-6.7) K/mm3 Absolute Nucleated RBC (0.0-0.012) K/mm3 Nucleated RBC % (0.0-0.2) % % Immature Plt Fraction (0.9-11.2) % PT (11.1-14.7) Seconds INR APTT 82.0 H 112.1 H (22.3-36.8) Seconds D-Dimer (<0.48) ug/mL Sodium (137-145) mmol/L Potassium (3.4-5.0) mmol/L Chloride (98-107) mmol/L Carbon Dioxide (22-30) mmol/L Anion Gap (4-12) mmol/L BUN (9-20) mg/dL Creatinine (0.7-1.3) mg/dL Estim Creat Clear Calc ml/min Estimated GFR (59 - ) Glucose (65-110) mg/dL Calcium (8.4-10.2) mg/dL Magnesium (1.6-2.3) mg/dL Total Bilirubin (0.2-1.3) mg/dL AST (17-59) U/L ALT (6-50) U/L Alkaline Phosphatase (38-126) U/L Troponin I 0.375 H* (0.000-0.034) ng/mL NT-Pro-B Natriuret Pep (19.9-100) pg/mL Total Protein (6.3-8.2) g/dL Albumin (3.5-5.1) g/dL Lipase (23-300) U/L Vitamin B12 (239-931) pg/mL Folate (2.76->20) ng/mL Procalcitonin ng/mL TSH (Reflex) (0.465-4.68) uIU/mL Urine Color (Yellow) Urine Appearance (Clear) Urine pH (5.0-9.0) Ur Specific [place] (1.001-1.035) Urine Protein (Negative) mg/dL Urine Glucose (UA) (Negative) mg/dL Urine Ketones (Negative) mg/dL Ur Blood (Man) (Negative) Urine Nitrate (Negative) Urine Bilirubin (Negative) Urine Urobilinogen (<2.0) mg/dL Leukocyte Esterase Rfl (Negative) [place]/UL Urine RBC (0-2) /hpf Urine WBC (0-3) /hpf Ur Squamous Epith Cells (Few) /hpf Urine Bacteria /hpf Urine Casts Copper ug/dl Pending Influenza A (RT-PCR) (Negative) Influenza B (RT-PCR) (Negative) RSV (RT-PCR) (Negative) SARS-CoV-2 RNA (RT-PCR) (Negative) 03/02/25 03/02/25 03/02/25 Range/Units 03:07 03:12 12:42 WBC 10.3 H (4.5-10.0) K/mm3 RBC 3.31 L (4.6-6.20) M/mm3 Hgb 10.2 L (14.0-18.0) g/dL Hct 32.2 L (42.0-52.0) % MCV 97.3 (80-100) fl MCH 30.8 (26-34) pg MCHC 31.7 L (32-36) g/dl RDW 14.6 H (11.5-14.5) % Plt Count 85 L (150-375) k/mm3 MPV 10.7 H (7.4-10.4) fl Immature Gran % (Auto) 0.3 (0-0.5) % Neut % (Auto) 72.2 (45.5-73.1) % Lymph % (Auto) 15.9 L (18.3-44.2) % [place] % (Auto) 11.5 H (2.6-8.5) % Eos % (Auto) 0.0 (0-4.4) % Baso % (Auto) 0.1 L (0.2-1.2) % Lymph # (Auto) 1.64 (0.9-3.2) K/mm3 [place] # (Auto) 1.2 H (0.1-0.6) K/mm3 Eos # (Auto) 0.0 (0-0.3) K/mm3 Baso # (Auto) 0.0 (0.0-0.1) K/mm3 Abs Immat Gran (auto) 0.03 (0.00-0.031) K/mm3 Absolute Neuts (auto) 7.5 H (1.3-6.7) K/mm3 Absolute Nucleated RBC 0.000 (0.0-0.012) K/mm3 Nucleated RBC % 0.0 (0.0-0.2) % % Immature Plt Fraction 3.5 (0.9-11.2) % PT (11.1-14.7) Seconds INR APTT 128.1 H (22.3-36.8) Seconds D-Dimer (<0.48) ug/mL Sodium 131 L (137-145) mmol/L Potassium 4.5 (3.4-5.0) mmol/L Chloride 100 (98-107) mmol/L Carbon Dioxide 25 (22-30) mmol/L Anion Gap 6 (4-12) mmol/L BUN 23 H (9-20) mg/dL Creatinine 1.58 H (0.7-1.3) mg/dL Estim Creat Clear Calc 29 ml/min Estimated GFR 42 L (59 - ) Glucose 111 H (65-110) mg/dL Calcium 8.5 (8.4-10.2) mg/dL Magnesium 2.2 (1.6-2.3) mg/dL Total Bilirubin 1.0 (0.2-1.3) mg/dL AST 21 (17-59) U/L ALT 14 (6-50) U/L Alkaline Phosphatase 64 (38-126) U/L Troponin I (0.000-0.034) ng/mL NT-Pro-B Natriuret Pep (19.9-100) pg/mL Total Protein 6.8 (6.3-8.2) g/dL Albumin 3.6 (3.5-5.1) g/dL Lipase (23-300) U/L Vitamin B12 (239-931) pg/mL Folate (2.76->20) ng/mL Procalcitonin 0.2 ng/mL TSH (Reflex) (0.465-4.68) uIU/mL Urine Color (Yellow) Urine Appearance (Clear) Urine pH (5.0-9.0) Ur Specific [place] (1.001-1.035) Urine Protein (Negative) mg/dL Urine Glucose (UA) (Negative) mg/dL Urine Ketones (Negative) mg/dL Ur Blood (Man) (Negative) Urine Nitrate (Negative) Urine Bilirubin (Negative) Urine Urobilinogen (<2.0) mg/dL Leukocyte Esterase Rfl (Negative) [place]/UL Urine RBC (0-2) /hpf Urine WBC (0-3) /hpf Ur Squamous Epith Cells (Few) /hpf Urine Bacteria /hpf Urine Casts [place] ug/dl Influenza A (RT-PCR) Negative (Negative) Influenza B (RT-PCR) Negative (Negative) RSV (RT-PCR) Negative (Negative) SARS-CoV-2 RNA (RT-PCR) Negative (Negative) Imaging Data Attestation: I personally reviewed and interpreted this imaging study as follows: My impression: Mild haziness bilaterally but w/o focal consolidation Radiologist's impression: CTA Chest stat rad: Positive for pulmonary embolism. Filling defect in the distal segmental branch of the right posterior descending pulmonary artery. Tiny right pleural effusion. Right basilar airspace disease/atelectasis/infarct. Mild left basilar atelectasis. Incidental findings: Tortuous mildly calcified thoracic aorta. Small mediastinal lymph nodes, nonspecific and probably benign. No pericardial effusion. Degenerative spine changes. CT abdomen pelvis with contrast: No renal calculus. No evidence for obstructive uropathy. Nonspecific bowel gas pattern with moderate to large retained stool in the ascending and rectosigmoid colon. No small bowel obstruction. No free fluid. Dilated common bile duct which may partly reflect prior cholecystectomy. Follow-up as indicated for further evaluation. Incidental findings: Calcified atherosclerotic abdominal aorta. No aneurysmal dilatation or dissection. Prior cholecystectomy. Calcified splenic granulomas. Degenerative changes in spine. Status post right hip arthroplasty. Severe arthritic changes in the left hip. Impressions Chest/Abdomen/Pelvis CTA 03/01/25 07:15 IMPRESSION: 1. Acute pulmonary embolus in right lower lobe. Infarct in right lower lobe. 2. Small right pleural effusion. 3. Dilated common duct, stable from 01/19/2022. ECG Data EKG #1: Attestation: I personally reviewed and interpreted this ECG as follows: ECG completion date: 03/01/25 ECG completion time: 01:41 Interpretation: Atrial flutter/tachycardia with rapid ventricular response at a rate of 150 beats per minute. QRS 94. QT/QTC 259/410. Good R-wave progression across the precordial leads. No obvious ST segment elevation. No T-wave inversion. EKG #2: Attestation: I personally reviewed and interpreted this ECG as follows: ECG completion date: 03/01/25 ECG completion time: 04:12 Interpretation: Atrial fibrillation at a rate of 84 beats per minute. QRS 97. QT/QTC 330/370. Good R-wave progression across the precordial leads. No T-wave inversion. Critical Care Time Critical Care Time Critical Care Time: Yes Total Critical Care Time: 35 Discharge Plan Discharge Clinical Impression: CKD (chronic kidney disease), Atrial flutter with rapid ventricular response, Elevated brain natriuretic peptide (BNP) level, Non-ST elevation NV (NSTEMI), Chest pain, Chronic right flank pain, Microscopic hematuria, Normocytic anemia, Pulmonary embolism, Pleural effusion, right, Constipated, Abdominal aortic atherosclerosis, Thrombocytopenia Patient Disposition: Still a Patient Condition: Stable
[2025-03-01 02:29] LABS: Alanine Aminotransferase 13 U/L (6-50); Albumin Level 4.0 g/dL (3.5-5.1); Alkaline Phosphatase 72 U/L (38-126); Anion Gap 8 mmol/L (4-12); Aspartate Amino Transferase 22 U/L (17-59); Bilirubin,Total 1.0 mg/dL (0.2-1.3); Blood Urea Nitrogen 21 mg/dL (9-20); Calcium 9.0 mg/dL (8.4-10.2); Carbon Dioxide 25 mmol/L (22-30); Chloride 100 mmol/L (98-107); Estimated CRCL calculation 33 ml/min; Estimated Glomerular Filt Rate 49; Glucose 120 mg/dL (65-110); Lipase 80 U/L (23-300); Potassium 4.3 mmol/L (3.4-5.0); Sodium 133 mmol/L (137-145); Total Protein 7.5 g/dL (6.3-8.2)
[2025-03-01] MEDS: SODIUM CHLORIDE 0.9% IV 500 ML 999 ML IV CONT (03:10)
[2025-03-01 03:19] LABS: NT Pro B Type Natriuretic Pept 2410 pg/mL (19.9-100); Troponin I 0.286 ng/mL (0.000-0.034)
--- NOTE | 2025-03-01 03:41 | ECG_ITS ---
Test Date: 2025-03-01 04:12:51 Measurements Intervals [place] Rate: 84 P: 0 UT: 0 QRS: -2 QRSD: 97 T: 46 QT: 330 QTc: 390 Interpretive Statements ATRIAL FIBRILLATION WITH ABERRANT CONDUCTION OR VENTRICULAR PREMATURE COMPLEXES SEPTAL MYOCARDIAL INFARCTION , PROBABLY OLD [40+ ms Q WAVE IN V1/V2] ABNORMAL ECG Compared to ECG 03/01/2025 01:41:15 ATRIAL FIBRILLATION REPLACES ATRIAL FLUTTER WITH RAPID VENTRICULAR RESPONSE Electronically Signed On 03-01-2025 13:17:33 [employer] by Gokul Petty M.D.
[2025-03-01 03:49] LABS: Hematocrit 36.1 % (42.0-52.0); Hemoglobin 11.7 g/dL (14.0-18.0); Immature Granulocyte Percent A 0.4 % (0-0.5); Immature Platelet Fraction Pct 3.6 % (0.9-11.2); Lymphocytes Absolute Auto 1.29 K/mm3 (0.9-3.2); Mean Corpuscular HGB Conc 32.4 g/dl (32-36); Mean Corpuscular Hemoglobin 30.8 pg (26-34); Mean Corpuscular Volume 95.0 fl (80-100); Nucleated Red Blood Cells Absolute Auto 0.000 K/mm3 (0.0-0.012); Nucleated Red Blood Cells Perc 0.0 % (0.0-0.2); Red Blood Count 3.80 M/mm3 (4.6-6.20); White Blood Count 9.7 K/mm3 (4.5-10.0)
[2025-03-01 04:00] LABS: Add Urine Microscopic? YES; Appearance Urine Clear (Clear); Glucose Urine UA Negative (Negative); Leukocyte Esterase Ur Negative LEU/UL (Negative); Nitrate Urine Negative (Negative); Non Pathogenic Casts 0-2; Specific Grav Ur 1.016 (1.001-1.035)
[2025-03-01] MEDS: ASPIRIN 81 MG CHEWABLE TABLET 324 MG PO (04:01)
[2025-03-01 04:05] LABS: INR 1.2; Prothrombin Time 14.8 Seconds (11.1-14.7)
[2025-03-01 04:06] LABS: Partial Thromboplastin Time 37.7 Seconds (22.3-36.8)
[2025-03-01 04:12] LABS: Platelet Count Result 89 k/mm3 (150-375)
[2025-03-01] MEDS: MORPHINE SULFATE (*CRX) 4 MG/ML INJ 2 MG IV PUSH (05:16)
[2025-03-01 06:11] LABS: Troponin I 0.402 ng/mL (0.000-0.034)
--- NOTE | 2025-03-01 07:08 | P.HP_ITS ---
H&P: HPI History of Present Illness Date/Time: 03/01/25 07:08 Chief Complaint: - flank pain Narrative: patient is an 89 yo male with PMH of thrombocytopenia, CKD, Parkinson's disease who presented to the emergency department with complaints of flank pain, dyspnea on exertion. Patient states that a few days ago, he fell getting out of bed, striking his right side on a table. He had no pain until last night when developed discomfort in his right side described as sharp/shooting worse with taking a deep breath. He also has a cough. He denies currently denies fever, chills, chest pain, shortness of breath, nausea/vomiting/diarrhea, LE edema or pain. Reports chronic history of thrombocytopenia which he thinks is from fatty liver disease. Denies history of bleeding. Upon arrival to ED, patient found to be in atrial flutter with RVR. Patient received IV metoprolol. Repeat EKG with atrial fibrillation, heart rate 84. No acute ST-T changes. WBC 10.3, hemoglobin 10.5, HCT 32.6, platelets 89, INR 1.2, D-dimer 2.52, sodium 133, BUN 21, creatinine 1.36, GFR 49, troponin I 0.286-->0.402, BNP 2410. CTA chest/abdomen/pelvis showed acute PE and right lower lobe associated with pulmonary infarct, small right pleural effusion. Patient was started on heparin drip. Patient admitted to IMU with plans for Cardiology and hematology consultations. Review of Systems Review of Systems: All systems reviewed & are unremarkable except as noted in HPI and below [facility] Past Medical History Medical History (Updated 03/01/25 @ 09:42 by Greg Mesa DO) Paroxysmal atrial fibrillation (06/15/17) Do not resuscitate Chronic kidney disease, stage 3 unspecified Polyneuropathy, unspecified Other chronic pain Family History Family History Mother Hypertension Cerebrovascular accident, Onset Age: 70 Family history of diabetes mellitus in first degree relative Father Patient's father is Social History Social History (Updated 03/01/25 @ 02:42 by Cinthya Dasilva MD) Social History: Code Status: Do Not Resuscitate (indicated in facility documentation as well as listed as ICD 10 code/problem list in PMH in facility documentation) Smoking status: Never smoker Second hand tobacco smoke exposure: No Alcohol intake: never Substance use: never Substance use type: does not use Lack of Transportation: No Lack of Food: Never True Current Housing: I Have Housing Concerned About Future Housing: No Difficulty Paying Gas/Electric Bills: No Difficulty Paying for Meds: No Currently Unemployed: No Education: High School Diploma/GED Difficulty w/ Childcare or Family Care: No Living arrangements: assisted living Additional living arrangements comments: [facility] Gender identity (if verbalized by the patient): Male Spiritual care concerns: No Meds Home Medications and Allergies Home Medications ?Medication ?Instructions ?Recorded ?Confirmed ?Type bimatoprost 0.01 % eye drops 1 drop ophthalmic (eye) D AILY 10/30/19 03/01/25 History ([place]um[place]) calcium carbonate (Tums) 200 mg PO BID PRN Indigestio n 10/30/19 03/01/25 History vitamins A,C,F-jhwd-cyuhhu 4,296 1 cap PO BID 10/30/19 03/01/25 History mcg-226 mg-90 mg capsule (ICaps AREDS) vitamin B12 0.5 mg-folic acid 1 mg 1 tablet PO DAILY # 30 tabs 11/19/19 03/01/25 Rx tablet cholecalciferol (vitamin D3) 125 125 mcg PO DAILY 04/1903/01/25 History mcg (5,000 unit) capsule glucosamine 500 1 cap PO DAILY 06/11/2002/16 History jv-uyswyseek-nyfiqmul comp 400 mg-D3 667 unit-C-Mn cap levothyroxine 137 mcg tablet 137 mcg PO DAILY #90 tabs 02/19/21 03/01/25 Rx ascorbic acid (vitamin C) 500 mg 500 mg PO DAILY 02/2303/01/25 History capsule metoprolol tartrate 25 mg tablet 12.5 mg PO DAILY 12/0703/01/25 History fluticasone propionate 50 1 spray intranasal .Q6hr 03/01/25 History mcg/actuation nasal spray,suspension loperamide 2 mg capsule 2 mg PO QID PRN loose stool 03/01/25 03/01/25 History pantoprazole 40 mg tablet,delayed 40 mg PO DAILY 03/0103/01/25 History release Allergies Allergy/AdvReac Type Severity Reaction Status Date / Time Sulfa (Sulfonamide Allergy Unknown rash Verified 03/01/25 10:19 Antibiotics) Vital Signs Vital Signs - 24 hr 03/01/25 01:29 03/01/25 01:46 03/01/25 01:56 Temperature 98.7 F Pulse Rate 152 H 151 H 152 H Respiratory Rate 17 22 H Blood Pressure 134/87 145/76 H Pulse Oximetry 97 03/01/25 02:01 03/01/25 02:16 03/01/25 02:31 Temperature Pulse Rate 149 H 149 H 149 H Respiratory Rate 19 17 25 H Blood Pressure 131/84 130/72 134/83 Pulse Oximetry 97 97 96 03/01/25 02:46 03/01/25 03:10 03/01/25 03:56 Temperature Pulse Rate 150 H 162 H 151 H Respiratory Rate 18 18 Blood Pressure 146/85 H 125/80 Pulse Oximetry 97 94 03/01/25 04:01 03/01/25 04:16 03/01/25 04:31 Temperature Pulse Rate 151 H 113 H 72 Respiratory Rate 19 15 21 H Blood Pressure 126/79 112/58 L 114/50 L Pulse Oximetry 94 93 94 03/01/25 05:03 03/01/25 05:16 03/01/25 05:31 Temperature Pulse Rate 79 78 81 Respiratory Rate 18 21 H 14 Blood Pressure 110/47 L 109/53 L 110/52 L Pulse Oximetry 94 96 94 03/01/25 05:46 03/01/25 06:01 Temperature Pulse Rate 76 74 Respiratory Rate 18 15 Blood Pressure 112/50 L 104/56 L Pulse Oximetry 95 97 Exam Narrative: General: NAD Eyes: EOMI ENT: neck supple Cardiovascular: Regular rate and rhythm Respiratory: Clear to auscultation, respirations even and unlabored on RA Gastrointestinal: Soft, non tender Genitourinary: no suprapubic tenderness Musculoskeletal: No edema Skin: warm, dry Neuro: Alert. Psych: Mood appropriate H&P: Results Labs Labs: Short CBC 03/01/25 Range/Units 01:52 WBC 9.7 (4.5-10.0) K/mm3 Hgb 11.7 L (14.0-18.0) g/dL Hct 36.1 L (42.0-52.0) % Plt Count 89 L (150-375) k/mm3 BMP 03/01/25 01:52 Sodium 133 L Potassium 4.3 Chloride 100 Carbon Dioxide 25 BUN 21 H D Creatinine 1.36 H Glucose 120 H Calcium 9.0 Cardiac Enzymes 03/01/25 03/01/25 Range/Units 01:52 05:27 Troponin I 0.286 H* 0.402 H* D (0.000-0.034) ng/mL Liver Function 03/01/25 Range/Units 01:52 Total Bilirubin 1.0 (0.2-1.3) mg/dL AST 22 (17-59) U/L ALT 13 (6-50) U/L Alkaline Phosphatase 72 (38-126) U/L Albumin 4.0 (3.5-5.1) g/dL Urine 03/01/25 Range/Units 03:09 Urine Color Yellow (Yellow) Urine Appearance Clear (Clear) Urine pH 6.5 (5.0-9.0) Ur Specific [place] 1.016 (1.001-1.035) Urine Protein 1+ H (Negative) mg/dL Urine Glucose (UA) Negative (Negative) mg/dL Assessment and Plan Assessment and plan (1) Pulmonary embolism: Code(s): I26.99 - Other pulmonary embolism without acute cor pulmonale Status: Acute Assessment and Plan: - CTA chest with pulmonary embolus of the RLL with associated RLL infarct - trop and BNP elevated. Checking echo to rule out right heart strain - started on heparin gtt - resume home metoprolol - hematology consulted in setting of thrombocytopenia, appreciate recs (2) Atrial fibrillation with RVR: Code(s): I48.91 - Unspecified atrial fibrillation Status: Acute Assessment and Plan: - no prior history documented - HR 150s on arrival to ED. EKG appeared to be Aflutter with RVR -received IV metoprolol in the ED with improvement. Repeat EKG with atrial fibri llation with controlled rate. - TSH and mag WNL - echo pending - restarted home metoprolol - cardio following (3) Non-ST elevation TN (NSTEMI): Code(s): I21.4 - Non-ST elevation (NSTEMI) myocardial infarction Status: Acute Assessment and Plan: - EKG Afib with controlled rate, no acute ST changes - trop I 0.286, 0.402, 0.465 - continue to trend - monitor on tele - continue heparin drip - cardio consulted, appreciate recs (4) Thrombocytopenia: Code(s): D69.6 - Thrombocytopenia, unspecified Status: Acute Assessment and Plan: - Plts 89, near baseline - hematology consulted due to need anticoagulation , OK to anticoagulate if platelets >50K (5) CKD (chronic kidney disease): Code(s): N18.9 - Chronic kidney disease, unspecified Status: Acute Assessment and Plan: - Cr 1.36, near baseline - avoid nephrotoxins (6) Hypothyroid: Code(s): E03.9 - Hypothyroidism, unspecified Status: Acute Assessment and Plan: - TSH WNL - continue home Synthroid Plan DVT prophylaxis: heparin gtt Code status: DNR - confirmed on admission Dispo: likely discharge back to [facility] in 2-3 days Quality VTE Prophylaxis VTE prophylaxis: pharmacologic ordered Hospitalist MIPS Advance Care Plan I have confirmed that the patient's Advanced Care Plan is present, code status is documented, or surrogate decision maker is listed in patient medical record.: Yes Medication Reconciliation I have utilized all available resources to obtain, update and review the patients current medications (includes all prescriptions, OTC, herbals, cannabis, and nutritional supplements).: Yes The patient is not eligible for med reconciliation; the patient is in a emergent medical situation where delaying treatment would jeopardize the patients health.: No
[2025-03-01] MEDS: HEPARIN SOD/D5W 100 UNITS/ML 25,000 UNITS/250 ML BAG 13 UNITS IV CONT (07:43)
[2025-03-01 07:52] LABS: Hematocrit 32.6 % (42.0-52.0); Hemoglobin 10.5 g/dL (14.0-18.0); Immature Granulocyte Percent A 0.5 % (0-0.5); Immature Platelet Fraction Pct 3.5 % (0.9-11.2); Lymphocytes Absolute Auto 1.17 K/mm3 (0.9-3.2); Mean Corpuscular HGB Conc 32.2 g/dl (32-36); Mean Corpuscular Hemoglobin 31.0 pg (26-34); Mean Corpuscular Volume 96.2 fl (80-100); Nucleated Red Blood Cells Absolute Auto 0.000 K/mm3 (0.0-0.012); Nucleated Red Blood Cells Perc 0.0 % (0.0-0.2); Platelet Count Result 89 k/mm3 (150-375); Red Blood Count 3.39 M/mm3 (4.6-6.20); White Blood Count 10.3 K/mm3 (4.5-10.0)
--- NOTE | 2025-03-01 08:12 | WPCEDHO ---
ED Hand Off Checklist All vitals saved:y IV Site documented:y All med administrations documented:y Triage Note Triage Note Pt [facility] for 03/01/25 01:29 chronic right flank pain. Pt states it has been ongoing for over a month. Allergies Sulfa (Sulfonamide Antibiotics) Allergy (Unknown, Verified 03/01/25 03:28) rash Sulfonamides Family History (Last Reviewed 05/26/21 @ 07:28 by Minesh Phelps RN) Mother Hypertension Cerebrovascular accident Family history of diabetes mellitus in first degree relative Father Patient's father is Active Medications including assessments/comments Heparin Sodium/Dextrose (Heparin Sodium/D5w 100 Units/Ml) 25,000 units in 250 mls @ 13 mls/hr IV CONT .[id number] [place]; Protocol Last Admin: 03/01/25 07:43 Dose: 1,300 units/hr, 13 mls/hr Documented By: JOHN Co-signed By: SAB Infusion/Titration Document 03/01/25 07:43 LEV (Rec: 03/01/25 07:44 LEV [id number]) Co-signed By Mara Brewer RN Intake IV Site Peripheral Access Left Forearm Container Volume 250 Waste Amount 0 Dosing Dose Rate 1,300 Infusion Rate 13 Increase/Decrease Started Elapsed Time Elapsed Time ( 0m minutes) Heparin Infusion Assessment Document 03/01/25 07:43 LEV (Rec: 03/01/25 07:44 LEV [id number]) Co-signed By Mara Brewer RN Heparin Infusion Assessment Heparin Infusion Initiated Action Administered/Completed Medications Discontinued Medications Aspirin (Aspirin 81 Mg Chewable Tablet) 324 mg PO ONCE STA Stop: 03/01/25 03:41 Last Admin: 03/01/25 04:01 Dose: 324 mg Documented By: GEOFFREY Diltiazem HCl (Diltiazem Hcl Inj 25 Mg/5 Ml Vial) 18 mg IV PUSH ONCE STA Stop: 03/01/25 03:33 Last Admin: 03/01/25 03:36 Dose: 18 mg Documented By: GEOFFREY Diltiazem HCl (Diltiazem Hcl Inj 25 Mg/5 Ml Vial) 22 mg IV PUSH ONCE STA Stop: 03/01/25 03:52 Last Admin: 03/01/25 04:01 Dose: 22 mg Documented By: GEOFFREY Sodium Chloride (Normal Saline Iv) 500 mls @ 999 mls/hr IV CONT .Q31M STA Stop: 03/01/25 03:00 Last Infusion: 03/01/25 03:36 Dose: Infused Documented By: Admin: 03/01/25 03:10 Dose: 999 mls/hr Documented By: GEOFFREY Metoprolol Tartrate (Metoprolol Tartrate Inj 5 Mg/5 Ml Vial) 5 mg IV PUSH ONCE STA Stop: 03/01/25 01:46 Last Admin: 03/01/25 01:56 Dose: 5 mg Documented By: GEOFFREY Metoprolol Tartrate (Metoprolol Tartrate Inj 5 Mg/5 Ml Vial) 5 mg IV PUSH ONCE STA Stop: 03/01/25 02:31 Last Admin: 03/01/25 03:10 Dose: 5 mg Documented By: GEOFFREY Metoprolol Tartrate (Metoprolol Tartrate Inj 5 Mg/5 Ml Vial) 5 mg IV PUSH ONCE STA Stop: 03/01/25 03:24 Last Admin: 03/01/25 03:32 Dose: Not Given Documented By: GEOFFREY Non-Admin Reason: Order Discontinued Morphine Sulfate (Morphine Sulfate (*Crx) 4 Mg/Ml Inj) 2 mg IV PUSH ONCE ONE Stop: 03/01/25 04:30 Last Admin: 03/01/25 05:16 Dose: 2 mg Documented By: GEOFFREY Interventions/Assessments IV / Saline Lock, Insert Start: 03/01/25 01:24 Freq: Status: Active Protocol: Document 03/01/25 01:51 ON LICENSE OF [facility] (Rec: 03/01/25 01:51 ON LICENSE OF [facility] [id number]) IV Assessment Peripheral Access Right Hand IV Catheter Access Initiated Before Arrival IV Insertion Date 03/01/25 Catheter Gauge 20 IV Site Assessment WNL IV Care and WNL Maintenance PA: Musculoskeletal Assessment Start: 03/01/25 01:24 Freq: Status: Active Protocol: Document 03/01/25 01:29 ON LICENSE OF [facility] (Rec: 03/01/25 01:29 ON LICENSE OF [facility] [id number]) Musculoskeletal Assessment Right Back Musculoskeletal None Symptoms Limb Description Normal Range of Motion Full Range of Motion Able to Dorsiflex Yes Able to Plantar Flex Yes Strength Strong Last Vital Signs Temperature 98.7 F 03/01/25 01:29 Pulse Rate 77 03/01/25 07:33 Respiratory Rate 18 03/01/25 07:33 Pulse Oximetry 95 03/01/25 07:33 Blood Pressure 123/54 L 03/01/25 07:33 Blood Pressure Mean 77 03/01/25 07:33 Weight 74.5 kg 03/01/25 01:29 Last Result - Abnormals Only RBC 3.80 M/mm3 (4.6-6.20) L 03/01/25 01:52 Hgb 11.7 g/dL (14.0-18.0) L 03/01/25 01:52 Hct 36.1 % (42.0-52.0) L 03/01/25 01:52 Plt Count 89 k/mm3 (150-375) L 03/01/25 01:52 MPV 11.4 fl (7.4-10.4) H 03/01/25 01:52 Neut % (Auto) 76.9 % (45.5-73.1) H 03/01/25 01:52 Lymph % (Auto) 13.2 % (18.3-44.2) L 03/01/25 01:52 [place] % (Auto) 9.4 % (2.6-8.5) H 03/01/25 01:52 Baso % (Auto) 0.1 % (0.2-1.2) L 03/01/25 01:52 [place] # (Auto) 0.9 K/mm3 (0.1-0.6) H 03/01/25 01:52 Abs Immat Gran (auto) 0.04 K/mm3 (0.00-0.031) H 03/01/25 01:52 Absolute Neuts (auto) 7.5 K/mm3 (1.3-6.7) H 03/01/25 01:52 PT 14.8 Seconds (11.1-14.7) H 03/01/25 01:52 APTT 37.7 Seconds (22.3-36.8) H 03/01/25 01:52 D-Dimer 2.52 ug/mL (<0.48) H 03/01/25 01:52 Sodium 133 mmol/L (137-145) L 03/01/25 01:52 BUN 21 mg/dL (9-20) H D 03/01/25 01:52 Creatinine 1.36 mg/dL (0.7-1.3) H 03/01/25 01:52 Estimated GFR 49 (59-) L 03/01/25 01:52 Glucose 120 mg/dL (65-110) H 03/01/25 01:52 Troponin I 0.402 ng/mL (0.000-0.034) H* D 03/01/25 05:27 NT-Pro-B Natriuret Pep 2410 pg/mL (19.9-100) H 03/01/25 01:52 Urine Protein 1+ mg/dL (Negative) H 03/01/25 03:09 Urine RBC 6-10 /hpf (0-2) H 03/01/25 03:09 Most Recent Suicide Severity Rating Suicide Severity Rating NO RISK INDICATED 03/01/25 01:29
--- NOTE | 2025-03-01 09:02 | WNDPHOTO ---
PHOTO ONLY - See Nursing Notes and/ or assessments for documentation.
[2025-03-01 09:06] LABS: Magnesium 2.1 mg/dL (1.6-2.3)
[2025-03-01 09:13] LABS: Troponin I 0.465 ng/mL (0.000-0.034)
--- NOTE | 2025-03-01 09:38 | PM.CNCAR ---
Assessment and Plan Assessment and plan (1) Paroxysmal atrial fibrillation: Onset Date: 06/15/17 Code(s): I48.0 - Paroxysmal atrial fibrillation Status: Acute Assessment and Plan: In Sinus rhythm now but has it intermittently.[id number] 3. On heparin drip. On Metoprolol. (2) Essential (primary) hypertension: Code(s): I10 - Essential (primary) hypertension Status: Acute Assessment and Plan: Stable. (3) Pulmonary embolism: Code(s): I26.99 - Other pulmonary embolism without acute cor pulmonale Status: Acute Assessment and Plan: On heparin drip. (4) Elevated troponin: Code(s): R79.89 - Other specified abnormal findings of blood chemistry Status: Acute Assessment and Plan: Probably due to PE. Obtain echo. History of Present Illness History of Present Illness Consult date/time: 03/01/25 09:38 Reason For Visit: nstemi,pulmonary embolism,afib (now rate controlle Narrative: Patient is a 89 yr old man who I have not seen since 2020 presents to ER for sob. He has a history of hypertension, PAF, Parkinson's disease, NSVT (Short run probably due to stress from taking care of ill daughter at the time. Discontinued Amiodarone May 2017 with no recurrences.). States he fell off from wheelchair at retirement and hit right side of chest. He goes in and out of atria fib/flutter but rate is not fast. Found also to have pulm embolism. He can walk short distances with walker due to fall risk. He has mild edema of both legs that go away by morning. Denies chest pain, orthopnea, palpitations. Cardiovascular Procedures Echo/MUGA:: Echo (EF 60-65%, grade I diastolic dysfunction, mild AI.) - 09/07/2016 Electrophysiology:: EVR (14 day event monitor: Sinus rhythm, HR range 50-120 bpm; average 70 bpm.) - 09/08/2016 EKG (Sinus rhythm at 80 bpm, QTc 439 ms.) - 12/15/2016 EKG (Sinus rhythm at 72 bpm and QTc 411 ms.) - 09/15/2016 EKG (Sinus rhythm, cannot r/o septal infarct, age indeterminate) - 09/08/2016 Stress Tests:: MPI (Lexiscan myoview: Negative for ischemia; small infarct of apical septal and apical lateral otto.) - 09/07/2016 Review of Systems Review of Systems: All systems reviewed & are unremarkable except as noted in HPI and below Constitutional: Constitutional: Reports as per HPI, Denies chills and Denies fever(s) Cardiovascular: Cardiovascular: Reports as per HPI, Denies chest pain and Denies irregular heart rhythm Respiratory: Respiratory: Reports as per HPI and Reports dyspnea on exertion Gastrointestinal: Gastrointestinal: Reports as per HPI and Denies abdominal pain Genitourinary: Genitourinary: Reports as per HPI and Denies dysuria Musculoskeletal: Musculoskeletal: Reports as per HPI Neurologic: Reports as per HPI, Denies dizziness and Denies syncope [facility] Past Medical History Medical History (Updated 03/01/25 @ 09:42 by Greg Mesa DO) Paroxysmal atrial fibrillation (06/15/17) Do not resuscitate Chronic kidney disease, stage 3 unspecified Polyneuropathy, unspecified Other chronic pain Family History Family History Mother Hypertension Cerebrovascular accident, Onset Age: 70 Family history of diabetes mellitus in first degree relative Father Patient's father is Social History Social History (Updated 03/01/25 @ 02:42 by Cinthya Dasilva MD) Social History: Code Status: Do Not Resuscitate (indicated in facility documentation as well as listed as ICD 10 code/problem list in PMH in facility documentation) Smoking status: Former smoker Second hand tobacco smoke exposure: No Alcohol intake: never Substance use: never Substance use type: does not use Living arrangements: assisted living Additional living arrangements comments: [facility] Gender identity (if verbalized by the patient): Male Spiritual care concerns: No Meds Home Medications and Allergies Home Medications ?Medication ?Instructions ?Recorded ?Confirmed ?Type bimatoprost 0.01 % eye drops 1 drop ophthalmic (eye) DAILY 10/30/19 03/19/24 History ([place]) calcium carbonate (Tums) 200 mg PO BID PRN Indigestion 10/30/19 03/19/24 History vitamins A,C,X-scit-akbvwc 4,296 1 cap PO BID 10/30/19 03/19/24 History mcg-226 mg-90 mg capsule (ICaps AREDS) vitamin B12 0.5 mg-folic acid 1 mg 1 tablet PO DAILY #30 tabs 11/19/19 03/19/24 Rx tablet cholecalciferol (vitamin D3) 125 125 mcg PO DAILY 05/07/20 03/19/24 History mcg (5,000 unit) capsule glucosamine 500 1 cap PO DAILY 06/11/20 03/19/24 History sk-izizgwsvo-qswvftyr comp 400 mg-D3 667 unit-C-Mn cap lidocaine HCl 4 % topical cream 1 applic topical BID PRN Pain 06/11/20 03/19/24 History (Aspercreme (lidocaine HCl)) magnesium 250 mg tablet 500 mg PO DAILY 06/11/20 03/19/24 History naproxen sodium 220 mg tablet 220 mg PO BID PRN Pain 06/11/20 03/19/24 History (Flanax (naproxen)) triamcinolone acetonide 0.1 % 1 applic topical BID #80 grams 08/08/20 03/19/24 Rx topical cream levothyroxine 137 mcg tablet 137 mcg PO DAILY #90 tabs 02/19/21 03/19/24 Rx ascorbic acid (vitamin C) 500 mg 500 mg PO DAILY 02/23/21 03/19/24 History capsule omeprazole 20 mg capsule,delayed 20 mg PO DAILY #90 caps 02/23/21 03/19/24 Rx release zinc acetate 25 mg (zinc) capsule 25 mg PO DAILY 02/23/21 03/19/24 History (Wilzin) metoprolol tartrate 25 mg tablet 12.5 mg PO DAILY 05/26/21 03/19/24 History ceftriaxone 2 gram solution for 2 g IV DAILY #7 ea 01/26/22 03/19/24 Rx injection Allergies Allergy/AdvReac Type Severity Reaction Status Date / Time Sulfa (Sulfonamide Allergy Unknown rash Verified 03/01/25 03:28 Antibiotics) Vital Signs Vital Signs - 24 hr 03/01/25 01:29 03/01/25 01:46 03/01/25 01:56 Temperature 98.7 F Pulse Rate 152 H 151 H 152 H Respiratory Rate 17 22 H Blood Pressure 134/87 145/76 H Pulse Oximetry 97 03/01/25 02:01 03/01/25 02:16 03/01/25 02:31 Temperature Pulse Rate 149 H 149 H 149 H Respiratory Rate 19 17 25 H Blood Pressure 131/84 130/72 134/83 Pulse Oximetry 97 97 96 03/01/25 02:46 03/01/25 03:10 03/01/25 03:56 Temperature Pulse Rate 150 H 162 H 151 H Respiratory Rate 18 18 Blood Pressure 146/85 H 125/80 Pulse Oximetry 97 94 03/01/25 04:01 03/01/25 04:16 03/01/25 04:31 Temperature Pulse Rate 151 H 113 H 72 Respiratory Rate 19 15 21 H Blood Pressure 126/79 112/58 L 114/50 L Pulse Oximetry 94 93 94 03/01/25 05:03 03/01/25 05:16 03/01/25 05:31 Temperature Pulse Rate 79 78 81 Respiratory Rate 18 21 H 14 Blood Pressure 110/47 L 109/53 L 110/52 L Pulse Oximetry 94 96 94 03/01/25 05:46 03/01/25 06:01 03/01/25 06:02 Temperature Pulse Rate 76 74 74 Respiratory Rate 18 15 18 Blood Pressure 112/50 L 104/56 L Pulse Oximetry 95 97 95 03/01/25 06:15 03/01/25 06:16 03/01/25 06:52 Temperature Pulse Rate 71 76 77 Respiratory Rate 16 13 14 Blood Pressure 107/58 L Pulse Oximetry 94 98 96 03/01/25 07:00 03/01/25 07:01 03/01/25 07:02 Temperature Pulse Rate 77 77 76 Respiratory Rate 16 15 17 Blood Pressure 120/55 L Pulse Oximetry 95 96 95 03/01/25 07:33 03/01/25 08:17 03/01/25 08:48 Temperature 99.1 F Pulse Rate 77 74 81 Respiratory Rate 18 16 22 H Blood Pressure 123/54 L 116/61 99/64 L Pulse Oximetry 95 96 98 Exam Const: General: cooperative, healthy appearing and comfortable Resp: Auscultation: clear to auscultation bilaterally, no crackles, no rales, no rhonchi and no wheezes Cardio: Rate: regular rate Rhythm: regular rhythm Heart sounds: no murmurs Peripheral pulses: dorsalis pedis present GI: GI Palp: No abdominal tenderness and Yes Soft to palpation Neuro: General: oriented to person, oriented to place and oriented to time Extrem: Right lower extremity: edema Left lower extremity: no edema Other: Trace edema of right leg Results Labs and Meds 03/01/25 07:44 03/01/25 01:52 Lab results: Cardiac Enzymes 03/01/25 03/01/25 03/01/25 Range/Units 01:52 05:27 08:29 AST 22 (17-59) U/L Troponin I 0.286 H* 0.402 H* D 0.465 H* (0.000-0.034) ng/mL Coagulation 03/01/25 Range/Units 01:52 PT 14.8 H (11.1-14.7) Seconds APTT 37.7 H (22.3-36.8) Seconds CBC 03/01/25 03/01/25 Range/Units 01:52 07:44 WBC 9.7 10.3 H (4.5-10.0) K/mm3 RBC 3.80 L 3.39 L (4.6-6.20) M/mm3 Hgb 11.7 L 10.5 L (14.0-18.0) g/dL Hct 36.1 L 32.6 L (42.0-52.0) % Plt Count 89 L 89 L (150-375) k/mm3 Lymph # (Auto) 1.29 1.17 (0.9-3.2) K/mm3 [place] # (Auto) 0.9 H 1.0 H (0.1-0.6) K/mm3 Eos # (Auto) 0.0 0.0 (0-0.3) K/mm3 Baso # (Auto) 0.0 0.0 (0.0-0.1) K/mm3 Comprehensive Metabolic Panel 03/01/25 Range/Units 01:52 Sodium 133 L (137-145) mmol/L Potassium 4.3 (3.4-5.0) mmol/L Chloride 100 (98-107) mmol/L Carbon Dioxide 25 (22-30) mmol/L BUN 21 H D (9-20) mg/dL Creatinine 1.36 H (0.7-1.3) mg/dL Glucose 120 H (65-110) mg/dL Calcium 9.0 (8.4-10.2) mg/dL AST 22 (17-59) U/L ALT 13 (6-50) U/L Alkaline Phosphatase 72 (38-126) U/L Total Protein 7.5 (6.3-8.2) g/dL Albumin 4.0 (3.5-5.1) g/dL Intake and Output 02/28/25 03/01/25 03/01/25 23:59 07:59 15:59 Intake Total 500 Balance 500 Intake: IV 500 Sodium Chloride 0.9% IV 500 ml 500 @ 999 mls/hr IV CONT .Q31M STA Rx#:[id number] Other: # Urine Diapers 1 Number of Bowel Movements Today 1 Patient Weight 03/01/25 23:59 Weight 73.4 kg
[2025-03-01 10:06] LABS: Thyroid Stimulating Hormone Reflex 1.060 uIU/mL (0.465-4.68)
--- NOTE | 2025-03-01 10:13 | PC.NURSE ---
Patient arrived to the floor via stretcher from the ER at approximately 0836am. aquatic scientist placed on and functioning at this time. Vital signs obtained. Photos taken of wound on buttocks. No acute distress noted at this time. Provider at bedside assessing patient.
--- NOTE | 2025-03-01 10:20 | P.CONONC_ITS ---
Assessment and Plan Assessment and plan (1) Thrombocytopenia: Code(s): D69.6 - Thrombocytopenia, unspecified Status: Acute (2) Pulmonary embolism: Code(s): I26.99 - Other pulmonary embolism without acute cor pulmonale Status: Acute (3) CKD (chronic kidney disease): Code(s): N18.9 - Chronic kidney disease, unspecified Status: Acute Plan Plan: PE secondary to A fib and wheelchair bound - Okay to anticoagulate as long as plt count > 50k Recommend DOAC Thrombocytopenia DD: DIC, ITP, MDS, nutrient deficiency, pseudothrombocytopenia, drug induced - Draw labs - Vitamin B12, folate, copper, review peripheral smear. Elevated PT and PTT DD: liver disease, acute DIC, Vitamin K deficiency, acquired factor deficiencies. Observe Elevated D-dimer secondary to recent PE. Observe Further recommendations pending lab results Thank you ADDENDUM: Peripheral smear evaluation - no plt clumping. No hypersegmented WBCs. No hemolysis. Await lab results. 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 No BM bx indicated at this time. Will observe. If patient is discharged over the weekend, please schedule f/u with Dr. Marx in 1-2 months. Thank you. HPI Data of Consult Date/Time: 03/01/25 10:20 Requesting Physician: Becca Pyle MD Primary Care Provider: Meng Hameed MD Consult Narrative Narrative: Sebastián Andersen is a 89 year old male admitted with SOB. He has intermittent atrial fib and developed a PE. He had apparently not been anticoagulated in the past due to his thrombocytopenia. The patient also has CKD, stage III. HIs nephew is currently at the bedside. He reports that the patient had recently fallen against a wall a few days ago when getting up out of his wheelchair. Today he developed pain with inspiration and came to the ER. He was diagnosed with a PE and begun on iv heparin. CTA chest, abd/pelvis (02/27/25): 1. Acute pulmonary embolus in right lower lobe. Infarct in right lower lobe. 2. Small right pleural effusion. 3. Dilated common duct, stable from 01/19/2022. Labs: (03/01/25): WBC 9.7, Hgb 11.7, Hct 36.1, Plt 89, BUN 21, crea 1.36 Review of Systems 2 Cardiovascular: Comments: RRR Respiratory: Comments: Right sided chest pain on inspiration Gastrointestinal: Comments: No melena or hematochezia Genitourinary: Comments: NO dysuria Neurologic: Comments: No headaches [facility] Past Medical History Medical History (Updated 03/01/25 @ 09:42 by Greg Mesa DO) Paroxysmal atrial fibrillation (06/15/17) Do not resuscitate Chronic kidney disease, stage 3 unspecified Polyneuropathy, unspecified Other chronic pain Family History Family History Mother Hypertension Cerebrovascular accident, Onset Age: 70 Family history of diabetes mellitus in first degree relative Father Patient's father is Social History Social History (Updated 03/01/25 @ 02:42 by Cinthya Dasilva MD) Social History: Code Status: Do Not Resuscitate (indicated in facility documentation as well as listed as ICD 10 code/problem list in PMH in facility documentation) Smoking status: Never smoker Second hand tobacco smoke exposure: No Alcohol intake: never Substance use: never Substance use type: does not use Lack of Transportation: No Lack of Food: Never True Current Housing: I Have Housing Concerned About Future Housing: No Difficulty Paying Gas/Electric Bills: No Difficulty Paying for Meds: No Currently Unemployed: No Education: High School Diploma/GED Difficulty w/ Childcare or Family Care: No Living arrangements: assisted living Additional living arrangements comments: [facility] Gender identity (if verbalized by the patient): Male Spiritual care concerns: No Meds Home Medications and Allergies Home Medications ?Medication ?Instructions ?Recorded ?Confirmed ?Type bimatoprost 0.01 % eye drops 1 drop ophthalmic (eye) D AILY 10/30/19 03/01/25 History (Lumigan) calcium carbonate (Tums) 200 mg PO BID PRN Indigestio n 10/30/19 03/01/25 History vitamins A,C,Q-gseh-azwknw 4,296 1 cap PO BID 10/30/19 03/01/25 History mcg-226 mg-90 mg capsule (ICaps AREDS) vitamin B12 0.5 mg-folic acid 1 mg 1 tablet PO DAILY # 30 tabs 11/19/19 03/01/25 Rx tablet cholecalciferol (vitamin D3) 125 125 mcg PO DAILY 04/1903/01/25 History mcg (5,000 unit) capsule glucosamine 500 1 cap PO DAILY 06/11/2002/16 History kb-viazvpbbw-xqoytepq comp 400 mg-D3 667 unit-C-Mn cap levothyroxine 137 mcg tablet 137 mcg PO DAILY #90 tabs 02/19/21 03/01/25 Rx ascorbic acid (vitamin C) 500 mg 500 mg PO DAILY 02/2303/01/25 History capsule metoprolol tartrate 25 mg tablet 12.5 mg PO DAILY 12/0703/01/25 History fluticasone propionate 50 1 spray intranasal .Q6hr 03/01/25 History mcg/actuation nasal spray,suspension loperamide 2 mg capsule 2 mg PO QID PRN loose stool 03/01/25 03/01/25 History pantoprazole 40 mg tablet,delayed 40 mg PO DAILY 03/0103/01/25 History release Allergies Allergy/AdvReac Type Severity Reaction Status Date / Time Sulfa (Sulfonamide Allergy Unknown rash Verified 03/01/25 10:19 Antibiotics) Vital Signs Vital Signs - 24 hr 03/01/25 01:29 03/01/25 01:46 03/01/25 01:56 Temperature 37.1 C Pulse Rate 152 H 151 H 152 H Respiratory Rate 17 22 H Blood Pressure 134/87 145/76 H Pulse Oximetry 97 03/01/25 02:01 03/01/25 02:16 03/01/25 02:31 Temperature Pulse Rate 149 H 149 H 149 H Respiratory Rate 19 17 25 H Blood Pressure 131/84 130/72 134/83 Pulse Oximetry 97 97 96 03/01/25 02:46 03/01/25 03:10 03/01/25 03:56 Temperature Pulse Rate 150 H 162 H 151 H Respiratory Rate 18 18 Blood Pressure 146/85 H 125/80 Pulse Oximetry 97 94 03/01/25 04:01 03/01/25 04:16 03/01/25 04:31 Temperature Pulse Rate 151 H 113 H 72 Respiratory Rate 19 15 21 H Blood Pressure 126/79 112/58 L 114/50 L Pulse Oximetry 94 93 94 03/01/25 05:03 03/01/25 05:16 03/01/25 05:31 Temperature Pulse Rate 79 78 81 Respiratory Rate 18 21 H 14 Blood Pressure 110/47 L 109/53 L 110/52 L Pulse Oximetry 94 96 94 03/01/25 05:46 03/01/25 06:01 03/01/25 06:02 Temperature Pulse Rate 76 74 74 Respiratory Rate 18 15 18 Blood Pressure 112/50 L 104/56 L Pulse Oximetry 95 97 95 03/01/25 06:15 03/01/25 06:16 03/01/25 06:52 Temperature Pulse Rate 71 76 77 Respiratory Rate 16 13 14 Blood Pressure 107/58 L Pulse Oximetry 94 98 96 03/01/25 07:00 03/01/25 07:01 03/01/25 07:02 Temperature Pulse Rate 77 77 76 Respiratory Rate 16 15 17 Blood Pressure 120/55 L Pulse Oximetry 95 96 95 03/01/25 07:33 03/01/25 08:17 03/01/25 08:48 Temperature 37.3 C Pulse Rate 77 74 81 Respiratory Rate 18 16 22 H Blood Pressure 123/54 L 116/61 99/64 L Pulse Oximetry 95 96 98 Exam 2 Narrative: Well appearing male who looks his stated age HENMT: Other: NO oral lesions Eyes: Other: Anicteric sclerae Resp: Other: Bilateral air entry. No wheezing Cardio: Other: RRR GI: Other: Soft, NT, BS nl. No organomegaly. Skin: Other: Scattered bruises Neuro: Other: Alert and awake. Grossly nonfocal. Extrem: Other: Minimal RLE edema Psych: Other: Normal affect Results Labs 03/01/25 07:44 03/01/25 01:52 Labs: Short CBC 03/01/25 03/01/25 Range/Units 01:52 07:44 WBC 9.7 10.3 H (4.5-10.0) K/mm3 Hgb 11.7 L 10.5 L (14.0-18.0) g/dL Hct 36.1 L 32.6 L (42.0-52.0) % Plt Count 89 L 89 L (150-375) k/mm3 BMP 03/01/25 01:52 Sodium 133 L Potassium 4.3 Chloride 100 Carbon Dioxide 25 BUN 21 H D Creatinine 1.36 H Glucose 120 H Calcium 9.0 Cardiac Enzymes 03/01/25 03/01/25 03/01/25 Range/Units 01:52 05:27 08:29 Troponin I 0.286 H* 0.402 H* D 0.465 H* (0.000-0.034) ng/mL Liver Function 03/01/25 Range/Units 01:52 Total Bilirubin 1.0 (0.2-1.3) mg/dL AST 22 (17-59) U/L ALT 13 (6-50) U/L Alkaline Phosphatase 72 (38-126) U/L Albumin 4.0 (3.5-5.1) g/dL Urine 03/01/25 Range/Units 03:09 Urine Color Yellow (Yellow) Urine Appearance Clear (Clear) Urine pH 6.5 (5.0-9.0) Ur Specific [place] 1.016 (1.001-1.035) Urine Protein 1+ H (Negative) mg/dL Urine Glucose (UA) Negative (Negative) mg/dL
[2025-03-01] MEDS: PANTOPRAZOLE 40 MG TABLET PO (12:48)
[2025-03-01] MEDS: METOPROLOL TARTRATE 12.5 MG TABLET PO (12:49)
[2025-03-01 12:55] LABS: Troponin I 0.375 ng/mL (0.000-0.034)
[2025-03-01 13:09] LABS: Vitamin B12 969.0 pg/mL (239-931)
[2025-03-01 15:10] LABS: Partial Thromboplastin Time 82.0 Seconds (22.3-36.8)
[2025-03-01] MEDS: oxyCODONE HCL (*CRX) 2.5 MG TAB IR PO (16:56)
[2025-03-01 20:53] LABS: Partial Thromboplastin Time 112.1 Seconds (22.3-36.8)
[2025-03-01] MEDS: ACETAMINOPHEN 325 MG TABLET 650 MG PO (21:39)
--- NOTE | 2025-03-01 22:15 | ECG_ITS ---
Test Date: 2025-03-01 22:23:39 Measurements Intervals [place] Rate: 81 P: 46 MS: 185 QRS: -11 QRSD: 94 T: 35 QT: 367 QTc: 428 Interpretive Statements SINUS RHYTHM POSSIBLE SEPTAL MYOCARDIAL INFARCTION, AGE INDETERMINATE Electronically Signed On 03-02-2025 10:52:38 [employer] by Vernon Lugo D.O
[2025-03-02] VITALS (20 sets, daily range): BP systolic 109–166; BP diastolic 45–65; PULSE 66–84; RESP 14–18; TEMP 36.9–38; O2SAT 93–98
[2025-03-02 03:21] LABS: Hematocrit 32.2 % (42.0-52.0); Hemoglobin 10.2 g/dL (14.0-18.0); Immature Granulocyte Percent A 0.3 % (0-0.5); Immature Platelet Fraction Pct 3.5 % (0.9-11.2); Lymphocytes Absolute Auto 1.64 K/mm3 (0.9-3.2); Mean Corpuscular HGB Conc 31.7 g/dl (32-36); Mean Corpuscular Hemoglobin 30.8 pg (26-34); Mean Corpuscular Volume 97.3 fl (80-100); Nucleated Red Blood Cells Absolute Auto 0.000 K/mm3 (0.0-0.012); Nucleated Red Blood Cells Perc 0.0 % (0.0-0.2); Platelet Count Result 85 k/mm3 (150-375); Red Blood Count 3.31 M/mm3 (4.6-6.20); White Blood Count 10.3 K/mm3 (4.5-10.0)
[2025-03-02 03:30] LABS: Alanine Aminotransferase 14 U/L (6-50); Albumin Level 3.6 g/dL (3.5-5.1); Alkaline Phosphatase 64 U/L (38-126); Anion Gap 6 mmol/L (4-12); Aspartate Amino Transferase 21 U/L (17-59); Bilirubin,Total 1.0 mg/dL (0.2-1.3); Blood Urea Nitrogen 23 mg/dL (9-20); Calcium 8.5 mg/dL (8.4-10.2); Carbon Dioxide 25 mmol/L (22-30); Chloride 100 mmol/L (98-107); Estimated CRCL calculation 29 ml/min; Estimated Glomerular Filt Rate 42; Glucose 111 mg/dL (65-110); Magnesium 2.2 mg/dL (1.6-2.3); Potassium 4.5 mmol/L (3.4-5.0); Sodium 131 mmol/L (137-145); Total Protein 6.8 g/dL (6.3-8.2)
[2025-03-02 03:48] LABS: Partial Thromboplastin Time 128.1 Seconds (22.3-36.8)
[2025-03-02] MEDS: HEPARIN SOD/D5W 100 UNITS/ML 25,000 UNITS/250 ML BAG 11 UNITS IV CONT (03:52)
[2025-03-02] MEDS: LEVOTHYROXINE SODIUM 112 MCG TABLET PO (05:46)
[2025-03-02] MEDS: LEVOTHYROXINE SODIUM 25 MCG TABLET PO (05:46)
--- NOTE | 2025-03-02 07:59 | P.PNCA_ITS ---
Progress Note: A&P Assessment and Plan (1) Paroxysmal atrial fibrillation: Onset Date: 06/15/17 Code(s): I48.0 - Paroxysmal atrial fibrillation Status: Acute Assessment and Plan: In Sinus rhythm now but has it intermittently.[id number] 3. On heparin drip. On Metoprolol. Stop Metoprolol. Start 03/01/25 Sotalol loading 40 mg BID. Monitor EKG. He has 1 more night for loading. Upon discharge he will be on Eliquis low dose but he will need high dose for PE. (2) Essential (primary) hypertension: Code(s): I10 - Essential (primary) hypertension Status: Acute Assessment and Plan: Stable. (3) Pulmonary embolism: Code(s): I26.99 - Other pulmonary embolism without acute cor pulmonale Status: Acute Assessment and Plan: On heparin drip. Upon discharge he will need high dose Eliquis. (4) Elevated troponin: Code(s): R79.89 - Other specified abnormal findings of blood chemistry Status: Acute Assessment and Plan: Probably due to PE. 03/01/25 Echo: EF 60-65%, grade I diastolic dysfunction (E/e' 12), mild LAE, mild-mod AI, mild TR. Subjective Date/time seen: 03/02/25 07:59 Interval history: Denies chest pain or sob. Had chills. Exam Const: General: cooperative, healthy appearing and comfortable Orientation/consciousness: oriented to person, oriented to place and oriented to time Resp: Auscultation: clear to auscultation bilaterally, no crackles, no rales, no rhonchi and no wheezes Cardio: Rate: regular rate Rhythm: regular rhythm Heart sounds: no murmurs Peripheral pulses: dorsalis pedis present Neuro: General: oriented to person, oriented to place and oriented to time Extrem: Right lower extremity: edema Left lower extremity: no edema Other: Trace edema of right leg Objective Data Vital Signs Vital Signs: Vital Signs - 24 hr 03/01/25 08:17 03/01/25 08:48 03/01/25 10:00 Temperature 99.1 F Pulse Rate 74 81 73 Respiratory Rate 16 22 H Blood Pressure 116/61 99/64 L Pulse Oximetry 96 98 Oxygen Delivery 03/01/25 11:35 03/01/25 12:00 03/01/25 12:00 Temperature 99.6 F Pulse Rate 80 88 88 Respiratory Rate 20 20 Blood Pressure 132/60 Pulse Oximetry 96 96 Oxygen Delivery Room Air 03/01/25 12:49 03/01/25 14:00 03/01/25 15:47 Temperature 99.6 F Pulse Rate 99 92 90 Respiratory Rate 22 H Blood Pressure 138/50 L Pulse Oximetry 96 Oxygen Delivery 03/01/25 16:00 03/01/25 16:00 03/01/25 18:00 Temperature Pulse Rate 83 83 91 Respiratory Rate Blood Pressure Pulse Oximetry Oxygen Delivery Room Air 03/01/25 20:00 03/01/25 20:00 03/01/25 20:00 Temperature 101.5 F H Pulse Rate 93 88 Respiratory Rate 18 Blood Pressure 165/56 H Pulse Oximetry 94 Oxygen Delivery Room Air 03/01/25 20:15 03/01/25 20:47 03/01/25 21:39 Temperature 102.1 F H Pulse Rate 93 Respiratory Rate Blood Pressure Pulse Oximetry 95 Oxygen Delivery Room Air 03/01/25 22:00 03/01/25 22:39 03/01/25 22:42 Temperature 101.0 F H 101.0 F H Pulse Rate 77 Respiratory Rate Blood Pressure Pulse Oximetry Oxygen Delivery 03/02/25 00:00 03/02/25 00:00 03/02/25 00:00 Temperature 100.4 F H Pulse Rate 80 77 Respiratory Rate 16 Blood Pressure 109/45 L Pulse Oximetry 93 Oxygen Delivery Room Air 03/02/25 01:45 03/02/25 02:00 03/02/25 04:00 Temperature 98.5 F 99.6 F Pulse Rate 69 77 Respiratory Rate 16 Blood Pressure 160/61 H Pulse Oximetry 95 Oxygen Delivery 03/02/25 04:00 03/02/25 04:00 03/02/25 06:00 Temperature Pulse Rate 76 81 Respiratory Rate Blood Pressure Pulse Oximetry Oxygen Delivery Room Air 03/02/25 07:34 Temperature 99.7 F H Pulse Rate 83 Respiratory Rate 14 Blood Pressure 164/64 H Pulse Oximetry 95 Oxygen Delivery Intake/Output Intake/Output: Intake & Output 02/27/25 02/28/25 03/01/25 03/02/25 23:59 23:59 23:59 23:59 Intake Total 915.1 684.9 Output Total 300 400 Balance 615.1 284.9 Meds/Results Medications: Active Medications Generic Name Dose Route Start Last Admin Trade Name Freq PRN Reason Stop Dose Admin Acetaminophen 650 mg 03/01/25 07:08 03/01/25 21:39 Acetaminophen 325 Mg Tablet PO 650 mg Q4H PRN Administration Mild Pain (1-3) or Fever Calcium Carbonate 200 mg 03/01/25 11:42 Calcium Carbonate (Tums) 500 Mg (200 Mg Elemental) PO BID PRN Indigestion Heparin Sodium (Porcine) 6,000 units 03/01/25 07:06 Heparin Sodium 5,000 Units/Ml Vial IV PUSH PRN PRN aPTT less than 55 seconds Heparin Sodium (Porcine) 3,000 units 03/01/25 07:06 Heparin Sodium 5,000 Units/Ml Vial IV PUSH PRN PRN aPTT 55 - 70 seconds Heparin Sodium/Dextrose 25,000 units in 250 mls @ 11 mls/hr 03/01/25 07:10 03/02/25 03:52 Heparin Sodium/D5w 100 Units/Ml IV CONT 1,100 units/hr .[id number] [place] 11 mls/hr Protocol Administration 1,100 UNITS/HR Levothyroxine Sodium 112 mcg 03/02/25 06:30 03/02/25 05:46 Levothyroxine Sodium 112 Mcg Tablet PO 112 mcg DAILY@0630 [place] Administration Levothyroxine Sodium 25 mcg 03/02/25 06:30 03/02/25 05:46 Levothyroxine Sodium 25 Mcg Tablet PO 25 mcg DAILY@0630 [place] Administration Loperamide HCl 2 mg 03/01/25 11:42 Loperamide Hcl 2 Mg Capsule PO QID PRN Loose Stool Ondansetron HCl 4 mg 03/01/25 07:08 Ondansetron Inj 4 Mg/2 Ml Vial IV PUSH Q4H PRN Nausea Oxycodone HCl 2.5 mg 03/01/25 09:27 03/01/25 16:56 Oxycodone Hcl (*Crx) 2.5 Mg Tab Ir PO 2.5 mg Q4H PRN Administration Pain Rated 7-10 Pantoprazole Sodium 40 mg 03/01/25 11:45 03/01/25 12:48 Pantoprazole 40 Mg Tablet PO 40 mg DAILY [place] Administration Perflutren Lipid Microsphere 0 ml 03/01/25 08:50 Perflutren Lipid Microspheres 1.5 Ml Vial Diluted To 10 Ml Total Volume IV PUSH 03/04/25 08:50 ONCE PRN adequate visualization Protocol Sotalol HCl 40 mg 03/01/25 21:00 03/01/25 20:15 Sotalol Hcl 40 Mg Tablet PO 40 mg Q12HR [place] Administration Vitamin D 125 mcg 03/02/25 09:00 Cholecalciferol (Vitamin D3) 125 Mcg (5,000 Units) Tablet PO DAILY [facility] Radiology Results: ITS Impressions Chest/Abdomen/Pelvis CTA 03/01/25 07:15 IMPRESSION: 1. Acute pulmonary embolus in right lower lobe. Infarct in right lower lobe. 2. Small right pleural effusion. 3. Dilated common duct, stable from 01/19/2022. Chest X-Ray 03/01/25 08:17 Impression: No acute cardiopulmonary abnormality. Venous Doppler Study 03/01/25 12:50 IMPRESSION: 1. No DVT either leg. Labs Labs: Laboratory Results - last 24 hr 03/01/25 03/01/25 03/01/25 07:44 08:27 08:29 WBC 10.3 H RBC 3.39 L Hgb 10.5 L Hct 32.6 L MCV 96.2 MCH 31.0 MCHC 32.2 RDW 14.6 H Plt Count 89 L MPV 10.5 H Immature Gran % (Auto) 0.5 Neut % (Auto) 78.7 H Lymph % (Auto) 11.4 L [place] % (Auto) 9.2 H Eos % (Auto) 0.1 Baso % (Auto) 0.1 L Lymph # (Auto) 1.17 [place] # (Auto) 1.0 H Eos # (Auto) 0.0 Baso # (Auto) 0.0 Abs Immat Gran (auto) 0.05 H Absolute Neuts (auto) 8.1 H Absolute Nucleated RBC 0.000 Nucleated RBC % 0.0 % Immature Plt Fraction 3.5 APTT Sodium Potassium Chloride Carbon Dioxide Anion Gap BUN Creatinine Estim Creat Clear Calc Estimated GFR Glucose Calcium Magnesium 2.1 Total Bilirubin AST ALT Alkaline Phosphatase Troponin I 0.465 H* Total Protein Albumin Vitamin B12 969.0 H Folate > 20.0 H TSH (Reflex) 1.060 03/01/25 03/01/25 03/01/25 12:23 14:29 20:36 WBC RBC Hgb Hct MCV MCH MCHC RDW Plt Count MPV Immature Gran % (Auto) Neut % (Auto) Lymph % (Auto) [place] % (Auto) Eos % (Auto) Baso % (Auto) Lymph # (Auto) [place] # (Auto) Eos # (Auto) Baso # (Auto) Abs Immat Gran (auto) Absolute Neuts (auto) Absolute Nucleated RBC Nucleated RBC % % Immature Plt Fraction APTT 82.0 H 112.1 H Sodium Potassium Chloride Carbon Dioxide Anion Gap BUN Creatinine Estim Creat Clear Calc Estimated GFR Glucose Calcium Magnesium Total Bilirubin AST ALT Alkaline Phosphatase Troponin I 0.375 H* Total Protein Albumin Vitamin B12 Folate TSH (Reflex) 03/02/25 03:12 WBC 10.3 H RBC 3.31 L Hgb 10.2 L Hct 32.2 L MCV 97.3 MCH 30.8 MCHC 31.7 L RDW 14.6 H Plt Count 85 L MPV 10.7 H Immature Gran % (Auto) 0.3 Neut % (Auto) 72.2 Lymph % (Auto) 15.9 L [place] % (Auto) 11.5 H Eos % (Auto) 0.0 Baso % (Auto) 0.1 L Lymph # (Auto) 1.64 [place] # (Auto) 1.2 H Eos # (Auto) 0.0 Baso # (Auto) 0.0 Abs Immat Gran (auto) 0.03 Absolute Neuts (auto) 7.5 H Absolute Nucleated RBC 0.000 Nucleated RBC % 0.0 % Immature Plt Fraction 3.5 APTT 128.1 H Sodium 131 L Potassium 4.5 Chloride 100 Carbon Dioxide 25 Anion Gap 6 BUN 23 H Creatinine 1.58 H Estim Creat Clear Calc 29 Estimated GFR 42 L Glucose 111 H Calcium 8.5 Magnesium 2.2 Total Bilirubin 1.0 AST 21 ALT 14 Alkaline Phosphatase 64 Troponin I Total Protein 6.8 Albumin 3.6 Vitamin B12 Folate TSH (Reflex)
--- NOTE | 2025-03-02 08:20 | P.PNIM_ITS ---
Progress Note: A&P Assessment and Plan (1) Pulmonary embolism: Code(s): I26.99 - Other pulmonary embolism without acute cor pulmonale Status: Acute Assessment and Plan: - CTA chest with pulmonary embolus of the RLL with associated RLL infarct - echo with no signs of right heart strain - started on heparin gtt - hematology consulted in setting of thrombocytopenia, OK to continue anticoagulation if plts >50K - plan to transition to Eliquis (2) Pneumonia: Code(s): J18.9 - Pneumonia, unspecified organism Status: Acute Assessment and Plan: - complaining of productive cough. Tmax 102.1 last night. - CTA chest with groudglass opacities. RLL rhonchi noted on exam. - WBC 10.3, procal 0.2 - no hypoxia - start Rocephin/azithromycin for suspected CAP - incentive spirometry - blood cultures, urine antigens, sputum culture, viral screen pending (3) Atrial fibrillation with RVR: Code(s): I48.91 - Unspecified atrial fibrillation Status: Acute Assessment and Plan: - no prior history documented - HR 150s on arrival to ED. EKG appeared to be Aflutter with RVR -received IV metoprolol in the ED with improvement. Repeat EKG with atrial fibrillation with controlled rate. - echo with EF 60-65%, grade I diastolic dysfunction (E/e' 12), mild LAE, mild- mod AI, mild TR. - TSH and mag WNL - cardio following - stopped metoprolol, started sotalol load (4) Non-ST elevation [place] (NSTEMI): Code(s): I21.4 - Non-ST elevation (NSTEMI) myocardial infarction Status: Acute Assessment and Plan: - EKG Afib with controlled rate, no acute ST changes - trop I 0.286, 0.402, 0.465, 0.375 - likely demand ischemia in setting of Afib with RVR and renal insufficiency - cardio following (5) Thrombocytopenia: Code(s): D69.6 - Thrombocytopenia, unspecified Status: Acute Assessment and Plan: - Plts 89, near baseline - hematology consulted due to need anticoagulation , OK to anticoagulate if platelets >50K (6) CKD (chronic kidney disease): Code(s): N18.9 - Chronic kidney disease, unspecified Status: Acute Assessment and Plan: - Cr 1.58, uptrending slightly - encourage PO intake - avoid nephrotoxins (7) Hypothyroid: Code(s): E03.9 - Hypothyroidism, unspecified Status: Acute Assessment and Plan: - TSH WNL - continue home Synthroid Plan DVT prophylaxis: heparin gtt Code status: DNR - confirmed on admission Dispo: likely discharge back to [facility] in 2-3 days Subjective Date/time seen: 03/02/25 08:20 Interval history: Patient seen and examined at bedside. Complaining of productive cough, pleuritic chest pain, chills. Was febrile last night. Review of Systems Review of Systems: All systems reviewed & are unremarkable except as noted in HPI and below Exam Narrative: General: NAD, mildly ill-appearing Eyes: EOMI ENT: neck supple Cardiovascular: regular rate and rhythm Respiratory: RLL rhonchi, respirations even and unlabored on RA Gastrointestinal: Soft, non tender Genitourinary: no suprapubic tenderness Musculoskeletal: No edema Skin: warm, dry Neuro: Alert. Psych: Mood appropriate Objective Data Vital Signs Vital Signs: Vital Signs - 24 hr 03/01/25 08:48 03/01/25 10:00 03/01/25 11:35 Temperature 99.1 F 99.6 F Pulse Rate 81 73 80 Respiratory Rate 22 H 20 Blood Pressure 99/64 L 132/60 Pulse Oximetry 98 96 Oxygen Delivery 03/01/25 12:00 03/01/25 12:00 03/01/25 12:49 Temperature Pulse Rate 88 88 99 Respiratory Rate 20 Blood Pressure Pulse Oximetry 96 Oxygen Delivery Room Air 03/01/25 14:00 03/01/25 15:47 03/01/25 16:00 Temperature 99.6 F Pulse Rate 92 90 83 Respiratory Rate 22 H Blood Pressure 138/50 L Pulse Oximetry 96 Oxygen Delivery 03/01/25 16:00 03/01/25 18:00 03/01/25 20:00 Temperature 101.5 F H Pulse Rate 83 91 93 Respiratory Rate 18 Blood Pressure 165/56 H Pulse Oximetry 94 Oxygen Delivery Room Air 03/01/25 20:00 03/01/25 20:00 03/01/25 20:15 Temperature Pulse Rate 88 93 Respiratory Rate Blood Pressure Pulse Oximetry Oxygen Delivery Room Air 03/01/25 20:47 03/01/25 21:39 03/01/25 22:00 Temperature 102.1 F H Pulse Rate 77 Respiratory Rate Blood Pressure Pulse Oximetry 95 Oxygen Delivery Room Air 03/01/25 22:39 03/01/25 22:42 03/02/25 00:00 Temperature 101.0 F H 101.0 F H 100.4 F H Pulse Rate 80 Respiratory Rate 16 Blood Pressure 109/45 L Pulse Oximetry 93 Oxygen Delivery 03/02/25 00:00 03/02/25 00:00 03/02/25 01:45 Temperature 98.5 F Pulse Rate 77 Respiratory Rate Blood Pressure Pulse Oximetry Oxygen Delivery Room Air 03/02/25 02:00 03/02/25 04:00 03/02/25 04:00 Temperature 99.6 F Pulse Rate 69 77 Respiratory Rate 16 Blood Pressure 160/61 H Pulse Oximetry 95 Oxygen Delivery Room Air 03/02/25 04:00 03/02/25 06:00 03/02/25 07:34 Temperature 99.7 F H Pulse Rate 76 81 83 Respiratory Rate 14 Blood Pressure 164/64 H Pulse Oximetry 95 Oxygen Delivery Intake/Output Intake/Output: Intake & Output 02/27/25 02/28/25 03/01/25 03/02/25 23:59 23:59 23:59 23:59 Intake Total 915.1 684.9 Output Total 300 400 Balance 615.1 284.9 Meds/Results Medications: Active Medications Generic Name Dose Route Start Last Admin Trade Name Freq PRN Reason Stop Dose Admin Acetaminophen 650 mg 03/01/25 07:08 03/01/25 21:39 Acetaminophen 325 Mg Tablet PO 650 mg Q4H PRN Administration Mild Pain (1-3) or Fever Calcium Carbonate 200 mg 03/01/25 11:42 Calcium Carbonate (Tums) 500 Mg (200 Mg Elemental) PO BID PRN Indigestion Heparin Sodium (Porcine) 6,000 units 03/01/25 07:06 Heparin Sodium 5,000 Units/Ml Vial IV PUSH PRN PRN aPTT less than 55 seconds Heparin Sodium (Porcine) 3,000 units 03/01/25 07:06 Heparin Sodium 5,000 Units/Ml Vial IV PUSH PRN PRN aPTT 55 - 70 seconds Heparin Sodium/Dextrose 25,000 units in 250 mls @ 11 mls/hr 03/01/25 07:10 03/02/25 03:52 Heparin Sodium/D5w 100 Units/Ml IV CONT 1,100 units/hr .[id number] [place] 11 mls/hr Protocol Administration 1,100 UNITS/HR Levothyroxine Sodium 112 mcg 03/02/25 06:30 03/02/25 05:46 Levothyroxine Sodium 112 Mcg Tablet PO 112 mcg DAILY@0630 REPLACED BY [facility] Administration Levothyroxine Sodium 25 mcg 03/02/25 06:30 03/02/25 05:46 Levothyroxine Sodium 25 Mcg Tablet PO 25 mcg DAILY@0630 REPLACED BY [facility] Administration Loperamide HCl 2 mg 03/01/25 11:42 Loperamide Hcl 2 Mg Capsule PO QID PRN Loose Stool Ondansetron HCl 4 mg 03/01/25 07:08 Ondansetron Inj 4 Mg/2 Ml Vial IV PUSH Q4H PRN Nausea Oxycodone HCl 2.5 mg 03/01/25 09:27 03/01/25 16:56 Oxycodone Hcl (*Crx) 2.5 Mg Tab Ir PO 2.5 mg Q4H PRN Administration Pain Rated 7-10 Pantoprazole Sodium 40 mg 03/01/25 11:45 03/01/25 12:48 Pantoprazole 40 Mg Tablet PO 40 mg DAILY [place] Administration Perflutren Lipid Microsphere 0 ml 03/01/25 08:50 Perflutren Lipid Microspheres 1.5 Ml Vial Diluted To 10 Ml Total Volume IV PUSH 03/04/25 08:50 ONCE PRN adequate visualization Protocol Sotalol HCl 40 mg 03/01/25 21:00 03/01/25 20:15 Sotalol Hcl 40 Mg Tablet PO 40 mg Q12HR REPLACED BY [facility] Administration Vitamin D 125 mcg 03/02/25 09:00 Cholecalciferol (Vitamin D3) 125 Mcg (5,000 Units) Tablet PO DAILY REPLACED BY [facility] Radiology Results: ITS Impressions Chest/Abdomen/Pelvis CTA 03/01/25 07:15 IMPRESSION: 1. Acute pulmonary embolus in right lower lobe. Infarct in right lower lobe. 2. Small right pleural effusion. 3. Dilated common duct, stable from 01/19/2022. Chest X-Ray 03/01/25 08:17 Impression: No acute cardiopulmonary abnormality. Venous Doppler Study 03/01/25 12:50 IMPRESSION: 1. No DVT either leg. Labs Labs: Laboratory Results - last 24 hr 03/01/25 03/01/25 03/01/25 08:27 08:29 12:23 WBC RBC Hgb Hct MCV MCH MCHC RDW Plt Count MPV Immature Gran % (Auto) Neut % (Auto) Lymph % (Auto) [place] % (Auto) Eos % (Auto) Baso % (Auto) Lymph # (Auto) [place] # (Auto) Eos # (Auto) Baso # (Auto) Abs Immat Gran (auto) Absolute Neuts (auto) Absolute Nucleated RBC Nucleated RBC % % Immature Plt Fraction APTT Sodium Potassium Chloride Carbon Dioxide Anion Gap BUN Creatinine Estim Creat Clear Calc Estimated GFR Glucose Calcium Magnesium 2.1 Total Bilirubin AST ALT Alkaline Phosphatase Troponin I 0.465 H* 0.375 H* Total Protein Albumin Vitamin B12 969.0 H Folate > 20.0 H TSH (Reflex) 1.060 03/01/25 03/01/25 03/02/25 14:29 20:36 03:12 WBC 10.3 H RBC 3.31 L Hgb 10.2 L Hct 32.2 L MCV 97.3 MCH 30.8 MCHC 31.7 L RDW 14.6 H Plt Count 85 L MPV 10.7 H Immature Gran % (Auto) 0.3 Neut % (Auto) 72.2 Lymph % (Auto) 15.9 L [place] % (Auto) 11.5 H Eos % (Auto) 0.0 Baso % (Auto) 0.1 L Lymph # (Auto) 1.64 [place] # (Auto) 1.2 H Eos # (Auto) 0.0 Baso # (Auto) 0.0 Abs Immat Gran (auto) 0.03 Absolute Neuts (auto) 7.5 H Absolute Nucleated RBC 0.000 Nucleated RBC % 0.0 % Immature Plt Fraction 3.5 APTT 82.0 H 112.1 H 128.1 H Sodium 131 L Potassium 4.5 Chloride 100 Carbon Dioxide 25 Anion Gap 6 BUN 23 H Creatinine 1.58 H Estim Creat Clear Calc 29 Estimated GFR 42 L Glucose 111 H Calcium 8.5 Magnesium 2.2 Total Bilirubin 1.0 AST 21 ALT 14 Alkaline Phosphatase 64 Troponin I Total Protein 6.8 Albumin 3.6 Vitamin B12 Folate TSH (Reflex) Quality VTE Prophylaxis VTE prophylaxis: pharmacologic ordered
[2025-03-02] MEDS: CHOLECALCIFEROL (VITAMIN D3) 125 MCG (5,000 UNITS) TABLET PO (09:09)
[2025-03-02] MEDS: ACETAMINOPHEN 325 MG TABLET 650 MG PO ×2 (09:11→15:23)
[2025-03-02] MEDS: PANTOPRAZOLE 40 MG TABLET PO (09:15)
[2025-03-02] MEDS: CALCIUM CARBONATE (TUMS) 500 MG (200 MG ELEMENTAL) PO (09:15)
[2025-03-02 09:32] LABS: Procalcitonin 0.2 ng/mL
--- NOTE | 2025-03-02 09:46 | P.PNONC_ITS ---
Progress Note: A&P Assessment and Plan (1) Pulmonary embolism: Code(s): I26.99 - Other pulmonary embolism without acute cor pulmonale Status: Acute Assessment and Plan: Recommend changing from iv heparin to Eliquis. Begin Eliquis at time heparin is discontinued. Eliquis 10 mg bid x 7 days followed by 5 mg bid No dose adjustment needed for patient's degree of renal insufficiency. OK to anticoagulate as long as plt count > 50k (2) Atrial fibrillation with RVR: Code(s): I48.91 - Unspecified atrial fibrillation Status: Acute (3) Non-ST elevation [place] (NSTEMI): Code(s): I21.4 - Non-ST elevation (NSTEMI) myocardial infarction Status: Acute (4) Thrombocytopenia: Code(s): D69.6 - Thrombocytopenia, unspecified Status: Acute Assessment and Plan: Counts appear stable Review of peripheral smear showed no plt clumping. - Lab results pending - Vitamin B12, folate, copper (5) CKD (chronic kidney disease): Code(s): N18.9 - Chronic kidney disease, unspecified Status: Acute Assessment and Plan: At baseline (6) Hypothyroid: Code(s): E03.9 - Hypothyroidism, unspecified Status: Acute Assessment and Plan: - TSH WNL - continue home Synthroid Subjective Date/time seen: 03/02/25 09:46 Interval history: Patient reports feeling well. Nephew present at bedside but had just arrived. Labs: (03/01/25): WBC 9.7, Hgb 11.7, Hct 36.1, Plt 89 WBC 10.3, Hgb 10.5, Hct 32.6, Plt 89 (03/02/25): WBC 10.3, Hgb 10.2, Hct 32.2, Plt 85, BUN 23, crea 1.58, GFR 42 IMPRESSION/PLAN PE secondary to A fib and wheelchair bound - Okay to anticoagulate as long as plt count > 50k Recommend DOAC Thrombocytopenia DD: DIC, ITP, MDS, nutrient deficiency, pseudothrombocytopenia, drug induced Review of peripheral smear showed no plt clumping. - Lab results pending - Vitamin B12, folate, copper Elevated PT and PTT DD: liver disease, acute DIC, Vitamin K deficiency, acquired factor deficiencies. Observe Elevated D-dimer secondary to recent PE. Observe Recommend changing from iv heparin to Eliquis. Begin Eliquis at time heparin is discontinued. Eliquis 10 mg bid x 7 days followed by 5 mg bid No dose adjustment needed for patient's degree of renal insufficiency. Please schedule f/u with Dr. Marx for one month after discharge. Thank you Review of Systems Constitutional Comments: Patient reports feeling well. Respiratory Comments: Still alittle pain occasionally while breathing. Musculoskeletal Comments: Legs generally ache but this is nothing new Exam Const: Other: Well appearing male. Appears more alert than yesterday. Eyes: Other: Anicteric sclerae Resp: Other: Bilateral air entry. No wheezing Cardio: Other: A fib Skin: Other: Scattered bruises Neuro: Other: Alert and oriented. Grossly nonfocal. Extrem: Other: Only very minimal edema RLE; no edema LLE. This is not new per patient Psych: Other: Normal affect Objective Data Vital Signs Vital Signs: Vital Signs - 24 hr 03/01/25 10:00 03/01/25 11:35 03/01/25 12:00 Temperature 37.6 C Pulse Rate 73 80 88 Respiratory Rate 20 20 Blood Pressure 132/60 Pulse Oximetry 96 96 Oxygen Delivery Room Air 03/01/25 12:00 03/01/25 12:49 03/01/25 14:00 Temperature Pulse Rate 88 99 92 Respiratory Rate Blood Pressure Pulse Oximetry Oxygen Delivery 03/01/25 15:47 03/01/25 16:00 03/01/25 16:00 Temperature 37.6 C Pulse Rate 90 83 83 Respiratory Rate 22 H Blood Pressure 138/50 L Pulse Oximetry 96 Oxygen Delivery Room Air 03/01/25 18:00 03/01/25 20:00 03/01/25 20:00 Temperature 38.6 C H Pulse Rate 91 93 Respiratory Rate 18 Blood Pressure 165/56 H Pulse Oximetry 94 Oxygen Delivery Room Air 03/01/25 20:00 03/01/25 20:15 03/01/25 20:47 Temperature Pulse Rate 88 93 Respiratory Rate Blood Pressure Pulse Oximetry 95 Oxygen Delivery Room Air 03/01/25 21:39 03/01/25 22:00 03/01/25 22:39 Temperature 38.9 C H 38.3 C H Pulse Rate 77 Respiratory Rate Blood Pressure Pulse Oximetry Oxygen Delivery 03/01/25 22:42 03/02/25 00:00 03/02/25 00:00 Temperature 38.3 C H 38.0 C H Pulse Rate 80 Respiratory Rate 16 Blood Pressure 109/45 L Pulse Oximetry 93 Oxygen Delivery Room Air 03/02/25 00:00 03/02/25 01:45 03/02/25 02:00 Temperature 36.9 C Pulse Rate 77 69 Respiratory Rate Blood Pressure Pulse Oximetry Oxygen Delivery 03/02/25 04:00 03/02/25 04:00 03/02/25 04:00 Temperature 37.6 C Pulse Rate 77 76 Respiratory Rate 16 Blood Pressure 160/61 H Pulse Oximetry 95 Oxygen Delivery Room Air 03/02/25 06:00 03/02/25 07:34 03/02/25 09:09 Temperature 37.6 C H Pulse Rate 81 83 84 Respiratory Rate 14 Blood Pressure 164/64 H Pulse Oximetry 95 Oxygen Delivery 03/02/25 09:11 Temperature 37.6 C H Pulse Rate Respiratory Rate Blood Pressure Pulse Oximetry Oxygen Delivery Intake/Output Intake/Output: Intake & Output 02/27/25 02/28/25 03/01/25 03/02/25 23:59 23:59 23:59 23:59 Intake Total 915.1 684.9 Output Total 300 400 Balance 615.1 284.9 Meds/Results Medications: Active Medications Generic Name Dose Route Start Last Admin Trade Name Freq PRN Reason Stop Dose Admin Acetaminophen 650 mg 03/01/25 07:08 03/02/25 09:11 Acetaminophen 325 Mg Tablet PO 650 mg Q4H PRN Administration Mild Pain (1-3) or Fever Apixaban 10 mg 03/02/25 09:25 Apixaban 5 Mg Tablet PO 03/08/25 21:01 Q12HR [place] Apixaban 5 mg 03/09/25 09:00 Apixaban 5 Mg Tablet PO Q12HR [place] Calcium Carbonate 200 mg 03/01/25 11:42 03/02/25 09:15 Calcium Carbonate (Tums) 500 Mg (200 Mg Elemental) PO 200 mg BID PRN Administration Indigestion Doxycycline Hyclate 100 mg 03/02/25 09:25 Doxycycline Hyclate 100 Mg Tablet PO Q12HR [place] Guaifenesin 600 mg 03/02/25 09:25 Guaifenesin 12 Hr 600 Mg Tabcr PO Q12HR [facility] Ceftriaxone Sodium 1 gm/ 50 mls @ 100 mls/hr 03/02/25 10:00 Sodium Chloride IVPB Q24H [facility] Levothyroxine Sodium 112 mcg 03/02/25 06:30 03/02/25 05:46 Levothyroxine Sodium 112 Mcg Tablet PO 112 mcg DAILY@0630 [facility] Administration Levothyroxine Sodium 25 mcg 03/02/25 06:30 03/02/25 05:46 Levothyroxine Sodium 25 Mcg Tablet PO 25 mcg DAILY@0630 [facility] Administration Loperamide HCl 2 mg 03/01/25 11:42 Loperamide Hcl 2 Mg Capsule PO QID PRN Loose Stool Ondansetron HCl 4 mg 03/01/25 07:08 Ondansetron Inj 4 Mg/2 Ml Vial IV PUSH Q4H PRN Nausea Oxycodone HCl 2.5 mg 03/01/25 09:27 03/01/25 16:56 Oxycodone Hcl (*Crx) 2.5 Mg Tab Ir PO 2.5 mg Q4H PRN Administration Pain Rated 7-10 Pantoprazole Sodium 40 mg 03/01/25 11:45 03/02/25 09:15 Pantoprazole 40 Mg Tablet PO 40 mg DAILY [place] Administration Perflutren Lipid Microsphere 0 ml 03/01/25 08:50 Perflutren Lipid Microspheres 1.5 Ml Vial Diluted To 10 Ml Total Volume IV PUSH 03/04/25 08:50 ONCE PRN adequate visualization Protocol Sotalol HCl 40 mg 03/01/25 21:00 03/02/25 09:09 Sotalol Hcl 40 Mg Tablet PO 40 mg Q12HR [place] Administration Vitamin D 125 mcg 03/02/25 09:00 03/02/25 09:09 Cholecalciferol (Vitamin D3) 125 Mcg (5,000 Units) Tablet PO 125 mcg DAILY [place] Administration Radiology Results: ITS Impressions Chest/Abdomen/Pelvis CTA 03/01/25 07:15 IMPRESSION: 1. Acute pulmonary embolus in right lower lobe. Infarct in right lower lobe. 2. Small right pleural effusion. 3. Dilated common duct, stable from 01/19/2022. Chest X-Ray 03/01/25 08:17 Impression: No acute cardiopulmonary abnormality. Venous Doppler Study 03/01/25 12:50 IMPRESSION: 1. No DVT either leg. Labs Labs: Laboratory Results - last 24 hr 03/01/25 03/01/25 03/01/25 08:27 08:29 12:23 WBC RBC Hgb Hct MCV MCH MCHC RDW Plt Count MPV Immature Gran % (Auto) Neut % (Auto) Lymph % (Auto) [place] % (Auto) Eos % (Auto) Baso % (Auto) Lymph # (Auto) [place] # (Auto) Eos # (Auto) Baso # (Auto) Abs Immat Gran (auto) Absolute Neuts (auto) Absolute Nucleated RBC Nucleated RBC % % Immature Plt Fraction APTT Sodium Potassium Chloride Carbon Dioxide Anion Gap BUN Creatinine Estim Creat Clear Calc Estimated GFR Glucose Calcium Magnesium Total Bilirubin AST ALT Alkaline Phosphatase Troponin I 0.375 H* Total Protein Albumin Vitamin B12 969.0 H Folate > 20.0 H Procalcitonin TSH (Reflex) 1.060 03/01/25 03/01/25 03/02/25 14:29 20:36 03:07 WBC RBC Hgb Hct MCV MCH MCHC RDW Plt Count MPV Immature Gran % (Auto) Neut % (Auto) Lymph % (Auto) [place] % (Auto) Eos % (Auto) Baso % (Auto) Lymph # (Auto) [place] # (Auto) Eos # (Auto) Baso # (Auto) Abs Immat Gran (auto) Absolute Neuts (auto) Absolute Nucleated RBC Nucleated RBC % % Immature Plt Fraction APTT 82.0 H 112.1 H Sodium Potassium Chloride Carbon Dioxide Anion Gap BUN Creatinine Estim Creat Clear Calc Estimated GFR Glucose Calcium Magnesium Total Bilirubin AST ALT Alkaline Phosphatase Troponin I Total Protein Albumin Vitamin B12 Folate Procalcitonin 0.2 TSH (Reflex) 03/02/25 03:12 WBC 10.3 H RBC 3.31 L Hgb 10.2 L Hct 32.2 L MCV 97.3 MCH 30.8 MCHC 31.7 L RDW 14.6 H Plt Count 85 L MPV 10.7 H Immature Gran % (Auto) 0.3 Neut % (Auto) 72.2 Lymph % (Auto) 15.9 L [place] % (Auto) 11.5 H Eos % (Auto) 0.0 Baso % (Auto) 0.1 L Lymph # (Auto) 1.64 [place] # (Auto) 1.2 H Eos # (Auto) 0.0 Baso # (Auto) 0.0 Abs Immat Gran (auto) 0.03 Absolute Neuts (auto) 7.5 H Absolute Nucleated RBC 0.000 Nucleated RBC % 0.0 % Immature Plt Fraction 3.5 APTT 128.1 H Sodium 131 L Potassium 4.5 Chloride 100 Carbon Dioxide 25 Anion Gap 6 BUN 23 H Creatinine 1.58 H Estim Creat Clear Calc 29 Estimated GFR 42 L Glucose 111 H Calcium 8.5 Magnesium 2.2 Total Bilirubin 1.0 AST 21 ALT 14 Alkaline Phosphatase 64 Troponin I Total Protein 6.8 Albumin 3.6 Vitamin B12 Folate Procalcitonin TSH (Reflex)
[2025-03-02] MEDS: guaiFENesin 12 HR 600 MG TABCR PO ×2 (10:24→20:35)
[2025-03-02] MEDS: DOXYCYCLINE HYCLATE 100 MG TABLET PO ×2 (10:24→20:35)
[2025-03-02] MEDS: APIXABAN 5 MG TABLET 10 MG PO ×2 (10:24→20:35)
--- NOTE | 2025-03-02 10:45 | ECG_ITS ---
Test Date: 2025-03-02 11:32:24 Measurements Intervals [place] Rate: 72 P: 53 MN: 177 QRS: -9 QRSD: 96 T: 35 QT: 401 QTc: 440 Interpretive Statements SINUS RHYTHM Electronically Signed On 03-03-2025 09:54:55 HEARING [employer]ID DISPENSER by Vernon Lugo D.O
[2025-03-02] MEDS: cefTRIAXone 1 GM in SODIUM CHLORIDE 0.9% IV 50 ML 100 ML IVPB (10:50)
--- NOTE | 2025-03-02 11:05 | PC.NURSE ---
On 03/02/25, the student, [Mary Anne Malin ], provided care and completed [facility] documentation on this patient. I have reviewed the student's documentation and agree with the findings.
[2025-03-02 13:32] LABS: Influenza A QL RT-PCR Negative (Negative); Influenza B QL RT-PCR Negative (Negative); RSV RNA, RT-PCR Negative (Negative); SARS-CoV-2 RNA PCR Negative (Negative)
--- NOTE | 2025-03-02 21:36 | ECG_ITS ---
Test Date: 2025-03-02 21:43:47 Measurements Intervals [place] Rate: 73 P: 43 SD: 181 QRS: -10 QRSD: 93 T: 41 QT: 381 QTc: 422 Interpretive Statements SINUS RHYTHM SEPTAL MYOCARDIAL INFARCTION PROBABLY OLD Electronically Signed On 03-03-2025 09:58:05 MOTOR GRADER OPERATOR by Vernon Lugo D.O
[2025-03-03] VITALS (13 sets, daily range): BP systolic 145–164; BP diastolic 54–59; PULSE 59–80; RESP 14–17; TEMP 37.2–38.1; O2SAT 93–97
[2025-03-03 04:47] LABS: Hematocrit 30.9 % (42.0-52.0); Hemoglobin 10.0 g/dL (14.0-18.0); Immature Granulocyte Percent A 0.3 % (0-0.5); Immature Platelet Fraction Pct 4.6 % (0.9-11.2); Lymphocytes Absolute Auto 1.09 K/mm3 (0.9-3.2); Mean Corpuscular HGB Conc 32.4 g/dl (32-36); Mean Corpuscular Hemoglobin 30.7 pg (26-34); Mean Corpuscular Volume 94.8 fl (80-100); Nucleated Red Blood Cells Absolute Auto 0.000 K/mm3 (0.0-0.012); Nucleated Red Blood Cells Perc 0.0 % (0.0-0.2); Platelet Count Result 91 k/mm3 (150-375); Red Blood Count 3.26 M/mm3 (4.6-6.20); White Blood Count 9.1 K/mm3 (4.5-10.0)
[2025-03-03 05:04] LABS: Alanine Aminotransferase 15 U/L (6-50); Albumin Level 3.4 g/dL (3.5-5.1); Alkaline Phosphatase 75 U/L (38-126); Anion Gap 8 mmol/L (4-12); Aspartate Amino Transferase 26 U/L (17-59); Bilirubin,Total 0.8 mg/dL (0.2-1.3); Blood Urea Nitrogen 22 mg/dL (9-20); Calcium 8.4 mg/dL (8.4-10.2); Carbon Dioxide 23 mmol/L (22-30); Chloride 100 mmol/L (98-107); Estimated CRCL calculation 31 ml/min; Estimated Glomerular Filt Rate 45; Glucose 93 mg/dL (65-110); Magnesium 2.2 mg/dL (1.6-2.3); Potassium 4.2 mmol/L (3.4-5.0); Sodium 131 mmol/L (137-145); Total Protein 6.6 g/dL (6.3-8.2)
[2025-03-03 05:23] LABS: Anisocytosis 1+; Microcytosis 1+ (NORMAL)
[2025-03-03 05:24] LABS: Ovalocytes Occasional; Schistocytes None Seen
[2025-03-03] MEDS: LEVOTHYROXINE SODIUM 112 MCG TABLET PO (06:11)
[2025-03-03] MEDS: LEVOTHYROXINE SODIUM 25 MCG TABLET PO (06:11)
--- NOTE | 2025-03-03 07:45 | P.PNIM_ITS ---
Progress Note: A&P Assessment and Plan (1) Pulmonary embolism: Code(s): I26.99 - Other pulmonary embolism without acute cor pulmonale Status: Acute Assessment and Plan: - CTA chest with pulmonary embolus of the RLL with associated RLL infarct - echo with no signs of right heart strain - started on heparin gtt, transitioned to Eliquis - hematology consulted in setting of thrombocytopenia, OK to continue ant icoagulation if plts >50K (2) Pneumonia: Code(s): J18.9 - Pneumonia, unspecified organism Status: Acute Assessment and Plan: - complaining of productive cough. Tmax 102.1. Still with low grade fever this AM. - CTA chest with groudglass opacities. RLL rhonchi noted on exam. - WBC 9.1, procal 0.2 - no hypoxia - viral screen negative - continue Rocephin/azithromycin for suspected CAP - incentive spirometry - blood cultures, urine antigens, sputum culture pending (3) Atrial fibrillation with RVR: Code(s): I48.91 - Unspecified atrial fibrillation Status: Acute Assessment and Plan: - no prior history documented - HR 150s on arrival to ED. EKG appeared to be Aflutter with RVR -received IV metoprolol in the ED with improvement. Repeat EKG with atrial fibrillation with controlled rate. - echo with EF 60-65%, grade I diastolic dysfunction (E/e' 12), mild LAE, mild- mod AI, mild TR. - TSH and mag WNL - cardio following - stopped metoprolol, started sotalol load. Patient is now in NSR. (4) Non-ST elevation CA (NSTEMI): Code(s): I21.4 - Non-ST elevation (NSTEMI) myocardial infarction Status: Acute Assessment and Plan: - EKG Afib with controlled rate, no acute ST changes - trop I 0.286, 0.402, 0.465, 0.375 - likely demand ischemia in setting of Afib with RVR and renal insufficiency - cardio following (5) Thrombocytopenia: Code(s): D69.6 - Thrombocytopenia, unspecified Status: Acute Assessment and Plan: - Plts 91, near baseline - hematology consulted due to need anticoagulation , OK to anticoagulate if platelets >50K (6) CKD (chronic kidney disease): Code(s): N18.9 - Chronic kidney disease, unspecified Status: Acute Assessment and Plan: - Cr 1.46, stable - encourage PO intake - avoid nephrotoxins (7) Hypothyroid: Code(s): E03.9 - Hypothyroidism, unspecified Status: Acute Assessment and Plan: - TSH WNL - continue home Synthroid (8) Generalized weakness: Code(s): R53.1 - Weakness Status: Acute Assessment and Plan: -Notified by nursing and PT for concerns of stiffness and spasticity. - Patient states he has felt stiff for at least 1-2 weeks. Apparently he was once ambulatory at the half-way, but hasn't been for the last several days. He reports chronic issues with his hips and knees. - Neuro exam with no focal deficits, strength 5/5 in BUEs, 4/5 in BLEs. Bilateral intention tremors noted which patient states are ongoing. Patient has documentation of Parkinson's disease, but no neuro notes to review and patient denies this diagnosis. - suspect underlying infection is contributing to weakness, less likely a neurologic process. Offered further imaging including a head CT to further evaluate. Patient politely declined further work-up and wants to focus on comfort measures. Plan DVT prophylaxis: [place] Code status: DNR - confirmed on admission Dispo: likely discharge back to [facility] in 2-3 days Subjective Date/time seen: 03/03/25 07:45 Interval history: Patient seen and examined at bedside. Still having intermittent low grade fevers and chills. Pain and cough improved. Review of Systems Review of Systems: All systems reviewed & are unremarkable except as noted in HPI and below Exam Narrative: General: NAD, mildly ill-appearing Eyes: EOMI ENT: neck supple Cardiovascular: regular rate and rhythm Respiratory: RLL rhonchi, respirations even and unlabored on RA Gastrointestinal: Soft, non tender Genitourinary: no suprapubic tenderness Musculoskeletal: No edema Skin: warm, dry Neuro: Alert. Psych: Mood appropriate Objective Data Vital Signs Vital Signs: Vital Signs - 24 hr 03/02/25 08:00 03/02/25 08:00 03/02/25 09:09 Temperature Pulse Rate 76 84 Respiratory Rate Blood Pressure Pulse Oximetry Oxygen Delivery Room Air 03/02/25 09:11 03/02/25 10:00 03/02/25 12:00 Temperature 99.7 F H 98.7 F Pulse Rate 71 73 Respiratory Rate 18 Blood Pressure 126/64 Pulse Oximetry 95 Oxygen Delivery 03/02/25 12:00 03/02/25 12:00 03/02/25 13:55 Temperature Pulse Rate 75 Respiratory Rate Blood Pressure Pulse Oximetry Oxygen Delivery Room Air Room Air 03/02/25 14:00 03/02/25 14:11 03/02/25 15:23 Temperature 100.1 F H Pulse Rate 75 Respiratory Rate Blood Pressure Pulse Oximetry Oxygen Delivery Room Air 03/02/25 15:28 03/02/25 16:00 03/02/25 16:00 Temperature 100.1 F H Pulse Rate 74 66 Respiratory Rate 16 Blood Pressure 141/65 H Pulse Oximetry 97 Oxygen Delivery Room Air 03/02/25 18:00 03/02/25 20:00 03/02/25 20:00 Temperature 99.9 F H Pulse Rate 69 76 Respiratory Rate 15 Blood Pressure 166/61 H Pulse Oximetry 98 Oxygen Delivery Room Air 03/02/25 20:00 03/02/25 20:36 03/02/25 21:36 Temperature Pulse Rate 70 78 Respiratory Rate Blood Pressure Pulse Oximetry 98 Oxygen Delivery Room Air 03/02/25 22:00 03/03/25 00:00 03/03/25 00:00 Temperature 99.0 F Pulse Rate 69 72 Respiratory Rate 14 Blood Pressure 152/56 H Pulse Oximetry 95 Oxygen Delivery Room Air 03/03/25 00:00 03/03/25 02:00 03/03/25 04:00 Temperature 100.6 F H Pulse Rate 73 67 76 Respiratory Rate 17 Blood Pressure 160/58 H Pulse Oximetry 93 Oxygen Delivery 03/03/25 04:00 03/03/25 04:00 03/03/25 06:00 Temperature Pulse Rate 69 74 Respiratory Rate Blood Pressure Pulse Oximetry Oxygen Delivery Room Air Intake/Output Intake/Output: Intake & Output 02/28/25 03/01/25 03/02/25 03/03/25 23:59 23:59 23:59 23:59 Intake Total 915.1 1127.3 75 Output Total 300 750 325 Balance 615.1 377.3 -250 Meds/Results Medications: Active Medications Generic Name Dose Route Start Last Admin Trade Name Freq PRN Reason Stop Dose Admin Acetaminophen 650 mg 03/01/25 07:08 03/02/25 15:23 Acetaminophen 325 Mg Tablet PO 650 mg Q4H PRN Administration Mild Pain (1-3) or Fever Apixaban 10 mg 03/02/25 09:25 03/02/25 20:35 Apixaban 5 Mg Tablet PO 03/08/25 21:01 10 mg Q12HR [place] Administration Apixaban 5 mg 03/09/25 09:00 Apixaban 5 Mg Tablet PO Q12HR [facility] Calcium Carbonate 200 mg 03/01/25 11:42 03/02/25 09:15 Calcium Carbonate (Tums) 500 Mg (200 Mg Elemental) PO 200 mg BID PRN Administration Indigestion Doxycycline Hyclate 100 mg 03/02/25 09:25 03/02/25 20:35 Doxycycline Hyclate 100 Mg Tablet PO 100 mg Q12HR [place] Administration Guaifenesin 600 mg 03/02/25 09:25 03/02/25 20:35 Guaifenesin 12 Hr 600 Mg Tabcr PO 600 mg Q12HR [place] Administration Ceftriaxone Sodium 1 gm/ 50 mls @ 100 mls/hr 03/02/25 10:00 03/02/25 11:20 Sodium Chloride IVPB Infused Q24H [facility] Infusion Levothyroxine Sodium 112 mcg 03/02/25 06:30 03/03/25 06:11 Levothyroxine Sodium 112 Mcg Tablet PO 112 mcg DAILY@0630 [place] Administration Levothyroxine Sodium 25 mcg 03/02/25 06:30 03/03/25 06:11 Levothyroxine Sodium 25 Mcg Tablet PO 25 mcg DAILY@0630 [place] Administration Loperamide HCl 2 mg 03/01/25 11:42 Loperamide Hcl 2 Mg Capsule PO QID PRN Loose Stool Ondansetron HCl 4 mg 03/01/25 07:08 Ondansetron Inj 4 Mg/2 Ml Vial IV PUSH Q4H PRN Nausea Oxycodone HCl 2.5 mg 03/01/25 09:27 03/01/25 16:56 Oxycodone Hcl (*Crx) 2.5 Mg Tab Ir PO 2.5 mg Q4H PRN Administration Pain Rated 7-10 Pantoprazole Sodium 40 mg 03/01/25 11:45 03/02/25 09:15 Pantoprazole 40 Mg Tablet PO 40 mg DAILY [place] Administration Perflutren Lipid Microsphere 0 ml 03/01/25 08:50 Perflutren Lipid Microspheres 1.5 Ml Vial Diluted To 10 Ml Total Volume IV PUSH 03/04/25 08:50 ONCE PRN adequate visualization Protocol Sotalol HCl 40 mg 03/01/25 21:00 03/02/25 20:36 Sotalol Hcl 40 Mg Tablet PO 40 mg Q12HR [place] Administration Vitamin D 125 mcg 03/02/25 09:00 03/02/25 09:09 Cholecalciferol (Vitamin D3) 125 Mcg (5,000 Units) Tablet PO 125 mcg DAILY [place] Administration Radiology Results: ITS Impressions Chest/Abdomen/Pelvis CTA 03/01/25 07:15 IMPRESSION: 1. Acute pulmonary embolus in right lower lobe. Infarct in right lower lobe. 2. Small right pleural effusion. 3. Dilated common duct, stable from 01/19/2022. Chest X-Ray 03/01/25 08:17 Impression: No acute cardiopulmonary abnormality. Venous Doppler Study 03/01/25 12:50 IMPRESSION: 1. No DVT either leg. Labs Labs: Laboratory Results - last 24 hr 03/02/25 03/02/25 03/03/25 03:07 12:42 04:24 WBC 9.1 RBC 3.26 L Hgb 10.0 L Hct 30.9 L MCV 94.8 MCH 30.7 MCHC 32.4 RDW 14.3 Plt Count 91 L MPV 11.6 H Immature Gran % (Auto) 0.3 Neut % (Auto) 77.9 H Lymph % (Auto) 11.9 L [place] % (Auto) 8.9 H Eos % (Auto) 0.9 Baso % (Auto) 0.1 L Lymph # (Auto) 1.09 [place] # (Auto) 0.8 H Eos # (Auto) 0.1 Baso # (Auto) 0.0 Abs Immat Gran (auto) 0.03 Absolute Neuts (auto) 7.1 H Absolute Nucleated RBC 0.000 Band Neutrophils % Not Reportable Nucleated RBC % 0.0 Platelet Estimate Decreased % Immature Plt Fraction 4.6 Anisocytosis 1+ Microcytosis 1+ Ovalocytes Occasional Schistocytes None seen Sodium 131 L Potassium 4.2 Chloride 100 Carbon Dioxide 23 Anion Gap 8 BUN 22 H Creatinine 1.46 H Estim Creat Clear Calc 31 Estimated GFR 45 L Glucose 93 Calcium 8.4 Magnesium 2.2 Total Bilirubin 0.8 AST 26 ALT 15 Alkaline Phosphatase 75 Total Protein 6.6 Albumin 3.4 L Procalcitonin 0.2 Influenza A (RT-PCR) Negative Influenza B (RT-PCR) Negative RSV (RT-PCR) Negative SARS-CoV-2 RNA (RT-PCR) Negative Quality VTE Prophylaxis VTE prophylaxis: pharmacologic ordered
[2025-03-03] MEDS: CHOLECALCIFEROL (VITAMIN D3) 125 MCG (5,000 UNITS) TABLET PO (08:20)
[2025-03-03] MEDS: DOXYCYCLINE HYCLATE 100 MG TABLET PO ×2 (08:21→22:08)
[2025-03-03] MEDS: guaiFENesin 12 HR 600 MG TABCR PO ×2 (08:21→22:08)
[2025-03-03] MEDS: APIXABAN 5 MG TABLET 10 MG PO ×2 (08:21→22:10)
[2025-03-03] MEDS: cefTRIAXone 1 GM in SODIUM CHLORIDE 0.9% IV 50 ML 100 ML IVPB (08:22)
[2025-03-03] MEDS: PANTOPRAZOLE 40 MG TABLET PO (08:22)
--- NOTE | 2025-03-03 08:24 | PM.PNCARD ---
Progress Note: A&P Assessment and Plan (1) Paroxysmal atrial fibrillation: Onset Date: 06/15/17 Code(s): I48.0 - Paroxysmal atrial fibrillation Status: Acute Assessment and Plan: In Sinus rhythm now. [id number] 3. On Eliquis. Start 03/01/25 Sotalol loading 40 mg BID. Monitor EKG for 5 doses and QT interval have been OK. Will sign off, please call with any questions. (2) Essential (primary) hypertension: Code(s): I10 - Essential (primary) hypertension Status: Acute Assessment and Plan: Stable. (3) Pulmonary embolism: Code(s): I26.99 - Other pulmonary embolism without acute cor pulmonale Status: Acute Assessment and Plan: On Eliquis. (4) Elevated troponin: Code(s): R79.89 - Other specified abnormal findings of blood chemistry Status: Acute Assessment and Plan: Probably due to PE. 03/01/25 Echo: EF 60-65%, grade I diastolic dysfunction (E/e' 12), mild LAE, mild-mod AI, mild TR. (5) Pneumonia: Code(s): J18.9 - Pneumonia, unspecified organism Status: Acute Assessment and Plan: On antibiotics as per hospitalist. Subjective Date/time seen: 03/03/25 08:24 Interval history: Denies chest pain or sob. Had chills. Exam Const: General: cooperative, healthy appearing and comfortable Orientation/consciousness: oriented to person, oriented to place and oriented to time Resp: Auscultation: clear to auscultation bilaterally, no crackles, no rales, no rhonchi and no wheezes Cardio: Rate: regular rate Rhythm: regular rhythm Heart sounds: no murmurs Peripheral pulses: dorsalis pedis present Neuro: General: oriented to person, oriented to place and oriented to time Extrem: Right lower extremity: edema Left lower extremity: no edema Other: Trace edema of right leg Objective Data Vital Signs Vital Signs: Vital Signs - 24 hr 03/02/25 09:09 03/02/25 09:11 03/02/25 10:00 Temperature 99.7 F H Pulse Rate 84 71 Respiratory Rate Blood Pressure Pulse Oximetry Oxygen Delivery 03/02/25 12:00 03/02/25 12:00 03/02/25 12:00 Temperature 98.7 F Pulse Rate 73 75 Respiratory Rate 18 Blood Pressure 126/64 Pulse Oximetry 95 Oxygen Delivery Room Air 03/02/25 13:55 03/02/25 14:00 03/02/25 14:11 Temperature Pulse Rate 75 Respiratory Rate Blood Pressure Pulse Oximetry Oxygen Delivery Room Air Room Air 03/02/25 15:23 03/02/25 15:28 03/02/25 16:00 Temperature 100.1 F H 100.1 F H Pulse Rate 74 Respiratory Rate 16 Blood Pressure 141/65 H Pulse Oximetry 97 Oxygen Delivery Room Air 03/02/25 16:00 03/02/25 18:00 03/02/25 20:00 Temperature 99.9 F H Pulse Rate 66 69 76 Respiratory Rate 15 Blood Pressure 166/61 H Pulse Oximetry 98 Oxygen Delivery 03/02/25 20:00 03/02/25 20:00 03/02/25 20:36 Temperature Pulse Rate 70 78 Respiratory Rate Blood Pressure Pulse Oximetry Oxygen Delivery Room Air 03/02/25 21:36 03/02/25 22:00 03/03/25 00:00 Temperature 99.0 F Pulse Rate 69 72 Respiratory Rate 14 Blood Pressure 152/56 H Pulse Oximetry 98 95 Oxygen Delivery Room Air 03/03/25 00:00 03/03/25 00:00 03/03/25 02:00 Temperature Pulse Rate 73 67 Respiratory Rate Blood Pressure Pulse Oximetry Oxygen Delivery Room Air 03/03/25 04:00 03/03/25 04:00 03/03/25 04:00 Temperature 100.6 F H Pulse Rate 76 69 Respiratory Rate 17 Blood Pressure 160/58 H Pulse Oximetry 93 Oxygen Delivery Room Air 03/03/25 06:00 03/03/25 08:00 03/03/25 08:21 Temperature 99.5 F Pulse Rate 74 79 79 Respiratory Rate 17 Blood Pressure 164/59 H Pulse Oximetry 95 Oxygen Delivery Intake/Output Intake/Output: Intake & Output 02/28/25 03/01/25 03/02/25 03/03/25 23:59 23:59 23:59 23:59 Intake Total 915.1 1127.3 75 Output Total 300 750 325 Balance 615.1 377.3 -250 Meds/Results Medications: Active Medications Generic Name Dose Route Start Last Admin Trade Name Freq PRN Reason Stop Dose Admin Acetaminophen 650 mg 03/01/25 07:08 03/02/25 15:23 Acetaminophen 325 Mg Tablet PO 650 mg Q4H PRN Administration Mild Pain (1-3) or Fever Apixaban 10 mg 03/02/25 09:25 03/03/25 08:21 Apixaban 5 Mg Tablet PO 03/08/25 21:01 10 mg Q12HR [place] Administration Apixaban 5 mg 03/09/25 09:00 Apixaban 5 Mg Tablet PO Q12HR [place] Calcium Carbonate 200 mg 03/01/25 11:42 03/02/25 09:15 Calcium Carbonate (Tums) 500 Mg (200 Mg Elemental) PO 200 mg BID PRN Administration Indigestion Doxycycline Hyclate 100 mg 03/02/25 09:25 03/03/25 08:21 Doxycycline Hyclate 100 Mg Tablet PO 100 mg Q12HR [place] Administration Guaifenesin 600 mg 03/02/25 09:25 03/03/25 08:21 Guaifenesin 12 Hr 600 Mg Tabcr PO 600 mg Q12HR [place] Administration Ceftriaxone Sodium 1 gm/ 50 mls @ 100 mls/hr 03/02/25 10:00 03/03/25 08:22 Sodium Chloride IVPB 100 mls/hr Q24H [place] Administration Levothyroxine Sodium 112 mcg 03/02/25 06:30 03/03/25 06:11 Levothyroxine Sodium 112 Mcg Tablet PO 112 mcg DAILY@0630 [place] Administration Levothyroxine Sodium 25 mcg 03/02/25 06:30 03/03/25 06:11 Levothyroxine Sodium 25 Mcg Tablet PO 25 mcg DAILY@0630 [place] Administration Loperamide HCl 2 mg 03/01/25 11:42 Loperamide Hcl 2 Mg Capsule PO QID PRN Loose Stool Ondansetron HCl 4 mg 03/01/25 07:08 Ondansetron Inj 4 Mg/2 Ml Vial IV PUSH Q4H PRN Nausea Oxycodone HCl 2.5 mg 03/01/25 09:27 03/01/25 16:56 Oxycodone Hcl (*Crx) 2.5 Mg Tab Ir PO 2.5 mg Q4H PRN Administration Pain Rated 7-10 Pantoprazole Sodium 40 mg 03/01/25 11:45 03/03/25 08:22 Pantoprazole 40 Mg Tablet PO 40 mg DAILY [place] Administration Perflutren Lipid Microsphere 0 ml 03/01/25 08:50 Perflutren Lipid Microspheres 1.5 Ml Vial Diluted To 10 Ml Total Volume IV PUSH 03/04/25 08:50 ONCE PRN adequate visualization Protocol Sotalol HCl 40 mg 03/01/25 21:00 03/03/25 08:21 Sotalol Hcl 40 Mg Tablet PO 40 mg Q12HR [place] Administration Vitamin D 125 mcg 03/02/25 09:00 03/03/25 08:20 Cholecalciferol (Vitamin D3) 125 Mcg (5,000 Units) Tablet PO 125 mcg DAILY [place] Administration Radiology Results: ITS Impressions Chest/Abdomen/Pelvis CTA 03/01/25 07:15 IMPRESSION: 1. Acute pulmonary embolus in right lower lobe. Infarct in right lower lobe. 2. Small right pleural effusion. 3. Dilated common duct, stable from 01/19/2022. Chest X-Ray 03/01/25 08:17 Impression: No acute cardiopulmonary abnormality. Venous Doppler Study 03/01/25 12:50 IMPRESSION: 1. No DVT either leg. Labs Labs: Laboratory Results - last 24 hr 03/02/25 03/02/25 03/03/25 03:07 12:42 04:24 WBC 9.1 RBC 3.26 L Hgb 10.0 L Hct 30.9 L MCV 94.8 MCH 30.7 MCHC 32.4 RDW 14.3 Plt Count 91 L MPV 11.6 H Immature Gran % (Auto) 0.3 Neut % (Auto) 77.9 H Lymph % (Auto) 11.9 L [place] % (Auto) 8.9 H Eos % (Auto) 0.9 Baso % (Auto) 0.1 L Lymph # (Auto) 1.09 [place] # (Auto) 0.8 H Eos # (Auto) 0.1 Baso # (Auto) 0.0 Abs Immat Gran (auto) 0.03 Absolute Neuts (auto) 7.1 H Absolute Nucleated RBC 0.000 Band Neutrophils % Not Reportable Nucleated RBC % 0.0 Platelet Estimate Decreased % Immature Plt Fraction 4.6 Anisocytosis 1+ Microcytosis 1+ Ovalocytes Occasional Schistocytes None seen Sodium 131 L Potassium 4.2 Chloride 100 Carbon Dioxide 23 Anion Gap 8 BUN 22 H Creatinine 1.46 H Estim Creat Clear Calc 31 Estimated GFR 45 L Glucose 93 Calcium 8.4 Magnesium 2.2 Total Bilirubin 0.8 AST 26 ALT 15 Alkaline Phosphatase 75 Total Protein 6.6 Albumin 3.4 L Procalcitonin 0.2 Influenza A (RT-PCR) Negative Influenza B (RT-PCR) Negative RSV (RT-PCR) Negative SARS-CoV-2 RNA (RT-PCR) Negative
--- NOTE | 2025-03-03 12:37 | P.PNONC_ITS ---
Progress Note: A&P Assessment and Plan (1) Paroxysmal atrial fibrillation: Onset Date: 06/15/17 Code(s): I48.0 - Paroxysmal atrial fibrillation Status: Acute Assessment and Plan: In Sinus rhythm now. [id number] 3. On Eliquis. (2) Essential (primary) hypertension: Code(s): I10 - Essential (primary) hypertension Status: Acute (3) Pulmonary embolism: Code(s): I26.99 - Other pulmonary embolism without acute cor pulmonale Status: Acute Assessment and Plan: On Eliquis. (4) Elevated troponin: Code(s): R79.89 - Other specified abnormal findings of blood chemistry Status: Acute Assessment and Plan: Per cardiology, probably due to PE. (5) Pneumonia: Code(s): J18.9 - Pneumonia, unspecified organism Status: Acute Assessment and Plan: S/P antibiotics Plan Please schedule f/u with Dr. Marx for one month after discharge. Subjective Date/time seen: 03/03/25 12:37 Interval history: Interval history: 03/02/25: Patient reports feeling well. Nephew present at bedside but had just arrived. Labs: (03/01/25): WBC 9.7, Hgb 11.7, Hct 36.1, Plt 89 WBC 10.3, Hgb 10.5, Hct 32.6, Plt 89 (03/02/25): WBC 10.3, Hgb 10.2, Hct 32.2, Plt 85, BUN 23, crea 1.58, GFR 42 03/03/25- Patient reports doing alittle better today. No family members present. He does not know when he is being discharged. Labs: (03/01/25): Vitamin B12 969, folate > 20, copper pending (03/03/25): WBC 9.1, Hgb 10.0, Hct 30.9, Plt 91 IMPRESSION/PLAN PE secondary to A fib and wheelchair bound - Okay to anticoagulate as long as plt count > 50k S/P iv heparin. Changed to Eliquis 10 mg bid Thrombocytopenia DD: DIC, ITP, MDS, nutrient deficiency, pseudothrombocytopenia, drug induced Review of peripheral smear showed no plt clumping. - Lab results pending - copper Elevated PT and PTT DD: liver disease, acute DIC, Vitamin K deficiency, acquired factor deficiencies. Observe Elevated D-dimer secondary to recent PE. Observe PLAN: Continue Eliquis 10 mg bid x 7 days followed by 5 mg bid Please schedule f/u with Dr. Marx for one month after discharge. Nothing further to add. Please call if questions arise. Thank you Review of Systems Review of Systems As above. Exam Const: Other: Well groomed male Eyes: Other: Pale conjunctivae Resp: Other: Bilateral air entry. No wheezing. Cardio: Other: RRR Neuro: Other: Alert and awake Objective Data Vital Signs Vital Signs: Vital Signs - 24 hr 03/02/25 13:55 03/02/25 14:00 03/02/25 14:11 Temperature Pulse Rate 75 Respiratory Rate Blood Pressure Pulse Oximetry Oxygen Delivery Room Air Room Air 03/02/25 15:23 03/02/25 15:28 03/02/25 16:00 Temperature 37.8 C H 37.8 C H Pulse Rate 74 Respiratory Rate 16 Blood Pressure 141/65 H Pulse Oximetry 97 Oxygen Delivery Room Air 03/02/25 16:00 03/02/25 18:00 03/02/25 20:00 Temperature 37.7 C H Pulse Rate 66 69 76 Respiratory Rate 15 Blood Pressure 166/61 H Pulse Oximetry 98 Oxygen Delivery 03/02/25 20:00 03/02/25 20:00 03/02/25 20:36 Temperature Pulse Rate 70 78 Respiratory Rate Blood Pressure Pulse Oximetry Oxygen Delivery Room Air 03/02/25 21:36 03/02/25 22:00 03/03/25 00:00 Temperature 37.2 C Pulse Rate 69 72 Respiratory Rate 14 Blood Pressure 152/56 H Pulse Oximetry 98 95 Oxygen Delivery Room Air 03/03/25 00:00 03/03/25 00:00 03/03/25 02:00 Temperature Pulse Rate 73 67 Respiratory Rate Blood Pressure Pulse Oximetry Oxygen Delivery Room Air 03/03/25 04:00 03/03/25 04:00 03/03/25 04:00 Temperature 38.1 C H Pulse Rate 76 69 Respiratory Rate 17 Blood Pressure 160/58 H Pulse Oximetry 93 Oxygen Delivery Room Air 03/03/25 06:00 03/03/25 08:00 03/03/25 08:00 Temperature 37.5 C Pulse Rate 74 79 80 Respiratory Rate 17 Blood Pressure 164/59 H Pulse Oximetry 95 Oxygen Delivery 03/03/25 08:00 03/03/25 08:21 03/03/25 10:00 Temperature Pulse Rate 79 69 Respiratory Rate Blood Pressure Pulse Oximetry Oxygen Delivery Room Air 03/03/25 10:58 Temperature Pulse Rate 69 Respiratory Rate Blood Pressure Pulse Oximetry Oxygen Delivery Intake/Output Intake/Output: Intake & Output 02/28/25 03/01/25 03/02/25 03/03/25 23:59 23:59 23:59 23:59 Intake Total 915.1 1127.3 365 Output Total 300 750 325 Balance 615.1 377.3 40 Meds/Results Medications: Active Medications Generic Name Dose Route Start Last Admin Trade Name Freq PRN Reason Stop Dose Admin Acetaminophen 650 mg 03/01/25 07:08 03/02/25 15:23 Acetaminophen 325 Mg Tablet PO 650 mg Q4H PRN Administration Mild Pain (1-3) or Fever Apixaban 10 mg 03/02/25 09:25 03/03/25 08:21 Apixaban 5 Mg Tablet PO 03/08/25 21:01 10 mg Q12HR [place] Administration Apixaban 5 mg 03/09/25 09:00 Apixaban 5 Mg Tablet PO Q12HR [place] Calcium Carbonate 200 mg 03/01/25 11:42 03/02/25 09:15 Calcium Carbonate (Tums) 500 Mg (200 Mg Elemental) PO 200 mg BID PRN Administration Indigestion Doxycycline Hyclate 100 mg 03/02/25 09:25 03/03/25 08:21 Doxycycline Hyclate 100 Mg Tablet PO 100 mg Q12HR [place] Administration Guaifenesin 600 mg 03/02/25 09:25 03/03/25 08:21 Guaifenesin 12 Hr 600 Mg Tabcr PO 600 mg Q12HR [place] Administration Ceftriaxone Sodium 1 gm/ 50 mls @ 100 mls/hr 03/02/25 10:00 03/03/25 09:29 Sodium Chloride IVPB Infused Q24H [place] Infusion Levothyroxine Sodium 112 mcg 03/02/25 06:30 03/03/25 06:11 Levothyroxine Sodium 112 Mcg Tablet PO 112 mcg DAILY@0630 [place] Administration Levothyroxine Sodium 25 mcg 03/02/25 06:30 03/03/25 06:11 Levothyroxine Sodium 25 Mcg Tablet PO 25 mcg DAILY@0630 [place] Administration Loperamide HCl 2 mg 03/01/25 11:42 Loperamide Hcl 2 Mg Capsule PO QID PRN Loose Stool Ondansetron HCl 4 mg 03/01/25 07:08 Ondansetron Inj 4 Mg/2 Ml Vial IV PUSH Q4H PRN Nausea Oxycodone HCl 2.5 mg 03/01/25 09:27 03/01/25 16:56 Oxycodone Hcl (*Crx) 2.5 Mg Tab Ir PO 2.5 mg Q4H PRN Administration Pain Rated 7-10 Pantoprazole Sodium 40 mg 03/01/25 11:45 03/03/25 08:22 Pantoprazole 40 Mg Tablet PO 40 mg DAILY [place] Administration Perflutren Lipid Microsphere 0 ml 03/01/25 08:50 Perflutren Lipid Microspheres 1.5 Ml Vial Diluted To 10 Ml Total Volume IV PUSH 03/04/25 08:50 ONCE PRN adequate visualization Protocol Sotalol HCl 40 mg 03/01/25 21:00 03/03/25 08:21 Sotalol Hcl 40 Mg Tablet PO 40 mg Q12HR [place] Administration Vitamin D 125 mcg 03/02/25 09:00 03/03/25 08:20 Cholecalciferol (Vitamin D3) 125 Mcg (5,000 Units) Tablet PO 125 mcg DAILY [place] Administration Radiology Results: ITS Impressions Chest/Abdomen/Pelvis CTA 03/01/25 07:15 IMPRESSION: 1. Acute pulmonary embolus in right lower lobe. Infarct in right lower lobe. 2. Small right pleural effusion. 3. Dilated common duct, stable from 01/19/2022. Chest X-Ray 03/01/25 08:17 Impression: No acute cardiopulmonary abnormality. Venous Doppler Study 03/01/25 12:50 IMPRESSION: 1. No DVT either leg. Labs Labs: Laboratory Results - last 24 hr 03/02/25 03/03/25 12:42 04:24 WBC 9.1 RBC 3.26 L Hgb 10.0 L Hct 30.9 L MCV 94.8 MCH 30.7 MCHC 32.4 RDW 14.3 Plt Count 91 L MPV 11.6 H Immature Gran % (Auto) 0.3 Neut % (Auto) 77.9 H Lymph % (Auto) 11.9 L [place] % (Auto) 8.9 H Eos % (Auto) 0.9 Baso % (Auto) 0.1 L Lymph # (Auto) 1.09 [place] # (Auto) 0.8 H Eos # (Auto) 0.1 Baso # (Auto) 0.0 Abs Immat Gran (auto) 0.03 Absolute Neuts (auto) 7.1 H Absolute Nucleated RBC 0.000 Band Neutrophils % Not Reportable Nucleated RBC % 0.0 Platelet Estimate Decreased % Immature Plt Fraction 4.6 Anisocytosis 1+ Microcytosis 1+ Ovalocytes Occasional Schistocytes None seen Sodium 131 L Potassium 4.2 Chloride 100 Carbon Dioxide 23 Anion Gap 8 BUN 22 H Creatinine 1.46 H Estim Creat Clear Calc 31 Estimated GFR 45 L Glucose 93 Calcium 8.4 Magnesium 2.2 Total Bilirubin 0.8 AST 26 ALT 15 Alkaline Phosphatase 75 Total Protein 6.6 Albumin 3.4 L Influenza A (RT-PCR) Negative Influenza B (RT-PCR) Negative RSV (RT-PCR) Negative SARS-CoV-2 RNA (RT-PCR) Negative
[2025-03-04] VITALS (9 sets, daily range): BP systolic 137–158; BP diastolic 59–63; PULSE 60–81; RESP 16; TEMP 36.9–37.5; O2SAT 94–95
[2025-03-04 04:04] LABS: Hematocrit 31.0 % (42.0-52.0); Hemoglobin 10.1 g/dL (14.0-18.0); Immature Granulocyte Percent A 0.5 % (0-0.5); Immature Platelet Fraction Pct 4.6 % (0.9-11.2); Lymphocytes Absolute Auto 1.25 K/mm3 (0.9-3.2); Mean Corpuscular HGB Conc 32.6 g/dl (32-36); Mean Corpuscular Hemoglobin 30.8 pg (26-34); Mean Corpuscular Volume 94.5 fl (80-100); Nucleated Red Blood Cells Absolute Auto 0.000 K/mm3 (0.0-0.012); Nucleated Red Blood Cells Perc 0.0 % (0.0-0.2); Platelet Count Result 92 k/mm3 (150-375); Red Blood Count 3.28 M/mm3 (4.6-6.20); White Blood Count 7.6 K/mm3 (4.5-10.0)
[2025-03-04 04:10] LABS: Alanine Aminotransferase 19 U/L (6-50); Albumin Level 3.3 g/dL (3.5-5.1); Alkaline Phosphatase 72 U/L (38-126); Anion Gap 9 mmol/L (4-12); Aspartate Amino Transferase 30 U/L (17-59); Bilirubin,Total 0.7 mg/dL (0.2-1.3); Blood Urea Nitrogen 23 mg/dL (9-20); Calcium 8.3 mg/dL (8.4-10.2); Carbon Dioxide 21 mmol/L (22-30); Chloride 100 mmol/L (98-107); Estimated CRCL calculation 31 ml/min; Estimated Glomerular Filt Rate 46; Glucose 98 mg/dL (65-110); Magnesium 2.2 mg/dL (1.6-2.3); Potassium 4.2 mmol/L (3.4-5.0); Sodium 130 mmol/L (137-145); Total Protein 6.6 g/dL (6.3-8.2)
[2025-03-04 04:47] LABS: Anisocytosis 1+; Schistocytes None Seen
[2025-03-04] MEDS: LEVOTHYROXINE SODIUM 112 MCG TABLET PO (05:38)
[2025-03-04] MEDS: LEVOTHYROXINE SODIUM 25 MCG TABLET PO (05:39)
--- NOTE | 2025-03-04 08:08 | P.PNIM_ITS ---
Progress Note: A&P Assessment and Plan (1) Pulmonary embolism: Code(s): I26.99 - Other pulmonary embolism without acute cor pulmonale Status: Acute Assessment and Plan: - CTA chest with pulmonary embolus of the RLL with associated RLL infarct - likely provoked in setting of recent COVID infection and immobility - echo with no signs of right heart strain - initially started on heparin gtt, transitioned to Eliquis - hematology consulted in setting of thrombocytopenia, OK to continue anticoagulation if plts >50K (2) Pneumonia: Code(s): J18.9 - Pneumonia, unspecified organism Status: Acute Assessment and Plan: - complaining of productive cough. Tmax 102.1. Now afebrile x 24 hours/ - recent COVID infection diagnosed 3 weeks ago at [facility]. - CTA chest with groudglass opacities. RLL rhonchi noted on exam. - WBC 9.1, procal 0.2 - no hypoxia - viral screen negative - continue Rocephin/azithromycin for suspected CAP - incentive spirometry - blood cultures, urine antigens, sputum culture pending (3) Atrial fibrillation with RVR: Code(s): I48.91 - Unspecified atrial fibrillation Status: Acute Assessment and Plan: - no prior history documented - HR 150s on arrival to ED. EKG appeared to be Aflutter with RVR -received IV metoprolol in the ED with improvement. Repeat EKG with atrial fibrillation with controlled rate. - echo with EF 60-65%, grade I diastolic dysfunction (E/e' 12), mild LAE, mild- mod AI, mild TR. - TSH and mag WNL - cardio following - stopped metoprolol, started sotalol load. Patient is now in NSR. - monitor on tele (4) Non-ST elevation ND (NSTEMI): Code(s): I21.4 - Non-ST elevation (NSTEMI) myocardial infarction Status: Acute Assessment and Plan: - EKG Afib with controlled rate, no acute ST changes - trop I 0.286, 0.402, 0.465, 0.375 - likely demand ischemia in setting of Afib with RVR and renal insufficiency - cardio followed, no plan for further ischemic eval (5) Thrombocytopenia: Code(s): D69.6 - Thrombocytopenia, unspecified Status: Acute Assessment and Plan: - Plts 92, near baseline - hematology consulted due to need for anticoagulation , OK to anticoagulate if platelets >50K (6) CKD (chronic kidney disease): Code(s): N18.9 - Chronic kidney disease, unspecified Status: Acute Assessment and Plan: - Cr 1.45, stable - encourage PO intake - avoid nephrotoxins (7) Hypothyroid: Code(s): E03.9 - Hypothyroidism, unspecified Status: Acute Assessment and Plan: - TSH WNL - continue home Synthroid (8) Generalized weakness: Code(s): R53.1 - Weakness Status: Acute Assessment and Plan: -Notified by nursing and PT for concerns of stiffness and spasticity. - Patient states he has felt stiff for at least 1-2 weeks. Apparently he was once ambulatory at the intermediate, but hasn't been for the last several days. He reports chronic issues with his hips and knees. - Neuro exam with no focal deficits, strength 5/5 in BUEs, 4/5 in BLEs. Bilateral intention tremors noted which patient states are ongoing. Patient has documentation of Parkinson's disease, but no neuro notes to review and patient denies this diagnosis. - suspect underlying infection is contributing to weakness, less likely a neurologic process. Offered further imaging including a head CT to further evaluate. Patient politely declined further work-up and wants to focus on comfort measures. (9) Hyponatremia: Code(s): E87.1 - Hypo-osmolality and hyponatremia Status: Acute Assessment and Plan: - Na 130 - likely due to decreased PO intake in setting of acute illness - PO intake has improved - monitor BMP Plan DVT prophylaxis: Darryl Code status: DNR - confirmed on admission Dispo: likely discharge back to [facility] tomorrow if cultures negative Subjective Date/time seen: 03/04/25 08:08 Interval history: Patient seen and examined at bedside. Doing much better today. Cough improved, afebrile. Discussed plan to discharge tomorrow if blood cultures remain negative. Discussed plan of care with brother at bedside who was in agreement. Review of Systems Review of Systems: All systems reviewed & are unremarkable except as noted in HPI and below Exam Narrative: General: NAD Eyes: EOMI ENT: neck supple Cardiovascular: regular rate and rhythm Respiratory: RLL rhonchi, respirations even and unlabored on RA Gastrointestinal: Soft, non tender Genitourinary: no suprapubic tenderness Musculoskeletal: No edema Skin: warm, dry Neuro: Alert. Psych: Mood appropriate Objective Data Vital Signs Vital Signs: Vital Signs - 24 hr 03/03/25 08:21 03/03/25 10:00 03/03/25 10:58 Temperature Pulse Rate 79 69 69 Respiratory Rate Blood Pressure Pulse Oximetry Oxygen Delivery 03/03/25 12:00 03/03/25 15:54 03/03/25 16:00 Temperature 99.1 F Pulse Rate 72 64 59 L Respiratory Rate 16 Blood Pressure 145/54 H Pulse Oximetry 97 Oxygen Delivery 03/03/25 20:00 03/03/25 20:00 03/03/25 22:07 Temperature Pulse Rate 66 71 Respiratory Rate Blood Pressure Pulse Oximetry Oxygen Delivery Room Air 03/04/25 00:00 03/04/25 00:00 03/04/25 04:00 Temperature 99.5 F Pulse Rate 70 62 62 Respiratory Rate 16 Blood Pressure 144/62 H Pulse Oximetry 94 Oxygen Delivery 03/04/25 07:53 Temperature 98.5 F Pulse Rate 65 Respiratory Rate 16 Blood Pressure 158/59 H Pulse Oximetry 95 Oxygen Delivery Intake/Output Intake/Output: Intake & Output 03/01/25 03/02/25 03/03/25 03/04/25 23:59 23:59 23:59 23:59 Intake Total 915.1 1127.3 365 250 Output Total 300 750 575 400 Balance 615.1 939.3 -935 -573 Meds/Results Medications: Active Medications Generic Name Dose Route Start Last Admin Trade Name Freq PRN Reason Stop Dose Admin Acetaminophen 650 mg 03/01/25 07:08 03/02/25 15:23 Acetaminophen 325 Mg Tablet PO 650 mg Q4H PRN Administration Mild Pain (1-3) or Fever Apixaban 10 mg 03/02/25 09:25 03/03/25 22:10 Apixaban 5 Mg Tablet PO 03/08/25 21:01 10 mg Q12HR [place] Administration Apixaban 5 mg 03/09/25 09:00 Apixaban 5 Mg Tablet PO Q12HR [place] Calcium Carbonate 200 mg 03/01/25 11:42 03/02/25 09:15 Calcium Carbonate (Tums) 500 Mg (200 Mg Elemental) PO 200 mg BID PRN Administration Indigestion Doxycycline Hyclate 100 mg 03/02/25 09:25 03/03/25 22:08 Doxycycline Hyclate 100 Mg Tablet PO 100 mg Q12HR [place] Administration Guaifenesin 600 mg 03/02/25 09:25 03/03/25 22:08 Guaifenesin 12 Hr 600 Mg Tabcr PO 600 mg Q12HR [place] Administration Ceftriaxone Sodium 1 gm/ 50 mls @ 100 mls/hr 03/02/25 10:00 03/03/25 09:29 Sodium Chloride IVPB Infused Q24H [place] Infusion Levothyroxine Sodium 112 mcg 03/02/25 06:30 03/04/25 05:38 Levothyroxine Sodium 112 Mcg Tablet PO 112 mcg DAILY@0630 [place] Administration Levothyroxine Sodium 25 mcg 03/02/25 06:30 03/04/25 05:39 Levothyroxine Sodium 25 Mcg Tablet PO 25 mcg DAILY@0630 [place] Administration Loperamide HCl 2 mg 03/01/25 11:42 Loperamide Hcl 2 Mg Capsule PO QID PRN Loose Stool Ondansetron HCl 4 mg 03/01/25 07:08 Ondansetron Inj 4 Mg/2 Ml Vial IV PUSH Q4H PRN Nausea Oxycodone HCl 2.5 mg 03/01/25 09:27 03/01/25 16:56 Oxycodone Hcl (*Crx) 2.5 Mg Tab Ir PO 2.5 mg Q4H PRN Administration Pain Rated 7-10 Pantoprazole Sodium 40 mg 03/01/25 11:45 03/03/25 08:22 Pantoprazole 40 Mg Tablet PO 40 mg DAILY [place] Administration Perflutren Lipid Microsphere 0 ml 03/01/25 08:50 Perflutren Lipid Microspheres 1.5 Ml Vial Diluted To 10 Ml Total Volume IV PUSH 03/04/25 08:50 ONCE PRN adequate visualization Protocol Sotalol HCl 40 mg 03/01/25 21:00 03/03/25 22:07 Sotalol Hcl 40 Mg Tablet PO 40 mg Q12HR [place] Administration Vitamin D 125 mcg 03/02/25 09:00 03/03/25 08:20 Cholecalciferol (Vitamin D3) 125 Mcg (5,000 Units) Tablet PO 125 mcg DAILY [place] Administration Radiology Results: ITS Impressions Chest/Abdomen/Pelvis CTA 03/01/25 07:15 IMPRESSION: 1. Acute pulmonary embolus in right lower lobe. Infarct in right lower lobe. 2. Small right pleural effusion. 3. Dilated common duct, stable from 01/19/2022. Chest X-Ray 03/01/25 08:17 Impression: No acute cardiopulmonary abnormality. Venous Doppler Study 03/01/25 12:50 IMPRESSION: 1. No DVT either leg. Labs Labs: Laboratory Results - last 24 hr 03/04/25 03:28 WBC 7.6 RBC 3.28 L Hgb 10.1 L Hct 31.0 L MCV 94.5 MCH 30.8 MCHC 32.6 RDW 14.3 Plt Count 92 L MPV 11.4 H Immature Gran % (Auto) 0.5 Neut % (Auto) 71.9 Lymph % (Auto) 16.5 L [place] % (Auto) 10.2 H Eos % (Auto) 0.8 Baso % (Auto) 0.1 L Lymph # (Auto) 1.25 [place] # (Auto) 0.8 H Eos # (Auto) 0.1 Baso # (Auto) 0.0 Abs Immat Gran (auto) 0.04 H Absolute Neuts (auto) 5.4 Absolute Nucleated RBC 0.000 Band Neutrophils % Not Reportable Nucleated RBC % 0.0 Platelet Estimate Decreased % Immature Plt Fraction 4.6 Anisocytosis 1+ Schistocytes None seen Sodium 130 L Potassium 4.2 Chloride 100 Carbon Dioxide 21 L Anion Gap 9 BUN 23 H Creatinine 1.45 H Estim Creat Clear Calc 31 Estimated GFR 46 L Glucose 98 Calcium 8.3 L Magnesium 2.2 Total Bilirubin 0.7 AST 30 ALT 19 Alkaline Phosphatase 72 Total Protein 6.6 Albumin 3.3 L Quality VTE Prophylaxis VTE prophylaxis: pharmacologic ordered
[2025-03-04] MEDS: guaiFENesin 12 HR 600 MG TABCR PO ×2 (08:25→20:53)
[2025-03-04] MEDS: PANTOPRAZOLE 40 MG TABLET PO (08:26)
[2025-03-04] MEDS: APIXABAN 5 MG TABLET 10 MG PO ×2 (08:26→20:52)
[2025-03-04] MEDS: CHOLECALCIFEROL (VITAMIN D3) 125 MCG (5,000 UNITS) TABLET PO (08:26)
[2025-03-04] MEDS: DOXYCYCLINE HYCLATE 100 MG TABLET PO ×2 (08:27→20:53)
[2025-03-04] MEDS: cefTRIAXone 1 GM in SODIUM CHLORIDE 0.9% IV 50 ML 100 ML IVPB (08:28)
--- NOTE | 2025-03-04 13:00 | PCOTNOTE ---
Patient refused to participate this date. Patient states he is supposed to leave tomorrow, he requires his own personal thing to get out of the bed. He states he must have his own shoes, he has a heel lift and 1 leg in longer than the other. Patient refuses all activity and requested to come back tomorrow to assist him in getting ready to go home.
[2025-03-04] MEDS: oxyCODONE HCL (*CRX) 2.5 MG TAB IR PO (14:05)
[2025-03-05] VITALS: BP 154/56; PULSE 64; PULSE 65; RESP 16; TEMP 36.8; O2SAT 95
[2025-03-05 04:00] VITALS: PULSE 63
[2025-03-05 04:24] LABS: Hematocrit 32.1 % (42.0-52.0); Hemoglobin 10.7 g/dL (14.0-18.0); Immature Granulocyte Percent A 0.5 % (0-0.5); Immature Platelet Fraction Pct 4.1 % (0.9-11.2); Lymphocytes Absolute Auto 1.05 K/mm3 (0.9-3.2); Mean Corpuscular HGB Conc 33.3 g/dl (32-36); Mean Corpuscular Hemoglobin 30.9 pg (26-34); Mean Corpuscular Volume 92.8 fl (80-100); Nucleated Red Blood Cells Absolute Auto 0.000 K/mm3 (0.0-0.012); Nucleated Red Blood Cells Perc 0.0 % (0.0-0.2); Platelet Count Result 109 k/mm3 (150-375); Red Blood Count 3.46 M/mm3 (4.6-6.20); White Blood Count 6.6 K/mm3 (4.5-10.0)
[2025-03-05 04:41] LABS: Anion Gap 6 mmol/L (4-12); Blood Urea Nitrogen 23 mg/dL (9-20); Calcium 8.6 mg/dL (8.4-10.2); Carbon Dioxide 23 mmol/L (22-30); Chloride 99 mmol/L (98-107); Estimated CRCL calculation 34 ml/min; Estimated Glomerular Filt Rate 51; Glucose 114 mg/dL (65-110); Magnesium 2.2 mg/dL (1.6-2.3); Potassium 4.3 mmol/L (3.4-5.0); Sodium 128 mmol/L (137-145)
[2025-03-05] MEDS: LEVOTHYROXINE SODIUM 25 MCG TABLET PO (06:23)
[2025-03-05] MEDS: LEVOTHYROXINE SODIUM 112 MCG TABLET PO (06:23)
[2025-03-05 07:43] VITALS: BP 165/61; PULSE 63; RESP 18; TEMP 36.9; O2SAT 96
[2025-03-05 08:00] VITALS: PULSE 65; RESP 18; O2SAT 96
[2025-03-05 08:37] VITALS: PULSE 65
[2025-03-05] MEDS: PANTOPRAZOLE 40 MG TABLET PO (08:38)
[2025-03-05] MEDS: guaiFENesin 12 HR 600 MG TABCR PO (08:38)
[2025-03-05] MEDS: CHOLECALCIFEROL (VITAMIN D3) 125 MCG (5,000 UNITS) TABLET PO (08:38)
[2025-03-05] MEDS: DOXYCYCLINE HYCLATE 100 MG TABLET PO (08:38)
[2025-03-05] MEDS: APIXABAN 5 MG TABLET 10 MG PO (08:38)
--- NOTE | 2025-03-05 09:47 | P.DS_ITS ---
DS: Admitting Diagnosis Discharge Date 03/05/25 Admitting Diagnosis - pulmonary embolism - pneumonia - atrial fibrillation with RVR - NSTEMI - thrombocytopenia - CKD - hyponatremia DS: Discharge Diagnosis Discharge Diagnosis (1) Pulmonary embolism: Code(s): I26.99 - Other pulmonary embolism without acute cor pulmonale Status: Acute (2) Pneumonia: Code(s): J18.9 - Pneumonia, unspecified organism Status: Acute (3) Atrial fibrillation with RVR: Code(s): I48.91 - Unspecified atrial fibrillation Status: Acute (4) Non-ST elevation PR (NSTEMI): Code(s): I21.4 - Non-ST elevation (NSTEMI) myocardial infarction Status: Acute (5) Thrombocytopenia: Code(s): D69.6 - Thrombocytopenia, unspecified Status: Acute (6) CKD (chronic kidney disease): Code(s): N18.9 - Chronic kidney disease, unspecified Status: Acute (7) Hypothyroid: Code(s): E03.9 - Hypothyroidism, unspecified Status: Acute (8) Generalized weakness: Code(s): R53.1 - Weakness Status: Acute (9) Hyponatremia: Code(s): E87.1 - Hypo-osmolality and hyponatremia Status: Acute DS: Summary Hospital Course Reason for hospitalization: - pulmonary embolism - pneumonia - atrial fibrillation with RVR - NSTEMI - thrombocytopenia - CKD - hyponatremia Hospital Course: Mr. Andersen is an 89-year-old male with a history of paroxysmal atrial fibrillation, chronic kidney disease stage 3, thrombocytopenia, and hypertension who was admitted with acute right lower lobe pulmonary embolism, associated pulmonary infarct, and new-onset atrial fibrillation with rapid ventricular response. On presentation, he was tachycardic and febrile, with complaints of right-sided chest pain, productive cough, and generalized weakness following a recent fall. Initial workup revealed elevated troponin and BNP, normocytic anemia, thrombocytopenia near baseline, and acute kidney injury on chronic kidney disease. Imaging confirmed a right lower lobe pulmonary embolism with infarct and a small right pleural effusion. He was started on a heparin drip for anticoagulation, later transitioned to apixaban (Eliquis) after hematology consultation confirmed it was safe to anticoagulate with platelets >50K. Cardiology managed his atrial fibrillation, initially with metoprolol and then sotalol, achieving rate and rhythm control. He developed fevers and a productive cough during hospitalization, with chest imaging showing ground-glass opacities and right lower lobe rhonchi on exam, consistent with pneumonia. He was treated with ceftriaxone and doxycycline, later transitioned to oral doxycycline and Augmentin to complete a 7-day course. Blood cultures remained negative at 48 hours, and he remained afebrile for over 48 hours prior to discharge. His cough and respiratory symptoms improved significantly, and he was able to resume baseline activity. Patient did have mild hyponatremia that trended down slightly to 128 on day of discharge. Overall, his p.o. intake was improving and he was asymptomatic from this. Patient did express during his hospitalization that he wanted to focus mainly on comfort measures moving forward. He was discharged in stable condition back to his detention with instructions to complete his antibiotic course and continue anticoagulation, recheck labs in 5-7 days with outpatient follow-up with cardiology, hematology recommended. Status at Discharge Overall status at discharge: patient is progressing back to baseline Time Spent with Patient Time attestation: Total time spent providing and/or coordinating discharge services: Time spent: Greater than 30 minutes Exam Narrative: General: NAD Eyes: EOMI ENT: neck supple Cardiovascular: regular rate and rhythm Respiratory: clear to auscultation bilaterally, respirations even and unlabored on RA Gastrointestinal: Soft, non tender Genitourinary: no suprapubic tenderness Musculoskeletal: No edema Skin: warm, dry Neuro: Alert. Psych: Mood appropriate DS: Data Data Completed and Pending Completed studies during hospitalization: ITS Impressions Chest/Abdomen/Pelvis CTA 03/01/25 07:15 IMPRESSION: 1. Acute pulmonary embolus in right lower lobe. Infarct in right lower lobe. 2. Small right pleural effusion. 3. Dilated common duct, stable from 01/19/2022. Chest X-Ray 03/01/25 08:17 Impression: No acute cardiopulmonary abnormality. Venous Doppler Study 03/01/25 12:50 IMPRESSION: 1. No DVT either leg. Labs on day of discharge: Labs from last 24 hours 03/05/25 03:58 WBC 6.6 RBC 3.46 L Hgb 10.7 L Hct 32.1 L MCV 92.8 MCH 30.9 MCHC 33.3 RDW 14.4 Plt Count 109 L MPV 11.0 H Immature Gran % (Auto) 0.5 Neut % (Auto) 70.8 Lymph % (Auto) 16.0 L [place] % (Auto) 10.8 H Eos % (Auto) 1.7 Baso % (Auto) 0.2 Lymph # (Auto) 1.05 [place] # (Auto) 0.7 H Eos # (Auto) 0.1 Baso # (Auto) 0.0 Abs Immat Gran (auto) 0.03 Absolute Neuts (auto) 4.7 Absolute Nucleated RBC 0.000 Nucleated RBC % 0.0 % Immature Plt Fraction 4.1 Sodium 128 L Potassium 4.3 Chloride 99 Carbon Dioxide 23 Anion Gap 6 BUN 23 H Creatinine 1.33 H Estim Creat Clear Calc 34 Estimated GFR 51 L Glucose 114 H Calcium 8.6 Magnesium 2.2 Preliminary micro results at discharge 03/02/25 12:37 Blood Culture - Preliminary Blood 03/02/25 12:21 Blood Culture - Preliminary Blood Discharge Plan Discharge Attending physician on discharge: Jose Guerra Consulting providers: Jasper Marx; Greg Mesa Discharging Clinician: Amada Saunders Anticipated Discharge Date/Time: 03/05/25 08:55 Patient Disposition: [facility] Activity: unlimited Diet: regular Discharge Instructions: Diagnosis: Pneumonia, pulmonary embolism, Atrial fibrillation a. Eliquis (apixaban) * Purpose:?Blood thinner for pulmonary embolism and atrial fibrillation stroke prevention. * Dose:?Continue Eliquis 10mg BID for 7 doses then 5mg twice daily indefinitely * Precautions: * Take at the same times each day. * Do not skip doses. * Monitor for signs of bleeding (unusual bruising, blood in urine or stool, nosebleeds, coughing up blood). * Avoid NSAIDs and aspirin unless specifically instructed. b. Sotalol * Purpose:?Heart rhythm medication for atrial fibrillation. * Precautions: * Monitor heart rate and blood pressure. * Watch for symptoms of dizziness, lightheadedness, or palpitations. * Notify provider if experiencing chest pain, shortness of breath, or fainting. c. Metoprolol * Instruction:?STOP metoprolol.?Do not administer further doses. d. Augmentin (amoxicillin-clavulanate) * Purpose:?Treats pneumonia. * Duration:?Continue for 3 more days e. Doxycycline * Purpose:?Treats pneumonia. * Duration:?Continue for 3 more days Activity * Encourage ambulation as tolerated. * Use fall precautions due to increased bleeding risk on Eliquis and possible dizziness from sotalol. Diet * No specific restrictions unless otherwise indicated. * Maintain adequate hydration. ?Monitoring * Bleeding:?Monitor for black/tarry stools, blood in urine, excessive bruising, coughing/vomiting blood, severe headache, sudden weakness/numbness. * Arrhythmia:?Monitor for palpitations, chest pain, shortness of breath, dizzi ness, or syncope. * Respiratory:?Monitor for increased cough, sputum, shortness of breath, or fever. * Vitals:?Monitor heart rate and blood pressure per facility protocol, especially after sotalol initiation. Follow-Up * Cardiology:?Arrange follow-up with cardiology for atrial fibrillation management and sotalol monitoring. * Hematology: follow-up in one month * Primary Care:?Notify primary care provider of discharge and new diagnoses. * Labs:?Arrange for repeat BMP and CBC in 3-5 days. Patient's sodium was mildly low in the hospital (128-133). Monitor sodium levels. Patient has thrombocytopenia - per hematology, OK to continue Eliquis if platelets >50K * Anticoagulation:?Continue Eliquis indefinitely due to new onset of Afib; follow up per protocol. When to Notify Provider * Any signs of bleeding or clotting as above. * Worsening respiratory symptoms. * New or worsening confusion, weakness, chest pain, palpitations, or syncope. * Any adverse reaction to new medications. All medications sent with patient or called in to facility pharmacy. Patient Instructions: Antibiotic Form, A-fib (Atrial Fibrillation) (GEN), Pulmonary Embolism (GEN), Heart Healthy Diet (GEN), High Troponin Levels (GEN) Patient Language: Romansh Stand Alone Forms: General Discharge Information Follow-up/Referrals: Jasper Marx MD [Physician, Hematology] Referral Note: follow-up in 1 month for blood clot and low platelets Greg Mesa DO [Physician, Cardiology] - Call for Appointment Referral Note: 1 month for new onset afib Discharge Medications: New Eliquis 5 mg Tablet 10 mg PO Q12HR 30 Days Qty: 120 0RF Rx Instructions: Take 10 mg BID for 7 doses, then start 5 mg BID for pulmonary embolism and atrial fibrillation guaifenesin [Mucus Relief ER] 600 mg Tablet Extended Release 12hr 600 mg PO Q12HR 7 Days Qty: 14 0RF acetaminophen 325 mg Tablet 650 mg PO Q4H PRN (Reason: Mild Pain (1-3) Or Fever) Qty: 30 0RF doxycycline hyclate 100 mg Tablet 100 mg PO Q12HR 3 Days Qty: 6 0RF amoxicillin-pot clavulanate 875-125 mg tablet 1 tablet PO Q12H Qty: 6 0RF sotalol 80 mg tablet 40 mg PO BID Qty: 30 0RF Continued autc-mbeeal-zhvicjod-D3-C-Mn 500-400-667 mg-mg-unit capsule 1 cap PO DAILY cholecalciferol (vitamin D3) 125 mcg (5,000 unit) capsule 125 mcg PO DAILY ICaps AREDS [id number] [id number]-hg-[id number] capsule 1 cap PO BID [place] 0.01 % drops 1 drop EACH EYE DAILY calcium carbonate [Tums] 200 mg calcium (500 mg) tablet,chewable 200 mg PO BID PRN (Reason: Indigestion) ascorbic acid (vitamin C) 500 mg capsule 500 mg PO DAILY loperamide 2 mg capsule 2 mg PO QID PRN (Reason: loose stool) fluticasone propionate 50 mcg/actuation spray,suspension 1 spray INTRANASAL .Q6hr pantoprazole 40 mg tablet,delayed release (DR/EC) 40 mg PO DAILY vitamin J80-jitrk acid 0.5-1 mg tablet 1 tablet PO DAILY Qty: 30 5RF levothyroxine 137 mcg tablet 137 mcg PO DAILY Qty: 90 1RF Discontinued metoprolol tartrate 25 mg tablet 12.5 mg PO DAILY Other Ambulatory Orders: Basic Metabolic Panel (Routine) Timeframe: 5 Days Location: Determined by Patient Ordered By: Amada Saunders Complete Blood Count with Diff (Routine) Timeframe: 5 Days Location: Determined by Patient Ordered By: Amada Saunders Date of admission: 03/02/25 13:41 Primary Care Provider: Meng Hameed Admitting Provider: Becca Pyle Attending physician on admission: Becca Pyle Condition: Stable
--- NOTE | 2025-03-05 11:11 | PC.NURSE ---
Report called to Rasheed at [facility] and discharge packet faxed over to [facility] prior to report being given. This was also discussed with Rasheed. Rasheed denies further questions related to discharge instructions at this time. He was given a our desk number should he have further questions later. The patient family member was also called (Richy Andersen) and informed of the patients discharge. He also denies further questions stating he spoke to the provider at length yesterday.
[2025-03-05 12:00] VITALS: PULSE 65
[2025-03-05 12:43] LABS: SARS-CoV-2 RNA PCR Negative (Negative)
--- NOTE | 2025-03-05 14:19 | PC.NURSE ---
Teodoro here to transfer patient to [facility] ([facility]). Report previously called to Rasheed. Reviewed current medications, allergies, and vital signs with EMS. Denies further questions. No acute distress noted. IV access removed intact. hospital monitor removed.
[2025-03-06 12:08] LABS: Copper, Serum or Plasma 93 ug/dL (69-132)
--- NOTE | 2025-03-08 08:18 | PC.NURSE ---
Sputum cx shows resp. melvin.
--- NOTE | 2025-03-11 08:30 | PC.NURSE ---
Blood cx show no growth.
== END 2025-03-05 14:04 | DRG 175 ==
LOC: ANHED 07:08 → ANHIMU 07:52
PROVIDERS: Internal Medicine Hematology & Oncology; Admitting Provider General Practice; Emergency Provider Student in an Organized Health Care Education/Training Program; PCP Family Medicine; Visit Provider Physician Assistant
DX: I26.99 Other pulmonary embolism without acute cor pulmonale (principal); I21.A1 Myocardial infarction type 2; J18.9 Pneumonia, unspecified organism; E87.1 Hypo-osmolality and hyponatremia; J90 Pleural effusion, not elsewhere classified; N17.9 Acute kidney failure, unspecified; I48.0 Paroxysmal atrial fibrillation; I13.10 Hypertensive heart and chronic kidney disease without heart failure, with stage 1 through stage 4 chronic kidney disease, or unspecified chronic kidney disease; N18.30 Chronic kidney disease, stage 3 unspecified; I51.89 Other ill-defined heart diseases; W06.XXXA Fall from bed, initial encounter; I36.1 Nonrheumatic tricuspid (valve) insufficiency; G89.29 Other chronic pain; G62.9 Polyneuropathy, unspecified; D69.6 Thrombocytopenia, unspecified; D64.9 Anemia, unspecified; E03.9 Hypothyroidism, unspecified; Z20.822 Contact with and (suspected) exposure to COVID-19; Z66 Do not resuscitate; Z90.49 Acquired absence of other specified parts of digestive tract; Z96.641 Presence of right artificial hip joint; Z99.3 Dependence on wheelchair; Z91.81 History of falling; Z79.51 Long term (current) use of inhaled steroids; Z87.891 Personal history of nicotine dependence; Z51.5 Encounter for palliative care
CPT/HCPCS: 36415; 71045; 71275; 74177; 80048; 80053; 81001; 82525; 82607; 82746; 83690; 83735; 83880; 84145; 84443; 84484; 85025; 85055; 85380; 85610; 85730; 87040; 87070; 87205; 87449; 87635; 87637; 87899; 93005; 93306; 93970; 96374; 96375; 96376; 97110; 97162; 97167; 97530; 99212; 99285; A9270; G0378; G0463; J0616; J0696; J1163; J1644; J2270; J7040; Q9967